=== PATIENT | female | born 1965 | race Caucasian/White ===

== ENCOUNTER 2022-11-26 11:55 | Outpatient (CLI) | payer BC, SELFPAY ==
[2022-11-26 17:54] LABS: C Reactive Protein* 7.1 mg/dL (0.5-1.0)
== END 2022-11-26 11:56 | disposition home or self-care (01) ==
LOC: LKVREF 11:56
PROVIDERS: PCP Emergency Medicine; Visit Provider Emergency Medicine
DX: R07.81 Pleurodynia (principal)
CPT/HCPCS: 86140

== ENCOUNTER 2023-05-24 15:45 | Emergency (ER) | payer BC, SELFPAY ==
[2023-05-24] VITALS (12 sets, daily range): BP systolic 120–133; BP diastolic 84–101; PULSE 80–89; RESP 18; TEMP 36.6; O2SAT 95–100; BMI 24.7
--- NOTE | 2023-05-24 17:42 | CRLHL7_ITS ---
For Patients: As a result of the Cures Act, medical imaging exams and procedure reports are released immediately into your electronic medical record. You may view this report before your referring provider. If you have questions, please contact your health care provider. INDICATION: Fall off horse, left hip pain. TECHNIQUE: Single AP view of the pelvis. Permanently recorded images are archived. COMPARISON: None. FINDINGS: No acute fracture or aggressive osseous lesion. Alignment is normal. The joint spaces are preserved. Degenerative changes of the lower lumbar spine. The soft tissues are unremarkable. IMPRESSION: No evidence of an acute bony abnormality. Dictated by Angelito Clayton MD @ 05/24/2023 6:33:18 PM (Electronically Signed)
--- NOTE | 2023-05-24 17:43 | ED.GENADULT ---
HPI - General Adult General Time Seen by Provider: 17:44 Date Seen: 05/24/23 Chief complaint: Hip Injury/Pain Stated complaint: Fell off horse, hip injured Time Seen by Provider: 05/24/23 17:09 Source: patient, EMS, RN notes reviewed and old records reviewed Mode of arrival: ambulatory Limitations: no limitations History of Present Illness HPI narrative: 57-year-old female who presents today with left buttock and hamstring pain after a horseback riding accident. Patient was running horse and it jerked, she felt pulling and pain in the left buttock radiating down the back of left leg and has had difficulty ambulating and putting weight on the leg since then. She did fall off a horse, no head injury or loss of consciousness. Denies neck pain, back pain, chest pain, or abdominal pain. No numbness or tingling in the leg. Related Data Home Medications Medication Instructions Recorded Confirmed aspirin 81 mg tablet,delayed 81 mg PO QDAY 11/26/22 03/31/23 release cholecalciferol (vitamin D3) 125 125 mcg PO QDAY 11/26/22 03/31/23 mcg (5,000 unit) tablet hydroxychloroquine 200 mg tablet 400 mg PO QDAY 11/26/22 03/31/23 (Plaquenil) loratadine 10 mg tablet 10 mg PO QDAY 11/26/22 03/31/23 Previous Rx's Medication Instructions Recorded citalopram 10 mg tablet 10 mg PO QDAY #90 tabs 03/31/23 clobetasol 0.05 % topical cream 1 applic topical BID #45 grams 03/31/23 lisinopril 10 mg tablet 10 mg PO QDAY #90 tabs 03/31/23 rosuvastatin 10 mg tablet 10 mg PO QDAY #90 tabs 03/31/23 atorvastatin 20 mg tablet 20 mg PO QDAY #90 tabs 04/14/23 Allergies Allergy/AdvReac Type Severity Reaction Status Date / Time morphine Allergy Severe Verified 03/31/23 15:05 Sulfa (Sulfonamide Allergy Intermediate Verified 03/31/23 15:05 Antibiotics) [facility] Medical History (Updated 05/24/23 @ 18:54 by Rudy Martínez MD) Knee pain, left ?M25.562 - Pain in left knee (ICD-10) Tubular adenoma of colon ?D12.6 - Benign neoplasm of colon, unspecified (ICD-10) Eczema ?L30.9 - Dermatitis, unspecified (ICD-10) Actinic keratoses ?L57.0 - Actinic keratosis (ICD-10) Long-term current use of testosterone replacement therapy ?Z79.890 - Hormone replacement therapy (ICD-10) History of malignant neoplasm of cervix ?Z85.41 - Personal history of malignant neoplasm of cervix uteri (ICD-10) Smokes 1 pack of cigarettes per day ?F17.210 - Nicotine dependence, cigarettes, uncomplicated (ICD-10) Cervical cancer ?C53.9 - Malignant neoplasm of cervix uteri, unspecified (ICD-10) 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, unspecified site (ICD-10) Pleuritic chest pain ?R07.81 - Pleurodynia (ICD-10) Surgical History (Updated 02/08/23 @ 17:48 by Valentina Garzon) Status post total abdominal hysterectomy ?Z90.710 - Acquired absence of both cervix and uterus (ICD-10) Status post tonsillectomy ?Z90.89 - Acquired absence of other organs (ICD-10) Status post partial hysterectomy (1992) ?Z90.711 - Acquired absence of uterus with remaining cervical stump (ICD-10) Status post ankle fusion (02/11/16) ?Z98.1 - Arthrodesis status (ICD-10) History of colonoscopy (01/19/09) ?Z98.890 - Other specified postprocedural states (ICD-10) S/P AMINATA-BSO ?Z90.710 - Acquired absence of both cervix and uterus (ICD-10) ?Z90.722 - Acquired absence of ovaries, bilateral (ICD-10) ?Z90.79 - Acquired absence of other genital organ(s) (ICD-10) Family History (Updated 02/12/23 @ 10:31 by Naomi Overton MD) Father Stroke Hyperlipidemia Mother Dementia High blood pressure Sister Hyperlipidemia Social History Smoking Status: Current every day smoker Little interest or pleasure in doing things: several days Feeling down, depressed, or hopeless: not at all Exam Narrative: Exam Narrative: General: Well-developed and well-nourished, no acute distress Head: Atraumatic and normocephalic Eyes: Pupils are equal reactive, extraocular motions intact, conjunctiva clear ENT: External nose and ears are normal, posterior pharynx without erythema or exudate Neck: No midline cervical tenderness, full spontaneous range of motion the neck, trachea midline, no adenopathy Heart: Regular rate and rhythm no murmurs or thrills Lungs: Clear to auscultation bilaterally without wheezes or crackles Abdomen: Soft, nontender, nondistended with active bowel sounds Musculoskeletal: Tenderness of the left buttock. No bruising or abnormal contour, hamstrings intact and mild pain with resisted knee flexion. Neurologic: Awake, alert, and oriented x3, no gross focal neurologic deficits, cranial nerves intact as tested Psych: Mood and affect are appropriate Skin: No rashes Const: Vital Signs, click to edit/add: Vital Signs - 24 hr 05/24/23 16:49 05/24/23 17:27 05/24/23 17:30 Temperature 97.9 F Pulse Rate 83 83 Pulse Rate [Pulse Oximeter] 80 Respiratory Rate 18 Blood Pressure Blood Pressure [Ri ght Upper Arm] 133/84 Pulse Oximetry 99 98 97 Oxygen Delivery Me thod Room Air 05/24/23 17:32 05/24/23 17:45 05/24/23 18:00 Temperature Pulse Rate 82 84 86 Pulse Rate [Pulse Oximeter] Respiratory Rate Blood Pressure 124/88 120/96 H Blood Pressure [Ri ght Upper Arm] Pulse Oximetry 95 100 98 Oxygen Delivery Me thod 05/24/23 18:01 05/24/23 18:02 Temperature Pulse Rate 82 85 Pulse Rate [Pulse Oximeter] Respiratory Rate Blood Pressure 133/101 H Blood Pressure [Ri ght Upper Arm] Pulse Oximetry 99 98 Oxygen Delivery Sd thod Course Course Hospital Course: Patient seen and examined, prior records are reviewed. Patient presents with left buttock and hamstring pain after a accident riding a horse. She did not fall directly on the area but says she felt a pulling. Concern for possible avulsion fracture or strain, x-rays are ordered. Oxycodone ordered for pain. If evaluation is negative today, patient be discharged with weight-bearing as tolerated and follow-up with orthopedics. Reevaluation(s) Time of Reevaluation #1: 18:25 Reevaluation #1: X-ray independently interpreted by me does not demonstrate any acute abnormality Vital Signs Vital signs: Initial Vital Signs Temperature 97.9 F 05/24/23 16:49 Temperature Source Temporal Artery Scan 05/24/23 16:49 Pulse Rate 80 05/24/23 16:49 Pulse Rhythm Regular 05/24/23 16:49 Respiratory Rate 18 05/24/23 16:49 Blood Pressure 133/84 05/24/23 16:49 Blood Pressure Mean 100 05/24/23 16:49 Blood Pressure Position Sitting 05/24/23 16:49 Pulse Oximetry 99 05/24/23 16:49 Oxygen Delivery Method Room Air 05/24/23 16:49 Vital Signs Temperature 97.9 F 05/24/23 16:49 Pulse Rate 80 05/24/23 16:49 Respiratory Rate 18 05/24/23 16:49 Blood Pressure 133/84 05/24/23 16:49 Pulse Oximetry 99 05/24/23 16:49 Oxygen Delivery Method Room Air 05/24/23 16:49 Temperature 97.9 F 05/24/23 16:49 Pulse Rate 85 05/24/23 18:02 Respiratory Rate 18 05/24/23 16:49 Blood Pressure 133/101 H 05/24/23 18:02 Pulse Oximetry 98 05/24/23 18:02 Oxygen Delivery Method Room Air 05/24/23 16:49 Discharge Plan Discharge Clinical Impression: Left hamstring muscle strain Patient Disposition: Home w/ Parent or Adult Condition: Stable Instructions: Hamstring Injury (ED) Additional Instructions: Weight-bearing as tolerated. Tylenol and ibuprofen as needed for pain, oxycodone as needed for severe pain. Follow-up with orthopedic clinic [phone] for further evaluation. Activity Level: Weight Bearing as Tolerated Discharge Diet: Regular Prescriptions: No Action hydroxychloroquine [Plaquenil] 200 mg tablet 400 mg PO QDAY loratadine 10 mg tablet 10 mg PO QDAY aspirin 81 mg tablet,delayed release (DR/EC) 81 mg PO QDAY cholecalciferol (vitamin D3) 125 mcg (5,000 unit) tablet 125 mcg PO QDAY clobetasol 0.05 % cream 1 applic topical BID Qty: 45 0RF Rx Instructions: Apply topically to affected area twice daily, do not use more than 2 weeks at a time. Put away cream when skin has cleared. rosuvastatin 10 mg tablet 10 mg PO QDAY Qty: 90 0RF lisinopril 10 mg tablet 10 mg PO QDAY Qty: 90 3RF citalopram 10 mg tablet 10 mg PO QDAY Qty: 90 3RF atorvastatin 20 mg tablet 20 mg PO QDAY Qty: 90 0RF Follow Up/Referrals: Naomi Overton MD [Primary Care Provider] - Stand Alone Forms: Insurance Business Applicationsth Info Instructions
[2023-05-24] MEDS: OXYCODONE 5 MG TABLET PO (18:00)
--- OUTSIDE RECORDS SUMMARY | 2023-05-24 18:06 | XMS_ITS | Continuity of Care Document ---
Author Name Unknown Organization [facility] Address [address] [place] [address] Phone Care Team Providers Care Technical Communicator Name Role Phone [facility], Miscellaneous Unavailable Unavailable Advance Directives Directive Yes / No Effective Date File Name No Information Encounters Encounter Description Practice Location Reason(s) For Visit Diagnoses Date Provider Providers Copied on Encounter [facility], [address], [place], [address], [place] tel:[phone] [facility] [place] No Information [facility]. [address], [address], [place], [place], [id number] , [place]. tel:[phone] Family History Family Member Type Diagnosis Age At Onset No Information Payers Payer name Insurance type Covered republican ID Authoriza tion(s) No Information Social History Type Description Quantity Date Captured Comments Sex Female Smoking Status No Information Chief Complaint And Reason For Visit No Information Reason For Referral Reason For Referral No Information History Of Present Illness Encounter Date Complaint History Of Prese nt Illness No Information Functional Status Date Functional Assessmen t No Information Instructions Date Instruction Additional Infor mation No Information Assessments Type Assessment Date No Information Patient Care Teams Name Effective Dates (start - stop) Status Members No Information
--- OUTSIDE RECORDS SUMMARY | 2023-05-24 18:07 | XMS_ITS | Patient Health Record ---
Author Name Unknown Organization [facility] Address [address] [place], [place] [id number] Care Team Providers Care Parking Lot Attendant Name Role Phone Wayne Carrillo Primary Care Provider Meño Gentile Unavailable Unavailable ALLERGIES No Known Allergies RESULTS Component Value Reference Range Notes TESTOSTERONE, TOTAL, LC/MS/M S Reviewed date:09/01/2022 11:56:15 AM Interpretation: Performing Lab:[facility], [facility] [address], [address], [place] Angelito Peralta MD Notes/Report: 0 TESTOSTERONE, TOTAL, MS 123 2-45 ng/dL For additional information, please refer to [email or web address] MXR.Fantex/faq/TotalTestostero neLCMSMS (This link is being provided for informational/educational purposes only.) (Note) This test was developed and its analytical performance characteristics have been determined by [employer]. It has not been cleared or approved by the FDA. This assay has been validated pursuant to the CLIA regulations and is used for clinical purposes. [facility] [address] [facility] [address] [facility] [address] Angelito Peralta MD TESTOSTERONE, TOTAL, LC/MS/M S Reviewed date:03/12/2023 01:46:13 PM Interpretation: Performing Lab:[facility], [facility] [facility] [address], [address], [place] Angelito Peralta MD Notes/Report: TESTOSTERONE, TOTAL, MS 139 2-45 ng/dL For additional information, please refer to [email or web address].VC.Digistrive/faq/TotalTestostero neLCMSMS (This link is being provided for informational/educational purposes only.) (Note) This test was developed and its analytical performance characteristics have been determined by [employer]. It has not been cleared or approved by the FDA. This assay has been validated pursuant to the CLIA regulations and is used for clinical purposes. [facility] [address] [address],[address] [facility] [address] Angelito Peralta MD FSH Reviewed date:03/12/2023 01:46:13 PM Interpretation: Performing Lab:JAMES [employer] [address], [place] Jimmy Gonzalez Notes/Report: FSH 16.0 Reference Range Follicular Phase 2.5-10.2 Mid-cycle Peak 3.1-17.7 Luteal Phase 1.5- 9.1 Postmenopausal 23.0-116.3 ESTRADIOL Reviewed date:03/12/2023 01:46:13 PM Interpretation: Performing Lab:JAMES [employer] [facility] [address], [place] Jimmy Gonzalez Notes/Report: ESTRADIOL 104 Reference Range Follicular Phase: 19-144 Mid-Cycle: 64-357 Luteal Phase: 56-214 Postmenopausal: < or = 31 Reference range established on post-pubertal patient population. No pre-pubertal reference range established using this assay. For any patients for whom low Estradiol levels are anticipated (e.g. males, pre-pubertal children and hypogonadal/post-menopausal females), the [employer] [facility] Estradiol, Ultrasensitive, LCMSMS assay is recommended (order code 09101). Please note: patients being treated with the drug fulvestrant (Faslodex(R)) have demonstrated significant interference in immunoassay methods for estradiol measurement. The cross reactivity could lead to falsely elevated estradiol test results leading to an inappropriate clinical assessment of estrogen status. [employer] order code 63476-Tbjgwrwfy, Ultrasensitive LC/MS/MS demonstrates negligible cross reactivity with fulvestrant. Sensitive Estradiol (IH) Reviewed date:08/12/2022 04:25:34 PM Interpretation: Performing Lab: Notes/Report: Access 2 ([id number]), Access 2 [employer] SNSE2 69 20 to 433 pg/mL Testosterone, Total (IH) Reviewed date:08/12/2022 04:25:34 PM Interpretation: Performing Lab: Notes/Report: Access 2 ([id number]), Access 2 [employer] Testo 167 70 to 150 ng/dL H FSH (IH) Reviewed date:08/12/2022 04:25:34 PM Interpretation: Performing Lab: Notes/Report: Access 2 ([id number]), Access 2 [employer] hFSH 25.5 1.8 to 22.5 mIU/mL H Ultrasound : Breast, right Reviewed date:12/04/2022 11:38:03 AM Interpretation: Performing Lab: Notes/Report: Original Report Please see the accompanying mammogram report Read by: GARCIA RIZO M.D. Reviewed and Electronically Signed by: GARCIA RIZO M.D. Mammogram, right breast Reviewed date:12/04/2022 11:38:02 AM Interpretation: Performing Lab: Notes/Report: Original Report EXAM: DIAGNOSTIC RIGHT DIGITAL TOMOSYNTHESIS MAMMOGRAPHY WITH CAD AND FOCUSED RIGHT BREAST ULTRASOUND EXAM. CLINICAL INFORMATION: Follow-up to a mammogram dated 11/28/2022 COMPARISON: 11/28/2022, 11/27/2017 TECHNIQUE: - Diagnostic Mammography: Right MLO spot tomographic images CAD was applied. - Breast Ultrasound was performed using high-resolution ultrasound transducer. Study was focused towards the area of clinical/ mammographic abnormality only. Mammogram: The asymmetry seen on the recent mammogram diminishes with spot imaging, although does not entirely resolved. Further evaluation by ultrasound is recommended and will be performed. Ultrasound: Images of the right subareolar breast were obtained from 1 o'clock to 12 o'clock. There is no sonographic abnormality. CONCLUSION: 1.Negative ACR BI-RADS Category 1-negative RECOMMENDATION: Return to routine annual mammographic screening in one year The above findings and recommendations were discussed in great detail with the patient at the time of imaging including recommendations to return for reassessment if there are clinical changes that are worrisome. A layman's letter will also be sent to the patient communicating results and recommendations. Read by: GARCIA RIZO M.D. Reviewed and Electronically Signed by: GARCIA RIZO M.D. Sensitive Estradiol (IH) Reviewed date:12/04/2022 09:39:18 AM Interpretation: Performing Lab: Notes/Report: Access 2 ([id number]), Access 2 [employer] SNSE2 63 20 to 433 pg/mL Testosterone, Total (IH) Reviewed date:12/04/2022 09:39:18 AM Interpretation: Performing Lab: Notes/Report: Access 2 ([id number]), Access 2 [employer] Testo 95 70 to 150 ng/dL FSH (IH) Reviewed date:12/04/2022 09:39:17 AM Interpretation: Performing Lab: Notes/Report: Access 2 ([id number]), Access 2 [employer] hFSH 11.3 1.8 to 22.5 mIU/mL MAMMOGRAM, SCREENING Reviewed date:12/02/2022 01:00:27 PM Interpretation: Performing Lab: Notes/Report: Original Report EXAM: FULL-FIELD DIGITAL BILATERAL SCREENING 3D TOMOSYNTHESIS MAMMOGRAPHY WITH CAD CLINICAL INFORMATION: Screening. The patient reports no palpable abnormalities or other breast concern. TECHNICAL INFORMATION: Bilateral craniocaudal and mediolateral oblique full-field digital views with breast 3D tomosynthesis images were obtained. CAD was applied. COMPARISON: 11/27/2018 Total Lifetime Breast Cancer Risk assessment (TLR): 6.07%, Low Risk Category (<10%) based on information provided by the patient and mammographic breast density utilizing recognized breast cancer risk assessment model. National average TLR =12.5%. INTERPRETATION: The breast tissue is heterogeneously dense. This decreases the sensitivity of mammography. There is an ovoid asymmetry seen in the subareolar right breast, anterior third, 2 cm from the nipple. This is only demonstrated on the MLO view. Further evaluation by ultrasound is recommended. No mass, suspicious calcification or architectural distortion on the left. BREAST COMPOSITION: Category C. The breasts are heterogeneously dense, which may obscure small masses. CONCLUSION: Right breast asymmetry BI-RADS 0. INCOMPLETE. NEEDS ADDITIONAL IMAGING EVALUATION. [facility] WILL NOTIFY PATIENT OF RESULTS AND SCHEDULE FOLLOW-UP EXAM. Read by: GARCIA RIZO M.D. Reviewed and Electronically Signed by: GARCIA RIZO M.D. REASON FOR REFERRAL No Information MEDICATIONS Medication SIG (Take, Route, Fr equency, Duration) Notes Start Date End Date Status Plaquenil Active Testosterone Pellets Active Vitamin D Active Lisinopril 10 MG 1 tablet Orally Once a day Active Estrogen Pellets Act ruben CeleXA Active SOCIAL HISTORY Tobacco Use: Social History Observation Description Date Details (start date - stop date) Never Smoker NA - NA Sex Assigned At : Social History Observation Description Sex Assigned At Unknown Tobacco Use/Smoking Question Answer Notes Are you a nonsmoker Sexual History Question Answer Notes Had sex in the past 12 months (vaginal, oral, or anal)? Yes Have you ever had a Sexually transmitted disease ? 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 [address] 02/19/2023 Wayne Carrillo [facility] [address] [place] [address] 03/09/2023 Wayne Carrillo Chronic hypertension I10 [facility] [address] [place] [address] 08/08/2022 Wayne Carrillo Menopausal and femal e climacteric states N95.1 [facility] [address] [place] [address] 02/19/2023 Wayne Carrillo [facility] [address] [place] [address] 03/09/2023 Wayne Carrillo Menopausal and femal e climacteric states N95.1 [facility] [address] [place] [address] 11/28/2022 Wayne Carrillo Menopausal and femal e climacteric states N95.1 [facility] [address] [place] [address] 08/22/2022 Wayne Carrillo Menopausal and femal e climacteric states N95.1 [facility] [address] [place] [address] 09/01/2022 Wayne Carrillo Menopausal and femal e climacteric states N95.1 [facility] [address] [place] [address] 12/05/2022 Wayne Carrillo Menopausal and femal e climacteric states N95.1 and Elevated blood pressure reading R03.0 [facility] [address] [place] [address] 02/26/2023 Wayne Carrillo [facility] [address] [place] [address] 03/16/2023 Wayne Carrillo Menopausal and femal e climacteric states N95.1 ASSESSMENTS Encounter Date Diagnosis Assessment Notes Treatment Notes Treatment Clinical Notes 09/01/2022 Menopausal and female climacteric states (ICD-10 - N95.1) 08/08/2022 Menopausal and female climacteric states (ICD-10 - N95.1) 03/09/2023 Chronic hypertension (ICD-10 - I10) Blood pressure in normal range on antihypertensive. Plan to continue HRT as scheduled 03/16/2023 Menopausal and female climacteric states (ICD-10 - N95.1) 12/05/2022 Menopausal and female climacteric states (ICD-10 - N95.1) 12/05/2022 Elevated blood pressure reading (ICD-10 - R03.0) Discussed concerns for continued elevated BP's at her visits since 07/2021 with no diagnosis or follow up with PCP. Has seen PCP recently but relays BP was normal. See's Dr. Huynh at [facility]. We discussed increased risk for CVA/AL if this is not further evaluated or managed and that ongoing HRT is not advised until this gets addressed/managed through her PCP Will have her BP checked at her lab visit before next pellet inseriton. If elevated will postpone future HRT pellet insertions Instructed to go to ER if she develops persistent/severe PÉREZ, vision changes, chest pain, dizziness, or dyspnea which can be attributed to persistent elevated BP's. She verbalizes understanding of this today 11/28/2022 Menopausal and female climacteric states (ICD-10 - N95.1) 11/27/2022 Screening mammogram for breast cancer (ICD-10 - Z12.31) 08/22/2022 Menopausal and female climacteric states (ICD-10 - N95.1) 03/09/2023 Menopausal and female climacteric states (ICD-10 - N95.1) 09/01/2022 Other -HRT pellet inserted as documented above without complication -Post-insertion instructions reviewed. Printed handout with instructions given along with ice pack. Repeat ice to insertion site for 20 min. 3-5 times a day PRN for soreness at insertion site -Report any signs of infection or pellet expulsion -Repeat labs in 3 months (E2, FSH, total testosterone) with next insertion 1 week later -Follow up as needed before next insertion if any concerns 12/05/2022 Other -HRT pellet inserted as documented above without complication -Post-insertion instructions reviewed. Printed handout with instructions given along with ice pack. Repeat ice to insertion site for 20 min. 3-5 times a day PRN for soreness at insertion site -Report any signs of infection or pellet expulsion -Repeat labs in 3 months (E2, FSH, total testosterone) with next insertion 1 week later -Follow up as needed before next insertion if any concerns 03/09/2023 Other 5 min. of total time spent reviewing BP and documenting visit note. I did not exam or talk with pt. 03/16/2023 Other -HRT pellet inserted as documented above without complication -Post-insertion instructions reviewed. Printed handout with instructions given along with ice pack. Repeat ice to insertion site for 20 min. 3-5 times a day PRN for soreness at insertion site -Report any signs of infection or pellet expulsion -Repeat labs in 3 months (E2, FSH, total testosterone) with next insertion 1 week later -Follow up as needed before next insertion if any concerns PLAN OF TREATMENT Next Appt Details Provider Name:Wayne Carrillo, 06/01/2023 04:00:00 PM, [address] [place], [address], Insurance Providers Payer Name Payer Address Payer Phone Subscriber Number Group Number Insured Name Patient Relationship to Insured Coverage Start Date Coverage End Date [employer] [address] [address] [place], [place] [id number] Ngozi Paez Self - patient is the insured MEDICAL (GENERAL) HISTORY Medical History History ICD Code Arthritis Cancer HTN Surgical History Surgery Date(Month/Year) Partial hysterectomy 1993 Ankle fuion 02/2016
== END 2023-05-24 19:21 | disposition home or self-care (01) ==
PROVIDERS: Emergency Provider Family Medicine; PCP Emergency Medicine
DX: S76.312A Strain of muscle, fascia and tendon of the posterior muscle group at thigh level, left thigh, initial encounter (principal); V80.010A Animal-rider injured by fall from or being thrown from horse in noncollision accident, initial encounter
CPT/HCPCS: 72170; 99283; 99284; A9270

== ENCOUNTER 2023-07-23 08:18 | Outpatient (CLI) | payer BC, SELFPAY ==
--- OUTSIDE RECORDS SUMMARY | 2023-07-25 20:14 | XMS_ITS | Continuity of Care Document ---
Author Name Unknown Organization [facility] Address [address] [place] [address] Phone Care Team Providers Care Corporate Lawyer Name Role Phone [employer], Miscellaneous Unavailable Unavailable Advance Directives Directive Yes / No Effective Date File Name No Information Encounters Encounter Description Practice Location Reason(s) For Visit Diagnoses Date Provider Providers Copied on Encounter [facility], [address], [place], [address], [place] tel:[phone] [facility] [place] No Information [facility] Miscellan eous. [address], [address], [place], [place], [id number] , [place]. tel:[phone] Family History Family Member Type Diagnosis Age At Onset No Information Payers Payer name Insurance type Covered libertarian ID Authoriza tion(s) No Information Social History [...]
--- OUTSIDE RECORDS SUMMARY | 2023-07-25 20:14 | XMS_ITS | Patient Health Record ---
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 No pre-pubertal reference range established using this assay. For any patients for whom low Estradiol levels are anticipated (e.g. males, pre-pubertal children and hypogonadal/post-menopausal females), the Pixelated [facility] Estradiol, Ultrasensitive, LCMSMS assay is recommended (order code 09940). Please note: patients being treated with the drug fulvestrant (Faslodex(R)) have demonstrated significant interference in immunoassay methods for estradiol measurement. The cross reactivity could lead to falsely elevated estradiol test results leading to an inappropriate clinical assessment of estrogen status. Pixelated order code 97789-Gfoevcfct, Ultrasensitive LC/MS/MS demonstrates negligible cross reactivity with fulvestrant. FSH Reviewed date:06/12/2023 04:15:14 PM Interpretation: Performing Lab:Lesley RAMIREZ-Julio Asfq[address], TimbreSgdfBV[address] Jimmy Gonzalez Notes/Report: 0; 0; 0 FSH 17.0 Reference Range Follicular Phase 2.5-10.2 Mid-cycle Peak 3.1-17.7 Luteal Phase 1.5- 9.1 Postmenopausal 23.0-116.3 TESTOSTERONE, TOTAL, LC/MS/M S Reviewed date:06/12/2023 04:15:14 PM Interpretation: Performing Lab:Z3E, [facility] [place] [address], [address]nqbhVI[address] Jay Sewell MD Notes/Report: 0; 0; 0 TESTOSTERONE, TOTAL, MS 95 2-45 ng/dL For additional information, please refer to https://education.[employer]/faq/TotalTestostero neLCMSMS (This link is being provided for informational/educational purposes only.) (Note) This test was developed and its analytical performance characteristics have been determined by [employer]. It has not been cleared or approved by the FDA. This assay has been validated pursuant to the CLIA regulations and is used for clinical purposes. [facility] med fusion [address] [address],[address] [facility] [address] Jay Sewell MD MAMMOGRAM, SCREENING Reviewed date:12/02/2022 01:00:27 PM Interpretation: [...] and Electronically Signed by: GARCIA RIZO M.D. Ultrasound : Breast, right Reviewed date:12/04/2022 11:38:03 AM Interpretation: Performing Lab: Notes/Report: Original Report Please see the accompanying mammogram report Read by: GARCIA RIZO M.D. Reviewed and Electronically Signed by: GARCIA RIZO M.D. TESTOSTERONE, TOTAL, LC/MS/M S Reviewed date:03/12/2023 01:46:13 PM Interpretation: Performing Lab:Z3Kenn, [address] [place] [address], [address], ZsbnsjhzbxGB[address] Angelito Peralta MD Notes/Report: TESTOSTERONE, TOTAL, MS 139 2-45 ng/dL For additional information, please refer to https://education.[employer]/faq/TotalTestostero neLCMSMS (This link is being provided for informational/educational purposes only.) (Note) This test was developed and its analytical performance characteristics have been determined by [employer]. It has not been cleared or approved by the FDA. This assay has been validated pursuant to the CLIA regulations and is used for clinical purposes. med fusion [address] [address],[address] [facility] [address] Angelito Peralta MD FSH Reviewed date:03/12/2023 01:46:13 PM Interpretation: Performing Lab:Lesley RAMIREZ-Julio [address] [place] Jimmy Gonzalez Notes/Report: FSH 16.0 Reference Range Follicular Phase 2.5-10.2 Mid-cycle Peak 3.1-17.7 Luteal Phase 1.5- 9.1 Postmenopausal 23.0-116.3 ESTRADIOL Reviewed date:03/12/2023 01:46:13 PM Interpretation: Performing Lab:Lesley RAMIREZ-Julio [address] [place] Jimmy Gonzalez Notes/Report: ESTRADIOL 104 Reference Range Follicular Phase: 19-144 Mid-Cycle: 64-357 Luteal Phase: 56-214 Postmenopausal: < or = 31 Reference range established on post-pubertal patient population. No pre-pubertal reference range established using this assay. For any patients for whom low Estradiol levels are anticipated (e.g. males, pre-pubertal children and hypogonadal/post-menopausal females), the Pixelated [facility] Estradiol, Ultrasensitive, LCMSMS assay is recommended (order code 80987). Please note: patients being treated with the drug fulvestrant (Faslodex(R)) have demonstrated significant interference in immunoassay methods for estradiol measurement. The cross reactivity could lead to falsely elevated estradiol test results leading to an inappropriate clinical assessment of estrogen status. Pixelated order code [id number]-Flswrwlqk, Ultrasensitive LC/MS/MS demonstrates negligible cross reactivity with fulvestrant. Sensitive Estradiol (IH) Reviewed date:12/04/2022 09:39:18 AM Interpretation: Performing Lab: Notes/Report: Access 2 ([id number]), Access 2 Relaylink SNSE2 63 20 to 433 pg/mL Testosterone, Total (IH) Reviewed date:12/04/2022 09:39:18 AM Interpretation: Performing Lab: Notes/Report: Access 2 ([id number]), Access 2 Relay[employer] Testo 95 70 to 150 ng/dL FSH (IH) Reviewed date:12/04/2022 09:39:17 AM Interpretation: Performing Lab: Notes/Report: Access 2 ([id number]), Access 2 Rel[employer] hFSH 11.3 1.8 to 22.5 mIU/mL TESTOSTERONE, TOTAL, LC/MS/M S Reviewed date:09/01/2022 11:56:15 AM Interpretation: Performing Lab:Z3Kenn, [address]F[facility] [place] [address], [address]MobbshphavHK[address] Angelito Peralta MD Notes/Report: 0 TESTOSTERONE, TOTAL, MS 123 2-45 ng/dL For additional information, please refer to https://education.[employer].com/faq/TotalTestostero neLCMSMS (This link is being provided for informational/educational purposes only.) (Note) This test was developed and its analytical performance characteristics have been determined by [employer]. It has not been cleared or approved by the FDA. This assay has been validated pursuant to the CLIA regulations and is used for clinical purposes. [facility] med fusion [address] [facility] [address] [address],[address] [facility] [address] Angelito Peralta MD Sensitive Estradiol (IH) Reviewed date:08/12/2022 04:25:34 PM Interpretation: Performing Lab: Notes/Report: Access 2 ([id number]), Access 2 Relaylink SNSE2 69 20 to 433 pg/mL Testosterone, Total (IH) Reviewed date:08/12/2022 04:25:34 PM Interpretation: Performing Lab: Notes/Report: Access 2 ([id number]), Access 2 Rel[employer] Testo 167 70 to 150 ng/dL H FSH (IH) Reviewed date:08/12/2022 04:25:34 PM Interpretation: Performing Lab: Notes/Report: Access 2 ([id number]), Access 2 [employer] hFSH 25.5 1.8 to 22.5 mIU/mL H REASON FOR REFERRAL No Information MEDICATIONS Medication SIG (Take, Route, Fr equency, Duration) Notes Start Date End Date Status CeleXA Active Plaquenil Active Vitamin D Active Testosterone Pellets Active Estrogen Pellets Act ruben Lisinopril 10 MG 1 tablet Orally Once a day Active SOCIAL HISTORY Tobacco Use: Social History [...] and female climacteric states (N95.1) Active confirmed 813291114 Problem Chronic hypertension (I10) Active confirmed 78351065 Problem Female climacteric state (N95.1) Active confirmed Female climacteric state (089361167) Problem Climacteric (N95.1) Active confirmed 034727824 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 Menopause (841587338) VITAL SIGNS Blood pressure diastolic 72 mm Hg 06/15/2023 Height 70 in 06/15/2023 Blood pressure systolic 110 mm Hg 06/15/2023 Weight 167.4 lbs 06/15/2023 BMI 24.02 kg/m2 06/15/2023 Encounters Encounter Location Date Provider Diagnosis [facility] [id number] [place] [address] 02/26/2023 Wayne Carrillo [facility] [place] [address] [place] [address] 06/09/2023 Wayne Carrillo [facility] [place] [address] [place] [address] 09/01/2022 Wayne Carrillo Menopausal and femal e climacteric states N95.[address] [facility] [place] [address] [place] [address] 12/05/2022 Wayne Carrillo Menopausal and femal e climacteric states N95.1 and Elevated blood pressure reading R03.0 [facility] [place] [address] [place] [address] 03/16/2023 Wayne Carrillo Menopausal and femal e climacteric states N95.[address] [facility] [place] [address] [place] [address] 06/15/2023 Wayne Carrillo Menopausal and femal e climacteric states N95.[address] [facility] [place] [address] [place] [address] 02/19/2023 Wayne Carrillo [facility] [place] [address] [place] [address] 06/01/2023 Wayne Carrillo [facility] [place] [address] [place] [address] 08/08/2022 Wayne Carrillo Menopausal and femal e climacteric states N95.[address] [facility] [place] [address] [place] [address] 08/22/2022 Wayne Carrillo Menopausal and femal e climacteric states N95.1 [facility] [place] [address] [place] [address] 11/28/2022 Wayne Carrillo Menopausal and femal e climacteric states N95.[address] [facility] [place] [address] [place] [address] 03/09/2023 Wayne Carrillo Menopausal and femal e climacteric states N95.[address] [facility] [place] [address] [place] [address] 06/09/2023 Wayne Carrillo Menopausal and femal e climacteric states N95.1 [facility] [address] [place] [address] 02/19/2023 Wayne Carrillo [facility] [address] [place] [address] 03/09/2023 Wayne Carrillo Chronic hypertension I10 [facility] [address] [place] [address] 08/12/2022 Meño Gentile [facility] [address] [place], [place] [id number] 11/27/2022 Wayne Carrillo Screening mammogram for breast cancer Z12.31 [facility] [address] [place], [place] [id number] 06/05/2023 Wayne Carrillo ASSESSMENTS Encounter Date Diagnosis Assessment Notes Treatment Notes Treatment Clinical Notes 08/08/2022 Menopausal and female climacteric states (ICD-10 - N95.1) 08/22/2022 Menopausal and female climacteric states (ICD-10 - N95.1) 09/01/2022 Menopausal and female climacteric states (ICD-10 - N95.1) 11/27/2022 Screening mammogram for breast cancer (ICD-10 - Z12.31) 11/28/2022 Menopausal and female climacteric states (ICD-10 - N95.1) 12/05/2022 Menopausal and female climacteric states (ICD-10 - N95.1) 12/05/2022 Elevated blood pressure reading (ICD-10 - R03.0) Discussed concerns for continued elevated BP's at her visits since 07/2021 with no diagnosis or follow up with PCP. Has seen PCP recently but relays BP was normal. See's Dr. Huynh at [facility]. We discussed increased risk for CVA/KY if this is not further evaluated or [...] BP's. She verbalizes understanding of this today 03/09/2023 Chronic hypertension (ICD-10 - I10) Blood pressure in normal range on antihypertensive. Plan to continue HRT as scheduled 03/16/2023 Menopausal and female climacteric states (ICD-10 - N95.1) 06/09/2023 Menopausal and female climacteric states (ICD-10 - N95.1) 06/15/2023 Menopausal and female climacteric states (ICD-10 - [...] needed before next insertion if any concerns 06/15/2023 Other -HRT pellet inserted as documented above [...] TREATMENT Next Appt Details Provider Name:Wayne Carrillo, 09/14/2023 03:30:00 PM, [address] [place], [address], Provider Name:Wayne Carrillo, 09/21/2023 03:30:00 PM, [address] [place], [address], Insurance Providers Payer Name Payer Address Payer Phone Subscriber Number Group Number Insured Name Patient Relationship to Insured Coverage Start Date Coverage End Date BC [address] [address] [place], [place] [id number] Ngozi Paez Self - patient is the insured MEDICAL (GENERAL) HISTORY Medical History History ICD Code Arthritis Cancer HTN Surgical History Surgery Date(Month/Year) Partial hysterectomy 1993 Ankle fuion 02/2016
== END 2023-07-23 08:19 | disposition home or self-care (01) ==
LOC: NFLDREF 07-25 20:12
PROVIDERS: PCP Emergency Medicine; Referring Provider Emergency Medicine; Visit Provider Emergency Medicine
DX: E78.2 Mixed hyperlipidemia (principal)
CPT/HCPCS: 80061

== ENCOUNTER 2023-09-15 15:30 | Outpatient (RCR) | payer BC, SELFPAY | END 2023-12-29 14:28 | disposition home or self-care (01) | PROVIDERS: PCP Emergency Medicine; Visit Provider Orthopaedic Surgery | DX: S76.312A Strain of muscle, fascia and tendon of the posterior muscle group at thigh level, left thigh, initial encounter (principal); M79.605 Pain in left leg; R26.2 Difficulty in walking, not elsewhere classified; M62.81 Muscle weakness (generalized); Z51.89 Encounter for other specified aftercare | CPT/HCPCS: 97110; 97140; 97161 ==

== ENCOUNTER 2023-12-11 15:06 | Outpatient (CLI) | payer BC, SELFPAY ==
--- NOTE | 2023-12-11 15:20 | MM_ITS ---
Patient: LESLYE DUFFY Facility:?[facility] Patient ID:?[id number] Site Patient ID:?[id number]. Site :?[id number] Study:?XRay-Breast Bilateral 3D screening mammogram w/cad-12/11/2023 3:58:21 PM Ordering Physician:NKECHI Final Report: BILATERAL SCREENING MAMMOGRAM WITH COMPUTER-AIDED DETECTION AND TOMOSYNTHESIS TECHNIQUE: CC and MLO views were obtained. These mammographic images have been obtained using full-field digital technique. These mammographic images were interpreted with the benefit of computer-aided detection. Breast Tomosynthesis was used in this interpretation. COMPARISON FILM: 09/24/21, 06/04/20, 11/27/17. FINDINGS: The breasts are heterogeneously dense, which may obscure small masses IMPRESSION: There is no radiographic evidence for malignancy. ASSESSMENT: BI-RADS Category 1: Negative RECOMMENDATION: Routine screening mammogram in 1 year. A lay language report of this examination will be provided to the patient. Faisal Lundy M.D. Diagnostic Radiologist [email or web address] ELISHA/shandra R& Transcribed: 4:25 p.m. TAQUERIA/Dictated by: Faisal Lundy MD @ 12/14/2023 9:10:00 AM Signed by:?Faisal Lundy MD @12/14/2023 4:36:09 PM (Electronic Signature)
== END 2023-12-11 15:07 | disposition home or self-care (01) ==
LOC: MAMMO 15:07
PROVIDERS: PCP Emergency Medicine; Visit Provider Emergency Medicine
DX: Z12.31 Encounter for screening mammogram for malignant neoplasm of breast (principal); R92.2 Inconclusive mammogram
CPT/HCPCS: 77063; 77067

== ENCOUNTER 2024-05-16 17:07 | Outpatient (CLI) | payer BC, SELFPAY ==
--- OUTSIDE RECORDS SUMMARY | 2024-05-16 17:10 | XMS_ITS | Clinical Summary ---
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 0 01/16/2017 Active lisinopril-hydroch lorothiazide, 20-25 mg, (PRINZIDE, ZESTORETIC) 20-25 mg per tabletIndications: HTN (hypertension) Take 1 tablet by mouth once daily. 90 tablet 4 01/19/2017 Active naproxen (NAPROSYN) 500 mg tabletIndications: Neck pain Take 1 tablet by mouth 2 times daily with meals. 14 tablet 06/03/2018 Active HYDROcodone-acetam inophen, 5-325 mg, (NORCO) per tabletIndications: Neck pain Take 1 tablet by mouth every 4 hours if needed for Pain Max acetaminophen dose: 4000mg in 24 hrs. 15 tablet 06/03/2018 Active Active Problems Problem Noted Date Diagnosed Date HTN (hypertension) 12/08/2014 Menopause 01/20/2014 Tobacco use disorder 09/02/2011 Dysthymic disorder 08/13/2007 Routine general medical exam ination at a health care facility Overview: Pap: 03/2004 Mammo: never Colonoscopy:2008. Recheck 10 years Bone density:unknown Personal history of malignant neoplasm of cervix uteri Overview: Hx of cervical cancer Immunizations Name Administration Dates Next Due AMB Influenza, IIV3 (Age >=3 years)(Flu Clinic Only) 08/25/2008 Influenza, IIV3 (Age >=3 years) 07/31/2015,10/17,08/13/2007 Influenza, IIV4 09/24/2016,07/31/2015 Td (Age >=7 Years) 06/10/1999 Tdap 11/22/2010 Family History Medical History Relation Name Comments Psychiatric illness Father h/o alzh eimer's Blood Disease Maternal Grandmother anemia Blood Disease Mother anemia Anesthesia Problem No Family History Cancer-breast No Family History Cancer-colon No Family History Relation Name Status Comments Father Maternal Grandmother Mother Social History Tobacco Use Types Packs/Day Years Used Date Smoking Tobacco: Every Day Cigarettes 0.5 20 Smokeless Tobacco: Never Tobacco Cessation:Ready to Q uit: No; Counseling Given: Yes Alcohol Use Standard Drinks/Week Comments Yes 0 (1 standard drink = 0.6 oz pur e alcohol) social on the weekend Sex and Gender Information Value Date Recorded Sex Assigned at Not on file Gender Identity Not on file Sexual Orientation Not on file Obstetrics History Para Term AB IAB SAB Ectopic Multiple Livin g Live Births 0 0 0 0 0 0 0 0 0 0 Last Filed Vital Signs Vital Sign Reading Time Taken Comments Blood Pressure 120/87 06/03/2018 6:56 PM CDT Pulse 83 06/03/2018 6:56 PM CDT Temperature 36.8 ??C (98.2 ??F) 06/03/2018 3:35 PM CD T Respiratory Rate 16 06/03/2018 6:56 PM CDT Oxygen Saturation 96% 06/03/2018 6:56 PM CDT Inhaled Oxygen Concentration - - Weight 78.5 kg (173 lb) 06/03/2018 3:35 PM CDT Height 177.8 cm (5' 10) 06/03/2018 3:35 PM CDT Body Mass Index 24.82 06/03/2018 3:35 PM CDT Plan of Treatment Health Maintenance Due Date Last Done Comments HIV for age 15-65 1981 Hepatitis C screening for age 18-79 1984 Mammogram for age 45-75 12/30/2014 12/31/19 14, 09/02/2011, 08/25/2008, Additional history exists Zoster (shingles) series for age 50+ (1 of 2) 2016 BMI (ht and wt on same day) for age 18+ 03/16/2018 03/16/2017, 01/16/2017, 02/04/2016, Additional history exists Depression screening for age 12+ 03/16/2018 03/16/2017, 01/16/2017, 01/02/2016 Colonoscopy through age 75 01/19/2019 01/19/2009 Lipids for age 45-75 12/16/2019 12/15/2014, 12/30/2013, 09/08/2011, Additional history exists Tetanus booster 11/22/2020 11/22/2010, 06/10/1999 COVID-19 vaccine series (2022- season) 2023 Influenza for age 50-64 06/05/2024 09/24/20 16, 07/31/2015, 07/31/2015, Additional history exists Tdap Completed 11/22/2010 Pneumococcal series for age 6-64 Aged Out No longer eligible based on patient's age to complete this topic Procedures Procedure Name Priority Date/Time Associated Diagnosis Comments LIPID PANEL W REFLEX MEASURED LDL Routine 12/15/2014 2:56 PM CDT Hyperlipidemia XR MAMMO BILAT SCREEN FFDM (IA) Routine 12/30/2013 8:58 AM CDT Other screening mammogram from Last 3 Months or Most Recently Relevant to Health Maintenance Results * (ABNORMAL) LIPID PANEL W REFLEX MEASURED LDL (12/15/2014 2:56 PM CDT) CHOLESTEROL,TOTAL 261(H) 100 - 199 mg/dL 12/15/2014 3:30 PM CDT [facility] TRIGLYCERIDES 152(H) <150 mg/dL 12/15/2014 3:30 PM CDT [facility] HDL CHOLESTEROL 80 >40 mg/dL 5 3:30 PM CDT [facility] NON-HDL CHOLESTEROL 181(H) <145 mg/dl 12/15/2014 3:30 PM CDT [facility] CHOL/HDL RATIO 3.26 <4.50 12/15/2014 3:30 PM CDT [facility] LDL CHOLESTEROL 151(H) <=130 mg/dL 12/15/2014 3:30 PM CDT [facility] PATIENT STATUS FASTING 12/15/2014 3:30 PM CDT [facility] Blood specimen (specimen) BLOOD SPECIMEN / Unknown Venipuncture / Unknown 12/15/2014 2:56 PM CDT 12/15/2014 2:56 PM CDT Lissa Mccollum CHEMISTRY [facility] [address] [place] [address], * XR MAMMO BILAT SCREEN FFDM (12/30/2013 8:58 AM CDT) Anatomical Region Laterality Modality BREASTS, Breast Left, Breast Right Bilateral Mammography Impressions 12/30/2013 1:37 PM CDT ??There is no radiographic evidence for malignancy. ??Recommend annual mammograms. A lay language report of this examination will be provided to the patient. MAMMOGRAM ASSESSMENT: ??ACR 2 Benign Narrative 12/30/2013 1:37 PM CDT XR MAMMO BILAT SCREEN FFDM [G0202.0] CLINICAL HISTORY: ??This is an asymptomatic 48 y.o. patient. INDICATION FOR EXAM: Mammogram Screening. TECHNIQUE: CC & MLO views were obtained. ??This digital study was evaluated with the assistance of Computer-Aided Detection. ?? COMPARISON FILMS: Yes 09/02/11 [facility] 08/25/08 [facility] FINDINGS: ??Mammographically, the breast tissue is extremely dense. ??This may lower the sensitivity of mammography (>75% glandular). ??No suspicious masses or microcalcifications. ??Benign appearing calcifications within left breast. Procedure Note Aracely Martino MD - 12/30/2013 XR MAMMO BILAT SCREEN FFDM [G0202.0] CLINICAL HISTORY: This is an asymptomatic 48 y.o. patient. INDICATION FOR EXAM: Mammogram Screening. TECHNIQUE: CC & MLO views were obtained. This digital study was evaluatedwith the assistance of Computer-Aided Detection. COMPARISON FILMS: Yes 09/02/11 [facility] 08/25/08 [facility] FINDINGS: Mammographically, the breast tissue is extremely dense. Thismay lower the sensitivity of mammography (>75% glandular). No suspiciousmasses or microcalcifications. Benign appearing calcifications withinleft breast. IMPRESSION: There is no radiographic evidence for malignancy. Recommendannual mammograms. A lay language report of this examination will be provided to the patient. MAMMOGRAM ASSESSMENT: ACR 2 Benign Lissa Mccollum MAMMO from Last 3 Months or Most Recently Relevant to Health Maintenance Care Teams [employer] Teacher Relationship Specialty Start Date End Date Clinic, [facility] [address] [place], [place] [phone] PCP - General 05/16/24
--- OUTSIDE RECORDS SUMMARY | 2024-05-16 17:10 | XMS_ITS | Patient Health Record ---
Author Organization [facility] Address [address] [place] [address] Care Team Providers Care Burner Operator Name Role Phone Wayne Carrillo Primary Care Provider Allergies Allergen (clinical drug ingredient) Drug/Non Drug Allergy documented on EMR Reaction Allergy Type Onset Date Status lisinopril Lisinopril Swelling Drug Allergy Activ e Substance with 7-gtobobn-1-methylgluta ryl-coenzyme A reductase inhibitor mechanism of action (substance) Statins Swelling Drug Allergy Active Results Component Value Reference Range Notes FSH (IH) Reviewed date:03/15/2024 01:07:12 PM Interpretation: Performing Lab: Notes/Report: Access 2 ([id number]), [place] - Lab Testosterone, Total (IH) Reviewed date:03/15/2024 01:07:12 PM Interpretation: Performing Lab: Notes/Report: Access 2 ([id number]), [place] - [facility] Sensitive Estradiol (IH) Reviewed date:03/15/2024 01:07:12 PM Interpretation: Performing Lab: Notes/Report: Access 2 ([id number]), [place] [facility] Sensitive Estradiol (IH) Reviewed date:12/15/2023 04:25:42 PM Interpretation: Performing Lab: Notes/Report: Access 2 ([id number]), Access 2 [facility] Testosterone, Total (IH) Reviewed date:12/15/2023 04:25:42 PM Interpretation: Performing Lab: Notes/Report: Access 2 ([id number]), Access 2 [facility] FSH (IH) Reviewed date:12/15/2023 04:25:42 PM Interpretation: Performing Lab: Notes/Report: Access 2 ([id number]), Access 2 [facility] Sensitive Estradiol (IH) Reviewed date:09/21/2023 04:28:21 PM Interpretation: Performing Lab: Notes/Report: Access 2 ([id number]), Access 2 [facility] Testosterone, Total (IH) Reviewed date:09/21/2023 04:28:21 PM Interpretation: Performing Lab: Notes/Report: Access 2 ([id number]), Access 2 [facility] FSH (IH) Reviewed date:09/21/2023 04:28:21 PM Interpretation: Performing Lab: Notes/Report: Access 2 ([id number]), Access 2 [facility] TESTOSTERONE, TOTAL, LC/MS/M S Reviewed date:06/12/2023 04:15:14 PM Interpretation: Performing Lab:[facility] [address], [address] [place] Jay Sewell MD Notes/Report: 0; 0; 0 TESTOSTERONE, TOTAL, MS 95 2-45 ng/dL For additional information, please refer to https://education.OOHLALA Mobile/faq/TotalTestosteroneLCMS MS (This link is being provided for informational/educational purposes only.) (Note) This test was developed and its analytical performance characteristics have been determined by [employer]. It has not been cleared or approved by the FDA. This assay has been validated pursuant to the CLIA regulations and is used for clinical purposes. [facility] [address] [address],[address] [facility] [address] Jay Sewell MD FSH Reviewed date:06/12/2023 04:15:14 PM Interpretation: Performing Lab:[facility] [address], [place] Jimmy Gonzalez Notes/Report: 0; 0; 0 FSH 17.0 Reference Range Follicular Phase 2.5-10.2 Mid-cycle Peak 3.1-17.7 Luteal Phase 1.5- 9.1 Postmenopausal 23.0-116.3 ESTRADIOL Reviewed date:06/12/2023 04:15:14 PM Interpretation: Performing Lab:[facility] [address], [place]ace[place]qoc[place]U[address] Jimmy Gonzalez Notes/Report: 0; 0; 0 ESTRADIOL 63 Reference Range Follicular Phase: 19-144 Mid-Cycle: 64-357 Luteal Phase: 56-214 Postmenopausal: < or = 31 Reference range established on post-pubertal patient population. No pre-pubertal reference range established using this assay. For any patients for whom low Estradiol levels are anticipated (e.g. males, pre-pubertal children and hypogonadal/post-menopausal females), the [employer] [facility] Estradiol, Ultrasensitive, LCMSMS assay is recommended (order code [id number]). Please note: patients being treated with the drug fulvestrant (Faslodex(R)) have demonstrated significant interference in immunoassay methods for estradiol measurement. The cross reactivity could lead to falsely elevated estradiol test results leading to an inappropriate clinical assessment of estrogen status. [employer]erta[employer] order code [id number], Ultrasensitive LC/MS/MS demonstrates negligible cross reactivity with fulvestrant. Reason For Referral No Information Medications Medication SIG (Take, Route, Fr equency, Duration) Notes Start Date End Date Status Testosterone Pellets Active Vitamin D Active Estrogen Pellets Act ruben CeleXA Active Plaquenil Active Social History Tobacco Use: Social History Observation Description Date Details (start date - stop date) Current Smoker NA - NA Tobacco Use/Smoking Question Answer Notes Are you a current smoker How often do you smoke cigarettes? every day Alcohol Screen (Audit-C) Question Answer Notes Did you have a drink contain ing alcohol in the past year? Yes How often did you have a dri nk containing alcohol in the past year? Monthly or less (1 point) Points 1 Interpretation Negative Sexual History Question Answer Notes Had sex in the past 12 months (vaginal, oral, or anal)? Yes Have you ever had a Sexually transmitted disease ? 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 Vital Signs Blood pressure diastolic 80 mm Hg 03/18/2024 Height 70 in 03/18/2024 Blood pressure systolic 126 mm Hg 03/18/2024 Weight 169.8 lbs 03/18/2024 BMI 24.36 kg/m2 03/18/2024 Encounters Encounter Location Date Provider Diagnosis [facility] [address] [place] [address] 12/21/2023 Wayne Carrillo Menopausal and femal e climacteric states N95.1 [facility] [address] [place] [address] 03/18/2024 Wayne Carrillo Menopausal and femal e climacteric states N95.1 [facility] [address] [place] [address] 06/15/2023 Wayne Carrillo Menopausal and femal e climacteric states N95.1 [facility] [address] [place] [address] 09/21/2023 Wayne Carrillo Menopausal and femal e climacteric states N95.1 [facility] [address] [place] [address] 06/09/2023 Wayne Carrillo Menopausal and femal e climacteric states N95.1 [facility] [address] [place] [address] 09/14/2023 Wayne Carrillo Menopausal and femal e climacteric states N95.1 [facility] [address] [place] [address] 12/14/2023 Wayne Carrillo Menopausal and femal e climacteric states N95.1 [facility] [address] [place] [address] 03/11/2024 Wayne Carrillo Menopausal and femal e climacteric states N95.1 [facility] [address] [place] [address] 06/05/2023 Wayne Carrillo [address] [place], [place] [id number] 11/21/2023 Wayne Carrillo Assessments Encounter Date Diagnosis (ICD Code) Assessment Notes Treatment Notes Treatment Clinical Notes 06/09/2023 Menopausal and female climacteric states (ICD-10 - N95.1) 06/15/2023 Menopausal and female climacteric states (ICD-10 - N95.1) 09/14/2023 Menopausal and female climacteric states (ICD-10 - N95.1) 09/21/2023 Menopausal and female climacteric states (ICD-10 - N95.1) 12/14/2023 Menopausal and female climacteric states (ICD-10 - N95.1) 12/21/2023 Menopausal and female climacteric states (ICD-10 - N95.1) 03/11/2024 Menopausal and female climacteric states (ICD-10 - N95.1) 03/18/2024 Menopausal and female climacteric states (ICD-10 - N95.1) 06/15/2023 Other -HRT pellet inserted as documented [...] needed before next insertion if any concerns 09/21/2023 Other -HRT pellet inserted as documented above without complication -Post-insertion instructions reviewed. Printed handout with instructions given along with ice pack. Repeat ice to insertion site for 20 min. 3-5 times a day PRN for soreness at insertion site -Mammogram due before her next insertion, pt. typically completes at [facility] -Report any signs of infection or pellet expulsion -Repeat labs in 3 months (E2, FSH, total testosterone) with next insertion 1 week later -Follow up as needed before next insertion if any concerns 12/21/2023 Other -HRT pellet inserted as documented above [...] needed before next insertion if any concerns 03/18/2024 Other -HRT pellet inserted as documented above [...] needed before next insertion if any concerns Plan Of Treatment Next Appt Details Provider Name:Wayne Carrillo, 05/27/2024 01:15:00 PM, [address], [address], Provider Name:Wayne Carrillo, 06/03/2024 01:00:00 PM, [address] [place], [address], Insurance Providers Payer Name Payer Address Payer Phone Subscriber Number Group Number Insured Name Patient Relationship to Insured Coverage Start Date Coverage End Date BCBS - (Client Bill) [address] [place] [address] [id number] Ngozi Paez Self - patient is the insured Medical (General) History Medical History History ICD Code Arthritis Cancer HTN Surgical History Surgery Date(Month/Year) Partial hysterectomy 1993 Ankle fusion 02/2016
--- OUTSIDE RECORDS SUMMARY | 2024-05-16 17:10 | XMS_ITS | Clinical Summary ---
Author Organization [facility] Address [facility] [place] [address] Care Team Providers Care Cigarette Making Machine Catcher Name Role Phone Matthias Nunes MD Unavailable [phone] Edwardo Roland Unavailable [phone] [facility]- Primary Care Provider Allergies Active Allergy Reactions Criticality Noted Date Comments Seasonal Allergies 12/11/2015 Sulfa Antibiotics 11/25/2022 Medications Medication Sig Dispensed Refills Start Date End Date Status venlafaxine (EFFEXOR-XR) 150 MG 24 hr capsule Active hydrochlorothiazide (HYDRODIURIL) 25 MG tablet 05/05/2014 Active estradiol (ESTRACE) 2 MG tablet 11/05/2014 Active Social History Tobacco Use Types Packs/Day Years Used Date Smoking Tobacco: Never Assessed Adolescent Education Answer Date Record ed Getting School Help Needed Not on file 07/19 Sex and Gender Information Value Date Recorded Sex Assigned at Not on file Gender Identity Not on file Sexual Orientation Not on file Last Filed Vital Signs Vital Sign Reading Time Taken Comments Blood Pressure 131/101 11/25/2022 3:41 PM QUALITY IMPROVEMENT ENGINEER Pulse 84 11/25/2022 3:41 PM QUALITY IMPROVEMENT ENGINEER Temperature 36.6 ??C (97.9 ??F) 11/25/2022 10:[address] Respiratory Rate 16 11/25/2022 3:41 PM QUALITY IMPROVEMENT ENGINEER Oxygen Saturation 98% 11/25/2022 3:41 PM QUALITY IMPROVEMENT ENGINEER Inhaled Oxygen Concentration - - Weight - - Height - - Body Mass Index - - Plan of Treatment Health Maintenance Due Date Last Done Comments ADVANCE CARE PLANNING 1966 ANNUAL REVIEW OF HM ORDERS 1966 CT COLONOGRAPHY 1966 FIT 1966 FLEX SIG 1966 sDNA (Cologuard) 1966 COLONOSCOPY 1976 COLORECTAL CANCER SCREENING 1976 HIV SCREENING 1981 HEPATITIS C SCREENING 1984 HEPATITIS B IMMUNIZATION (1 of 3 - 19+ 3-dose series) 1985 PAP 1987 LIPID 2006 YEARLY PREVENTIVE VISIT 04/18/2021 04/18/2020 MAMMO SCREENING 06/04/2022 06/04/2020 COVID-19 Vaccine ( season) 2023 10/17/2021, 01/12/2021, 12/22/2020 PHQ-2 (once per calendar year) 2023 INFLUENZA VACCINE (#1) 2024 9, 11/24/2017, 09/24/2016, Additional history exists GLUCOSE 11/25/2025 11/25/2022 DTAP/TDAP/TD IMMUNIZATION (3 - Td or Tdap) 10/28/2030 10/28/2020, 11/22/2010, 06/10/1999 ZOSTER IMMUNIZATION Completed 11/04/2019, 9 HPV IMMUNIZATION Aged Out No longer e ligible based on patient's age to complete this topic IPV IMMUNIZATION Aged Out No longer e ligible based on patient's age to complete this topic MENINGITIS IMMUNIZATION Aged Out No l onger eligible based on patient's age to complete this topic Pneumococcal Vaccine: Pediatrics (0 to 5 Years) and At-Risk Patients (6 to 64 Years) Aged Out No longer eligible based on patient's age to complete this topic RSV MONOCLONAL ANTIBODY Aged Out No l onger eligible based on patient's age to complete this topic Procedures Procedure Name Priority Date/Time Associated Diagnosis Comments BASIC METABOLIC PANEL STAT 11/25/2022 11:05 AM QUALITY IMPROVEMENT ENGINEER from Last 3 Months or Most Recently Relevant to Health Maintenance Results * (ABNORMAL) Basic metabolic panel (BMP) (11/25/2022 11:05 AM QUALITY IMPROVEMENT ENGINEER) Sodium 140 136 - 145 mmol/L 11/25/2022 11:50 AM QUALITY IMPROVEMENT ENGINEER [facility] Potassium 5.1 3.4 - 5.3 mmol/L 11/25/2022 11:50 AM [facility] Comment:Specimen slightly he molyzed, potassium may be falsely elevated. Chloride 100 98 - 107 mmol/L 11/25/2022 11:50 AM [facility] Carbon Dioxide (CO2) 26 22 - 29 mmol/L 11/25/2022 11:50 AM [facility] Anion Gap 14 7 - 15 mmol/L 11/25/2022 11:50 AM [facility] Urea Nitrogen 11.3 6.0 - 20.0 mg/dL 11/25/2022 11:50 AM [facility] Creatinine 0.49(L) 0.51 - 0.95 mg/dL 11/25/2022 11:50 AM [facility] Calcium 9.9 8.6 - 10.0 mg/dL 11/25/2022 11:50 AM [facility] Glucose 94 70 - 99 mg/dL 11/25/2022 11:50 AM [facility] GFR Estimate >90 >60 mL/min/1.7 3m2 11/25/2022 11:50 AM [facility] Comment:eGFR calculated [facility] 2020 CKD-EPI equation. Blood BLOOD SPECIMEN / Unknown Venipuncture / Unknown 11/25/2022 11:05 AM QUALITY IMPROVEMENT ENGINEER 11/25/2022 11:11 AM QUALITY IMPROVEMENT ENGINEER Nisha Caputo MD LAB [facility] Organization Address City/State/ZIP Co de Phone Number LABORATORY [facility] [address] Lab (1st floor, no room number) [place] [address], [facility] [phone] from Last 3 Months or Most Recently Relevant to Health Maintenance Care Teams Cigarette Making Machine Catcher Relationship Specialty Start Date End Date [facility]- [address] [place] [address] PCP - General 11/25/22 Matthias Nunes MD [address] [place] [address] Orthopedics 11/07/15 Edwardo Roland [address] [place] [address] Podiatry 11/07/15
--- OUTSIDE RECORDS SUMMARY | 2024-05-16 17:10 | XMS_ITS ---
Author Organization [facility] Address [address] [place] [address] Care Team Providers Care Blocker Polishing Name Role Phone Wayne Carrillo Primary Care Provider Allergies Allergen (clinical drug ingredient) Drug/Non Drug Allergy documented on EMR Reaction Allergy Type Onset Date Status lisinopril Lisinopril Swelling Drug Allergy Activ e Substance with 4-rushryu-5-methylgluta ryl-coenzyme A reductase inhibitor mechanism of action (substance) Statins Swelling Drug Allergy Active REASON FOR VISIT HRT Insert- right side, Mammo: 12/11/23, BC: Hysterectomy, LABS: estradiol 67, fsh 10.8, testosterone 81, 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,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 Medications Medication SIG (Take, Route, Fr equency, [...] less (1 point) Points 1 Interpretation Negative Vital Signs Height 70 in 03/18/2024 Weight 169.8 lbs 03/18/2024 Blood pressure systolic 126 mm Hg 03/18/20 24 Blood pressure diastolic 80 mm Hg 024 BMI 24.36 kg/m2 03/18/2024 Encounters Encounter Location Date Provider Diagnosis [facility] [address] [place] [address] 03/18/2024 Wayne Gerardo Menopausal and femal e climacteric states N95.1 Assessments Encounter Date Diagnosis (ICD Code) Assessment Notes Treatment Notes Treatment Clinical Notes 03/18/2024 Menopausal and female climacteric states (ICD-10 - N95.1) 03/18/2024 Other -HRT pellet inserted as documented [...] insertion if any concerns Plan Of Treatment Treatment Notes Assessment Notes Other -HRT pellet inserted as documented above [...] needed before next insertion if any concerns Next Appt Details Follow Up: 3 Months, Reason: Provider Name:Wayne Carrillo, 05/27/2024 01:15:00 PM, [address] [place], [address], Provider Name:Wayne Simónanna, 06/03/2024 01:00:00 PM, [address] [place], [address], Progress Notes * Ngozi DUFFYDOB: [birth year] (58 yo F)Acc No.[id number]:03/18/2024 Patient:?Ngozi DUFFY Provider:?ABIGAIL Pulido :1965???Age:58 Y???Sex:Female D ate:03/18/2024 Address:[facility] [id number] Structured Data:Country [place] : [place] Subjective: * Chief Complaints: * ???1. HRT Insert- right side . 2. Mammo: 12/11/23. 3. BC: Hysterectomy. 4. LABS: estradiol 67, fsh 10.8, testosterone 81. 5. 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 * HPI: ???*General:? Ngozi is a 58 year old postmenopausal female here today for repeat hormone pellet insertion. Her previous insert was on 09/11/23. She received Estradiol 18 mg and Testosterone 100 mg in the left hip. She feeling tired at this time. Had to stop?lisionopril for HTN due to having allergic response. Also stopped statin after having a hamstring tear and muscle weakness on therapy. Lab Results: 03/11/24 E2 :67 (50) FSH : 10.8 (12.7) Total testosterone:81 (91) LMP:s/p hysterectomy Last Mammogram: 12/11/23, negative. * Medical History:?Arthritis, Cancer, HTN. * Sustainable Design Coordinator History:?Date of Last Period:?Hysterectomy.? Control: ?Hysterectomy.?Sexual Activity?Currently sexually active.?Sexually Tranmitted Disease (STD)?None.? * OB History:?GPAL:?G0.? * Surgical History:?Partial hy sterectomy 1993, Ankle fusion 02/2016. * Hospitalization/Major Diagno stic Procedure:?Denies Past Hospitalization. * Family History:?Mother: diag nosed with Hypertension.? * Social History:?Tobacco Use:?Tobacco Use/Smoking?Are you a?current smoker ?How often do you smoke cigarettes??every day ???Drugs/Alcohol:?Drugs?Have you used drugs other than those for medical reasons in the past 12 months??No ?Alcohol Screen (Audit-C)?Did you have a drink containing alcohol in the past year??Yes ?How often did you have a drink containing alcohol in the past year??Monthly or less (1 point) ?Points?1 ?Interpretation?Negative ?Caffeine?Intake:?1-2 cups per day ???Miscellaneous:?Exercise: no. * Medications:?Taking Estrogen Pellets , Taking Testosterone Pellets , Taking Vitamin D , Taking Plaquenil , Taking CeleXA , Discontinued Lisinopril 10 MG Tablet 1 tablet Orally Once a day , Medication List reviewed and reconciled with the patient * Allergies:?Lisinopril: Swell ing, Statins: Swelling. Objective: * Vitals:?Ht: 70 in, Wt:169.8l bs, BP:126/80mm Hg, BMI:24.36Index. * ???Past Orders: ???Lab:Sensitive Estradiol ( IH) (Order Date - 03/11/2024) (Collection Date & Time - 03/14/2024 11:39 AM) ? Value Reference Range ?SNSE2 67 20 to 433 - pg /mL ???Lab:FSH (IH) (Order Date - 03/11/2024) (Collection Date & Time - 03/14/2024 11:44 AM) ? Value Reference Range ?hFSH 10.8 1.8 to 22.5 - m IU/mL ???Lab:Testosterone, Total ( IH) (Order Date - 03/11/2024) (Collection Date & Time - 03/14/2024 11:50 AM) ? Value Reference Range ?Testo 81 70 to 150 - ng /dL * Examination: ???*General Examination: ?GENERAL APPEARANCE:?in no acute distress, well developed, well nourished.?The patient was positioned left lateral and the right gluteal area was cleansed. Following Betadine cleansing and sterile drape, anesthesia was administered; 1% buffered Lidocaine. A 3mm incision was made and the hormone pellets were introduced via trocar in the usual fashion. The incision was reapproximated with a bandage and pressure gauze was applied. The patient tolerated the procedure well. Today's dose Estradiol: 18 mg Testosterone: 100 mg Insertion site prepped per protocol. 3mm incision made in ____ L _x___ R Hip __x___Superficial Deep ___0_ degrees SOTTOPELLE LOT# E: See [facility] EMR for lot # T: See [facility] EMR for lot #. Assessment: * Assessment: 1.?Menopausal and female cli macteric states - N95.1 (Primary)? Plan: * Treatment: * Procedure Codes:?1012 [facility] Membership No Charge Fee * Preventive Medicine:? ??YOUR PREVENTIVE WELLNESS PLAN:?Breast Cancer Screening (Mammogram):?My last mammogram was done on:?12/11/2023 Negative ?Cervical Cancer Screening (Pap Smear):?My last Pap smear was done on:?10/05/2014 ?Osteoporosis Screening (Bone Density Measurement):?My last bone density was done on:?Never ?Colorectal Cancer Screening:?Last Done Colonoscopy?10/05/2018 * Follow Up:?3 Months * Images: Billing Information: * Visit Code:? * Procedure Codes:? 1012 [facility] Membership No Charge Fee. * Sign off status: Completed true * Provider:?ABIGAIL Pulido Date:?03/05 Generated for Jeffry leon/Sabrina/Diony on:?05/16/2024 05:09 PM CDT History and Physical Notes * Examination Category Sub-Category Detail Notes *General Examination GENERAL APPEARANCE: in no a cute distress, well developed, well nourished
--- OUTSIDE RECORDS SUMMARY | 2024-05-16 17:10 | XMS_ITS | Referral Summary ---
Author Organization [place] Address [facility] [place] [address] Care Team Providers Care Financial Advocate Name Role Phone Matthias Nunes MD Unavailable [phone] Edwardo Roland Unavailable [phone] [facility]- Primary Care Provider Allergies Active Allergy Reactions [...] Comments Blood Pressure 131/101 11/25/2022 3:41 PM [employer] Pulse 84 11/25/2022 3:41 PM [employer] Temperature 36.6 ??C (97.9 ??F) 11/25/2022 10:[address] Respiratory Rate 16 11/25/2022 3:41 PM [employer] Oxygen Saturation 98% 11/25/2022 3:41 PM [employer] Inhaled Oxygen Concentration - - Weight - - Height - - Body Mass Index - - Plan of Treatment Not on file Procedures Procedure Name Priority Date/Time Associated Diagnosis Comments BASIC METABOLIC PANEL STAT 11/25/2022 11:05 AM [employer] from Last 3 Months or Most Recently Relevant to Health Maintenance Results * (ABNORMAL) Basic metabolic panel (BMP) (11/25/2022 11:05 AM [employer]) Sodium 140 136 - 145 mmol/L 11/25/2022 11:50 AM [facility] Potassium 5.1 3.4 - 5.3 mmol/L 11/25/2022 11:50 AM [facility] Comment:Specimen slightly he molyzed, potassium may be falsely elevated. Chloride 100 98 - 107 mmol/L 11/25/2022 11:50 AM [facility] Carbon Dioxide (CO2) 26 22 - 29 mmol/L 11/25/2022 11:50 AM [facility] Anion Gap 14 7 - 15 mmol/L 11/25/2022 11:50 AM [facility] Urea Nitrogen 11.3 6.0 - 20.0 mg/dL 11/25/2022 11:50 AM [facility] Creatinine 0.49(L) 0.51 - 0.95 mg/dL 11/25/2022 11:50 AM [facility] Calcium 9.9 8.6 - 10.0 mg/dL 11/25/2022 11:50 AM [facility] Glucose 94 70 - 99 mg/dL 11/25/2022 11:50 AM [facility] GFR Estimate >90 >60 mL/min/1.7 3m2 11/25/2022 11:50 AM [facility] Comment:eGFR calculated usin g 2020 CKD-EPI equation. Blood BLOOD SPECIMEN / Unknown Venipuncture / Unknown 11/25/2022 11:05 AM [employer] 11/25/2022 11:11 AM [employer] Nisha Caputo MD LAB - BLOOD ORDNey BOYKIN [facility] Acute Care Lab [address] Lab (1st floor, no room number) [place] [address], [facility] [phone] from Last 3 Months or Most Recently Relevant to Health Maintenance Care Teams Financial Advocate Relationship Specialty Start Date End Date [facility]- [address] [place], [place] [phone] PCP - General 11/25/22 Matthias Nunes MD [address] [place] [place], [place] [phone] Orthopedics 11/07/15 Edwardo Roland [address] [place], [place] [phone] Podiatry 11/07/15
--- OUTSIDE RECORDS SUMMARY | 2024-05-16 17:10 | XMS_ITS ---
Author Organization [facility] Address [address] [address] Care Team Providers Care Industrial Chemistry Teacher Name Role Phone Wayne Carrillo Primary Care Provider Results Component Value Reference Range Notes FSH (IH) Reviewed date:03/15/2024 01:07:12 PM Interpretation: Performing Lab: Notes/Report: Access 2 ([id number]) [place] - Lab hFSH 10.8 1.8 to 22.5 mIU/mL Testosterone, Total (IH) Reviewed date:03/15/2024 01:07:12 PM Interpretation: Performing Lab: Notes/Report: Femasys 2 ([id number]) [facility] - Lab Testo 81 70 to 150 ng/dL Sensitive Estradiol (IH) Reviewed date:03/15/2024 01:07:12 PM Interpretation: Performing Lab: Notes/Report: Access 2 ([id number]) [place] - [facility] SNSE2 67 20 to 433 pg/mL REASON FOR VISIT IH PRIME HRT Labs Medications Medication SIG (Take, Route, Fr equency, Duration) Notes Start Date End Date Status Lisinopril 10 MG 1 tablet Orally Once a day Active Testosterone Pellets Active Estrogen Pellets Act ruben Plaquenil Active CeleXA Active Vitamin D Active Encounters Encounter Location Date Provider Diagnosis [facility] [address] [place] [address] 03/11/2024 Wayne Carrillo Menopausal and femal e climacteric states N95.1 Assessments Encounter Date Diagnosis (ICD Code) Assessment Notes Treat ment Notes Treatment Clinical Notes 03/11/2024 Menopausal and female climacteric states (ICD-10 - N95.1) Plan Of Treatment Next Appt Details Provider Name:Wayne Carrillo, 05/27/2024 01:15:00 PM, [address] [place], [address], Provider Name:Wayne Carrillo, 06/03/2024 01:00:00 PM, [address] [place], [address], Progress Notes * Ngozi DUFFYDOB: [birth year] (58 yo F)Acc No.[id number]:03/11/2024 Patient:?Ngozi DUFFY Provider:?ABIGAIL Pulido :1965???Age:58 Y???Sex:Female D ate:03/11/2024 Address:[address] [place], [place] [id number] Structured Data:[place] : [facility] Subjective: * Chief Complaints: * ???1. IH PRIME HRT Labs. * Medical History:? * Medications:?Taking Lisinopr il 10 MG Tablet 1 tablet Orally Once a day , Taking Estrogen Pellets , Taking Testosterone Pellets , Taking Vitamin D , Taking Plaquenil , Taking CeleXA Objective: * Vitals:? Assessment: * Assessment: 1.?Menopausal and female cli macteric states - N95.1 (Primary)? Plan: * Treatment: ? Value Reference Range ?SNSE2 67 20 to 433 - pg/ mL * Here are your labs for your visit this week. See you then. Wayne Carrillo 03/15/2024 01:07:09 PM CDT > ?LAB: FSH () (Collection Date & Time - 03/14/2024 11:44 AM)* ? Value Reference Range ?hFSH 10.8 1.8 to 22.5 - m IU/mL * Here are your labs for your visit this week. See you then. Wayne Carrillo 03/15/2024 01:07:09 PM CDT > ?LAB: Testosterone, Total (IH) (Collection Date & Time - 03/14/2024 11:50 AM)* ? Value Reference Range ?Testo 81 70 to 150 - ng/ dL * Here are your labs for your visit this week. See you then. Wayne Carrillo 03/15/2024 01:07:09 PM CDT > * Procedure Codes:?30517 VENIP UNCT, ROUTINE* * Images: Billing Information: * Visit Code:? * Procedure Codes:? 05777 VENIPUNCT, ROUTINE*. * Sign off status: Completed true * Provider:?ABIGAIL Pulido Date:?04/2024 Generated for Jeffry leon/Sabrina/eTmartha on:?05/16/2024 05:09 PM CDT
--- OUTSIDE RECORDS SUMMARY | 2024-05-16 17:10 | XMS_ITS | Continuity of Care Document ---
Author Organization [facility] Address [address] [place] [address] Phone Care Team Providers Care District Court Reporter Name Role Phone [facility], Miscellaneous Unavailable Unavailable Advance Directives Directive Yes / No Effective Date File Name No Information Encounters Encounter Description Practice Location Reason(s) For Visit Diagnoses Date Provider Providers Copied on Encounter [facility], [address], [place], [address], [place] tel:[phone] [facility] [place] No Information [facility] Miscellan eous. [address], [address], [place], [place], [id number] , [place]. tel:[phone] Family History Family Member Type Diagnosis Age At Onset No Information Payers Payer name Insurance type Covered alliance party ID Authoriza tion(s) No Information Social History [...]
--- NOTE | 2024-05-16 17:30 | CRLHL7_ITS ---
For Patients: As a result of the 21st Century Cures Act, medical imaging exams and procedure reports are released immediately into your electronic medical record. You may view this report before your referring provider. If you have questions, please contact your health care provider. CLINICAL INDICATION: Strain of muscle, fascia and tendon of long head. COMPARISON IMAGING STUDIES: Radiographs from 05/03/2024. TECHNICAL: Non-contrast MRI of the right shoulder. Axial, sagittal oblique and coronal oblique T1, PD, PD FS and T2-weighted images. 1.5 Cee MR scanner. FINDINGS: GLENOHUMERAL JOINT: Effusion: Small glenohumeral joint effusion with synovitis. Humeral Head Articular Cartilage: Maintained. Glenoid Articular Cartilage: Maintained. Alignment: Maintained. Capsule: No capsular edema or abnormal capsular thickening. OSSEOUS STRUCTURES: Cystic-like change involving the posterior greater tuberosity-humeral head junction is likely reactive. There is no acute fracture or avascular necrosis. CORACOACROMIAL ARCH: Acromial Morphology: Type 2 acromial morphology. Mild lateral downward sloping of the acromion. No os acromiale. No significant subacromial spur. Lateral acromial thickness is 7 mm. Acromiohumeral Interval: At its narrowest, the interval measures 4 mm. Chronic thickening of the coracoacromial ligament. Coracohumeral Interval: At its narrowest, the coracohumeral interval measures 14 mm. Coracoid index is 4 mm. ACROMIOCLAVICULAR JOINT REGION: AC joint degenerative arthrosis with small effusion. The joint space appears widened. Coracoclavicular ligament intact. BURSAE: Small amount of subacromial-subdeltoid bursal fluid. ROTATOR CUFF TENDONS AND MUSCLES AND DELTOID: Supraspinatus and Infraspinatus: The distal supraspinatus and infraspinatus tendons are abnormal over an approximately 3.7 centimeter anterior/posterior by 3.5 centimeter medial/lateral extent. This includes an area of full-thickness supraspinatus tendon tearing proximal to the footplate involving the mid to posterior tendon that measures approximately 0.8 centimeters anterior/posterior by 1.8 centimeters medial/lateral extent. There is additional partial-thickness tearing of the more anterior supraspinatus tendon and distal infraspinatus tendon adjacent to the area of full-thickness tearing. Mild supraspinatus muscle atrophy. Infraspinatus muscle mass is maintained. Teres Minor: No tendinosis, tendon tearing, muscle atrophy or muscle edema. Subscapularis: No significant distal subscapularis tendon tear or muscle atrophy. Deltoid: No muscle atrophy. BICEPS TENDON, LONG HEAD: Long head of the biceps tendon is severely abnormal with near-complete to complete tearing. GLENOID LABRUM: Intact. OTHER FINDINGS: There is no abnormality within the suprascapular or spinoglenoid notches nor within the quadrilateral space. No axillary adenopathy or mass. IMPRESSION: 1. Severely abnormal distal supraspinatus and infraspinatus tendons. There is an area of full-thickness supraspinatus tendon tearing present proximal to the footplate involving the mid to posterior tendon. Additional partial-thickness tendon tearing of the anterior supraspinatus tendon and also involving the infraspinatus tendon. Mild supraspinatus muscle atrophy. 2. Near-complete to complete tearing the long head of the biceps tendon. 3. AC joint degenerative arthrosis. 4. Small glenohumeral joint effusion with mild synovitis. Dictated by Abdirashid Kelly MD @ 05/17/2024 9:59:36 AM (Electronically Signed)
== END 2024-05-16 17:08 | disposition home or self-care (01) ==
LOC: MRI 17:08
PROVIDERS: PCP Emergency Medicine; Visit Provider Emergency Medicine
DX: S46.111A Strain of muscle, fascia and tendon of long head of biceps, right arm, initial encounter (principal); M75.101 Unspecified rotator cuff tear or rupture of right shoulder, not specified as traumatic; M19.011 Primary osteoarthritis, right shoulder; M25.411 Effusion, right shoulder
CPT/HCPCS: 73221

== ENCOUNTER 2024-05-31 08:35 | Outpatient (CLI) | payer BC, SELFPAY | END 2024-05-31 08:36 | disposition home or self-care (01) | LOC: NFLDREF 06-03 06:20 | PROVIDERS: PCP Emergency Medicine; Referring Provider Emergency Medicine; Visit Provider Emergency Medicine | DX: I10 Essential (primary) hypertension (principal); E78.2 Mixed hyperlipidemia | CPT/HCPCS: 80048; 80061 ==

== ENCOUNTER 2024-06-20 15:34 | Outpatient (CLI) | payer BC, SELFPAY ==
--- OUTSIDE RECORDS SUMMARY | 2024-06-20 15:36 | XMS_ITS ---
Author Organization [facility] Address [address] [place] [address] Care Team Providers Care Trust Accounts Supervisor Name Role Phone Wayne Carrillo Primary Care Provider Encounters Encounter Location Date Provider Diagnosis [facility] [address] [place] [address] 06/10/2024 Wayne Carrillo Plan Of Treatment Next Appt Details Provider Name:Wayne Carrillo, 08/19/2024 01:00:00 PM, [address] [place], [address], Provider Name:Wayne Carrillo, 08/26/2024 01:00:00 PM, [address] [place], [address], Progress Notes * Ngozi DUFFYDOB: [birth year] (58 yo F)Acc No.[id number]:06/10/2024 Patient:?DUFFYNgozi SALINAS Provider:?ABIGAIL Pulido :1965???Age:58 Y???Sex:Female D ate:06/10/2024 Address:[address] [id number] Subjective: * Chief Complaints: * ??? * Medical History:? Objective: * Vitals:? Assessment: Plan: * Treatment: * Images: Billing Information: * Visit Code:? * Procedure Codes:? * Electronic signature of Jerry Carrillo on 06/20/2024 at 03:36 PM CDT Sign off status: Pending * Provider:?ABIGAIL Pulido Date:?03/2024 Generated for Jeffry leon/Sabrina/Diony on:?06/20/2024 03:36 PM CDT
--- OUTSIDE RECORDS SUMMARY | 2024-06-20 15:36 | XMS_ITS ---
Author Organization [facility] Address [address] [place] [address] Care Team Providers Care Medical Technician Name Role Phone Wayne Carrillo Primary Care Provider [phone] Allergies Allergen (clinical drug ingredient) Drug/Non Drug Allergy documented on EMR Reaction Allergy Type Onset Date Status lisinopril Lisinopril Swelling Drug Allergy Activ e Substance with 6-rylnrxe-1-methylgluta ryl-coenzyme A reductase inhibitor mechanism of action (substance) Statins Swelling Drug Allergy Active REASON FOR VISIT HRT Insert- left side, Mammo: 12/11/23, BC: Hysterectomy, LABS: estradiol 73, fsh 15.6, testosterone 118, 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,[employer]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 Medications Medication SIG (Take, Route, Fr equency, Duration) Notes Start Date End Date Status Testosterone Pellets Active Vitamin D Active Estrogen Pellets Act ruben Plaquenil Active CeleXA Active Social History Tobacco Use: Social History [...] Interpretation Negative Vital Signs Height 70 in 06/03/2024 Weight 168.9 lbs 06/03/2024 Blood pressure systolic 130 mm Hg 06/03/20 24 Blood pressure diastolic 74 mm Hg 024 BMI 24.23 kg/m2 06/03/2024 Encounters Encounter Location Date Provider Diagnosis [facility] [address] [place] [address] 06/03/2024 Wayne Gerardo Menopausal and femal e climacteric states N95.1 Assessments Encounter Date Diagnosis (ICD Code) Assessment Notes Treatment Notes Treatment Clinical Notes 06/03/2024 Menopausal and female climacteric states (ICD-10 - N95.1) 06/03/2024 Other -HRT pellet inserted as documented above [...] Up: 3 Months, Reason: Provider Name:Wayne Carrillo, 08/19/2024 01:00:00 PM, [address] [place], [address], Provider Name:Wayne Simónanna, 08/26/2024 01:00:00 PM, [address] [place], [address], Progress Notes * Ngozi DUFFYDOB: [birth year] (58 yo F)Acc No.[id number]:06/03/2024 Patient:?Ngozi DUFFY Provider:?ABIGAIL Pulido :1965???Age:58 Y???Sex:Female D ate:06/03/2024 Address:[facility] [place] [id number] Subjective: * Chief Complaints: * ???1. HRT Insert- left side. 2. Mammo: 12/11/23. 3. BC: Hysterectomy. 4. LABS: estradiol 73, fsh 15.6, testosterone 118. 5. 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 * HPI: ???*General:? Ngozi is a 58 year old postmenopausal female here today for repeat hormone pellet insertion. Her previous insert was on 03/18/24. She received Estradiol 18 mg and Testosterone 100 mg in the right hip. She reports it took 3 days to get hot flashes resolved after last round of therapy otherwise feeling well at this time without concerns ro bothersome symptoms. HRT labs from 05/27/24 reviewed as documented below LMP:s/p hysterectomy Last Mammogram: 12/11/23, negative. * Medical History:?Arthritis, Cancer, HTN. * [place] History:?Date of Last Period:?Hysterectomy.? Control: ?Hysterectomy.?Sexual Activity?Currently sexually active.?Sexually Tranmitted Disease (STD)?None.? * OB History:?GPAL:?G0.? * Surgical History:?Partial hy sterectomy 1993, Ankle fusion 02/2016. * Hospitalization/Major Diagno stic Procedure:?Denies Past Hospitalization. * Family History:?Mother: aiden manriqued with Hypertension.? * Social History:?Tobacco Use:?Tobacco Use/Smoking?Are [...] year??Monthly or less (1 point) ?Points?1 ?Interpretation?Negative ???Miscellaneous:?Exercise: no. * Medications:?Taking Estrogen Pellets , Taking Testosterone Pellets , Taking Vitamin D , Taking Plaquenil , Taking CeleXA , Medication List reviewed and reconciled with the patient * Allergies:?Lisinopril: Swell ing, Statins: Swelling. Objective: * Vitals:?Ht: 70 in, Wt:168.9l bs, BP:130/74mm Hg, BMI:24.23Index. * ???Past Orders: Lab:Sensitive Estradiol (IH) * Collection Date 05/30/2024 03/14/2024 Collection Time 11:15 AM 11:39 AM Order Date 05/27/2024 03/11/2024 SNSE2 73 (Ref Range: 20 to 433 pg/mL) 67 (Ref Range: 20 to 433 pg/mL) * Lab:FSH (IH) * Collection Date 05/30/2024 03/14/2024 Collection Time 11:18 AM 11:44 AM Order Date 05/27/2024 03/11/2024 hFSH 15.6 (Ref Range: 1.8 to 22.5 mIU/mL) 10.8 (Ref Range: 1.8 to 22.5 mIU/mL) * Lab:Testosterone, Total (IH) * Collection Date 05/30/2024 03/14/2024 Collection Time 11:21 AM 11:50 AM Order Date 05/27/2024 03/11/2024 Testosterone, Total (IH) 118?H (Ref Range: 0-75 ng/dL) 81 (Ref Range: 70 to 150 ng/dL) * Examination: ???*General Examination: ?GENERAL APPEARANCE:?in no acute distress, well developed, well nourished.?The patient was positioned right lateral and the left gluteal area was cleansed. Following Betadine cleansing and sterile drape, anesthesia was administered; 1% buffered Lidocaine. A 3mm incision was made and the hormone pellets were introduced via trocar in the usual fashion. The incision was reapproximated with a bandage and pressure gauze was applied. The patient tolerated the procedure well. Today's dose Estradiol: 18 mg Testosterone: 87.5 mg Insertion site prepped per protocol. 3mm incision made in __x__ L ____ R Hip __x___Superficial Deep ___0_ degrees SOTTOPELLE LOT# documented below due to [facility] [employer] website being down E: 18mg lot #[id number] T: 87.5mg lot #[id number]. Assessment: * Assessment: 1.?Menopausal and female cli macteric states - N95.1 (Primary)??? Plan: * Treatment: * Procedure Codes:?1012 Adrianezuñiga Membership No Charge Fee * Follow Up:?3 Months * Images: Billing Information: * Visit Code:? * Procedure Codes:? 1012 mikey Membership No Charge Fee. * Sign off status: Completed true * Provider:?ABIGAIL Pulido Date:?05/07 Generated for Jeffry leon/Sabrina/Diony on:?06/20/2024 03:36 PM CDT History and Physical Notes * Examination Category Sub-Category Detail Notes *General Examination GENERAL APPEARANCE: in no a cute distress, well developed, well nourished
--- OUTSIDE RECORDS SUMMARY | 2024-06-20 15:36 | XMS_ITS ---
Author Organization [facility] Address [address] [place] [address] Care Team Providers Care Medical Anthropologist Name Role Phone Wayne Carrillo Primary Care Provider Results Component Value Reference Range Notes FSH (IH) Reviewed date:05/31/2024 09:19:38 AM Interpretation: Performing Lab: Notes/Report: Access 2 ([id number]) [place] - Lab hFSH 15.6 1.8 to 22.5 mIU/mL Testosterone, Total (IH) Reviewed date:05/31/2024 09:19:38 AM Interpretation: Performing Lab: Notes/Report: Access 2 ([id number]) [place] - Lab Testo 118 0-75 ng/dL Sensitive Estradiol (IH) Reviewed date:05/31/2024 09:19:38 AM Interpretation: Performing Lab: Notes/Report: Access 2 ([id number]) [place] - Lab SNSE2 73 20 to 433 pg/mL REASON FOR VISIT IH PRIME HRT Labs Medications Medication SIG (Take, Route, Fr equency, Duration) Notes Start Date End Date Status CeleXA Active Estrogen Pellets Act ruben Testosterone Pellets Active Vitamin D Active Plaquenil Active Encounters Encounter Location Date Provider Diagnosis [facility] [address] [place] [address] 05/27/2024 Wayne Carrillo Menopausal and femal e climacteric states N95.1 Assessments Encounter Date Diagnosis (ICD Code) Assessment Notes Treat ment Notes Treatment Clinical Notes 05/27/2024 Menopausal and female climacteric states (ICD-10 - N95.1) Plan Of Treatment Next Appt Details Provider Name:Wayne Carrillo, 08/19/2024 01:00:00 PM, [address] [place], [address], Provider Name:Wayne Carrillo, 08/26/2024 01:00:00 PM, [address] [place], [address], Progress Notes * Ngozi DUFFYDOB: [birth year] (58 yo F)Acc No.[id number]:05/27/2024 Patient:?Ngozi DUFFY Provider:?ABIGAIL Pulido :1965???Age:58 Y???Sex:Female D ate:05/27/2024 Address:[address] [id number] Subjective: * Chief Complaints: * ???1. IH PRIME HRT Labs. * Medical History:? * Medications:?Taking Estrogen Pellets , Taking Testosterone Pellets , Taking Vitamin D , Taking Plaquenil , Taking CeleXA Objective: * Vitals:? Assessment: * Assessment: 1.?Menopausal and female cli macteric states - N95.1 (Primary)??? Plan: * Treatment: ? Value Reference Range ?SNSE2 73 20 to 433 - pg/ mL * Here are your lab results fo r your upcoming visit. See you then. Wyane Carrillo 05/31/2024 09:19:34 AM CDT > ?LAB: FSH (IH) (Collection Date & Time - 05/30/2024 11:18 AM)* ? Value Reference Range ?hFSH 15.6 1.8 to 22.5 - m IU/mL * Here are your lab results fo r your upcoming visit. See you then. Wayne Carrillo 05/31/2024 09:19:34 AM CDT > ?LAB: Testosterone, Total (IH) (Collection Date & Time - 05/30/2024 11:21 AM)* ? Value Reference Range ?Testosterone, Total (IH) 118 H 0-75 - ng/dL * Here are your lab results fo r your upcoming visit. See you then. Wayne Carrillo 05/31/2024 09:19:34 AM CDT > * Procedure Codes:?81794 VENIP UNCT, ROUTINE* * Images: Billing Information: * Visit Code:? * Procedure Codes:? 30389 VENIPUNCT, ROUTINE*. * Sign off status: Completed true * Provider:?ABIGAIL Pulido Date:?05/06 Generated for Jeffry leon/Sabrina/Diony on:?06/20/2024 03:36 PM CDT
--- OUTSIDE RECORDS SUMMARY | 2024-06-20 15:37 | XMS_ITS | Clinical Summary ---
Author Organization [place] Address [facility] [place] [address] Care Team Providers Care Strategic Solutions Consultant Name Role Phone Matthias Nunes MD Unavailable [phone] Edwardo Roland Unavailable [facility]- Primary Care Provider Allergies Active Allergy Reactions [...] Comments Blood Pressure 131/101 11/25/2022 3:41 PM MOTORS AND CONTROLS TESTER Pulse 84 11/25/2022 3:41 PM MOTORS AND CONTROLS TESTER Temperature 36.6 ??C (97.9 ??F) 11/25/2022 10:[address] Respiratory Rate 16 11/25/2022 3:41 PM MOTORS AND CONTROLS TESTER Oxygen Saturation 98% 11/25/2022 3:41 PM MOTORS AND CONTROLS TESTER Inhaled Oxygen Concentration - - Weight - [...] VISIT 04/18/2021 04/18/2020 MAMMO SCREENING 06/04/2022 06/04/2020 PHQ-2 (once per calendar year) 2023 COVID-19 Vaccine ( season) 2024 10/17/2021, 01/12/2021, 12/22/2020 INFLUENZA VACCINE (#1) 2024 9, 11/24/2017, 09/24/2016, [...] BASIC METABOLIC PANEL STAT 11/25/2022 11:05 AM MOTORS AND CONTROLS TESTER from Last 3 Months or Most Recently Relevant to Health Maintenance Results * (ABNORMAL) Basic metabolic panel (BMP) (11/25/2022 11:05 AM MOTORS AND CONTROLS TESTER) Sodium 140 136 - 145 mmol/L 11/25/2022 11:50 AM MOTORS AND CONTROLS TESTER [facility] Potassium 5.1 3.4 - 5.3 mmol/L 11/25/2022 11:50 AM MOTORS AND CONTROLS TESTER [facility] Comment:Specimen slightly he molyzed, potassium may be falsely elevated. Chloride 100 98 - 107 mmol/L 11/25/2022 11:50 AM [facility] Carbon Dioxide (CO2) 26 22 - 29 mmol/L 11/25/2022 11:50 AM [facility] Anion Gap 14 7 - 15 mmol/L 11/25/2022 11:50 AM [facility] Urea Nitrogen 11.3 6.0 - 20.0 mg/dL 11/25/2022 11:50 AM [facility] Creatinine 0.49(L) 0.51 - 0.95 mg/dL 11/25/2022 11:50 AM [facility] Calcium 9.9 8.6 - 10.0 mg/dL 11/25/2022 11:50 AM [facility] Glucose 94 70 - 99 mg/dL 11/25/2022 11:50 AM [facility] GFR Estimate >90 >60 mL/min/1.7 3m2 11/25/2022 11:50 AM [facility] Comment:eGFR calculated usin g 2020 CKD-EPI equation. Blood BLOOD SPECIMEN / Unknown Venipuncture / Unknown 11/25/2022 11:05 AM MOTORS AND CONTROLS TESTER 11/25/2022 11:11 AM MOTORS AND CONTROLS TESTER Nisha Caputo MD LAB - [facility] Organization Address City/State/ZIP Co de Phone Number [facility] [address] Lab (1st floor, no room number) [place] [address], [facility] [phone] from Last 3 Months or Most Recently Relevant to Health Maintenance Care Teams Strategic Solutions Consultant Relationship Specialty Start Date End Date [facility]- [address] [place] [address] PCP - General 11/25/22 Matthias Nunes MD [address] [place] [address] [id number] Orthopedics 11/07/15 Edwardo Roland [address] [place] [address] [id number] Podiatry 11/07/15
--- OUTSIDE RECORDS SUMMARY | 2024-06-20 15:37 | XMS_ITS | Patient Health Record ---
Author Organization [facility] Address [address] [place] [address] Care Team Providers Care Student Recruiter Name Role Phone Wayne Carrillo Primary Care Provider [phone] Allergies Allergen (clinical drug ingredient) Drug/Non Drug Allergy documented on EMR Reaction Allergy Type Onset Date Status lisinopril Lisinopril Swelling Drug Allergy Activ e Substance with 8-gtydqpg-8-methylgluta ryl-coenzyme A reductase inhibitor mechanism of action (substance) Statins Swelling Drug Allergy Active Results Component Value Reference Range Notes FSH (IH) Reviewed date:05/31/2024 09:19:38 AM Interpretation: Performing Lab: Notes/Report: Access 2 ([id number]), Clare - Lab Testosterone, Total (IH) Reviewed date:05/31/2024 09:19:38 AM Interpretation: Performing Lab: Notes/Report: Access 2 ([id number]), Jasmina - Lab Sensitive Estradiol (IH) Reviewed date:05/31/2024 09:19:38 AM Interpretation: Performing Lab: Notes/Report: Access 2 ([id number]), [facility]as[facility] - Lab Sensitive Estradiol (IH) Reviewed date:03/15/2024 01:07:12 PM Interpretation: Performing Lab: Notes/Report: Access 2 ([id number]), [facility] - Lab Testosterone, Total (IH) Reviewed date:03/15/2024 01:07:12 PM Interpretation: Performing Lab: Notes/Report: Access 2 ([id number]), [facility] - Lab FSH (IH) Reviewed date:03/15/2024 01:07:12 PM Interpretation: Performing Lab: Notes/Report: Access 2 ([id number]), [facility] - Lab Sensitive Estradiol (IH) Reviewed date:12/15/2023 04:25:42 PM Interpretation: Performing Lab: Notes/Report: Access 2 ([id number]), Access 2 [facility] Testosterone, Total (IH) Reviewed date:12/15/2023 04:25:42 PM Interpretation: Performing Lab: Notes/Report: Access 2 ([id number]), Access 2 [facility] FSH (IH) Reviewed date:12/15/2023 04:25:42 PM Interpretation: Performing Lab: Notes/Report: Access 2 ([id number]), Access 2 [facility] Sensitive Estradiol (IH) Reviewed date:09/21/2023 04:28:21 PM Interpretation: Performing Lab: Notes/Report: Access 2 ([id number]), Access 2 [facility] Testosterone, Total (IH) Reviewed date:09/21/2023 04:28:21 PM Interpretation: Performing Lab: Notes/Report: Access 2 ([id number]), Access 2 [facility] FSH (IH) Reviewed date:09/21/2023 04:28:21 PM Interpretation: Performing Lab: Notes/Report: Access 2 ([id number]), Access 2 [facility] Reason For Referral No Information Medications Medication [...] Problem Status W/U Status Risk Notes Problem [id number] Menopausal and female climacteric states (N95.1) Active confirmed Problem 17915808 Chronic hypertension (I10) Active confirmed Problem Female climacteric state (072055373) Female climacteric state (N95.1) Active confirmed Problem [id number] Climacteric (N95.1) Active confirmed Problem Menopause (343779086) 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 Vital Signs Blood pressure diastolic 74 mm Hg 06/03/2024 Height 70 in 06/03/2024 Blood pressure systolic 130 mm Hg 06/03/2024 Weight 168.9 lbs 06/03/2024 BMI 24.23 kg/m2 06/03/2024 Encounters Encounter Location Date Provider Diagnosis [facility] [address] [place] [address] 12/21/2023 Wayne Carrillo Menopausal and femal e climacteric states N95.1 [facility] [address] [place] [address] 03/18/2024 Wayne Carrillo Menopausal and femal e climacteric states N95.1 [facility] [address] [place] [address] 06/03/2024 Wayne Carrillo Menopausal and femal e climacteric states N95.1 [facility] [address] [place] [address] 09/21/2023 Wayne Carrillo Menopausal and femal e climacteric states N95.1 [facility] [address] [place] [address] 09/14/2023 Wayne Carrillo Menopausal and femal e climacteric states N95.1 [facility] [address] [place] [address] 12/14/2023 Wayne Carrillo Menopausal and femal e climacteric states N95.1 [facility] [address] [place] [address] 03/11/2024 Wayne Carrillo Menopausal and femal e climacteric states N95.1 [facility] [address] [place] [address] 05/27/2024 Wayne Carrillo Menopausal and femal e climacteric states N95.[address] [place], [place] [address] 11/21/2023 Wayne Carrillo Assessments Encounter Date Diagnosis (ICD Code) Assessment Notes Treatment Notes Treatment Clinical Notes 09/14/2023 Menopausal and female climacteric states (ICD-10 - N95.1) 09/21/2023 Menopausal and female climacteric states (ICD-10 - N95.1) 12/14/2023 Menopausal and female climacteric states (ICD-10 - N95.1) 12/21/2023 Menopausal and female climacteric states (ICD-10 - N95.1) 03/11/2024 Menopausal and female climacteric states (ICD-10 - N95.1) 03/18/2024 Menopausal and female climacteric states (ICD-10 - N95.1) 05/27/2024 Menopausal and female climacteric states (ICD-10 - N95.1) 06/03/2024 Menopausal and female climacteric states (ICD-10 - N95.1) 09/21/2023 Other -HRT pellet inserted as documented above without complication -Post-insertion instructions reviewed. Printed handout with instructions given along with ice pack. Repeat ice to insertion site for 20 min. 3-5 times a day PRN for soreness at insertion site -Mammogram due before her next insertion, pt. typically completes at [facility] -Report any signs of infection or pellet [...] needed before next insertion if any concerns 06/03/2024 Other -HRT pellet inserted as documented [...] Details Provider Name:Wayne Carrillo, 08/19/2024 01:00:00 PM, [address] [place], [address], Provider Name:Wayne Carrillo, 08/26/2024 01:00:00 PM, [address], [place], [address], Insurance Providers Payer Name Payer Address Payer Phone Subscriber Number Group Number Insured Name Patient Relationship to Insured Coverage Start Date Coverage End Date BCBS - (Client Bill) [address] [place] [address] [id number] Ngozi Paez Self - patient is the insured Medical (General) History Medical History History ICD Code Arthritis Cancer HTN Surgical History Surgery Date(Month/Year) Partial hysterectomy 1993 Ankle fusion 02/2016
--- OUTSIDE RECORDS SUMMARY | 2024-06-20 15:37 | XMS_ITS | Continuity of Care Document ---
Author Organization [facility] Address [address] [place] [address] Phone Care Team Providers Care Rectifier Operator Name Role Phone [facility], Miscellaneous Unavailable Unavailable Advance Directives Directive Yes / No Effective Date File Name No Information Encounters Encounter Description Practice Location Reason(s) For Visit Diagnoses Date Provider Providers Copied on Encounter [facility], [address], [place], [address], [place] tel:[phone] [facility] [place] No Information [facility] Miscellan eous. [address], [address], [place], [place], [id number] , [place]. tel:[phone] Family History Family Member Type Diagnosis Age [...]
--- OUTSIDE RECORDS SUMMARY | 2024-06-20 15:37 | XMS_ITS | Referral Summary ---
Author Organization [place] Address [facility]0 [facility] [place] [address] Care Team Providers Care Agile Qa Tester Name Role Phone Matthias Nunes MD Unavailable [phone] Edwardo Roland Unavailable [phone] [facility]- Primary Care Provider Allergies Active Allergy Reactions [...] Comments Blood Pressure 131/101 11/25/2022 3:41 PM PHYSICS INSTRUCTOR Pulse 84 11/25/2022 3:41 PM PHYSICS INSTRUCTOR Temperature 36.6 ??C (97.9 ??F) 11/25/2022 10:[address] Respiratory Rate 16 11/25/2022 3:41 PM PHYSICS INSTRUCTOR Oxygen Saturation 98% 11/25/2022 3:41 PM PHYSICS INSTRUCTOR Inhaled Oxygen Concentration - - Weight - - Height - - Body Mass Index - - Plan of Treatment Not on file Procedures Procedure Name Priority Date/Time Associated Diagnosis Comments BASIC METABOLIC PANEL STAT 11/25/2022 11:05 AM PHYSICS INSTRUCTOR from Last 3 Months or Most Recently Relevant to Health Maintenance Results * (ABNORMAL) Basic metabolic panel (BMP) (11/25/2022 11:05 AM PHYSICS INSTRUCTOR) Sodium 140 136 - 145 mmol/L 11/25/2022 11:50 AM [facility] Potassium 5.1 3.4 - 5.3 mmol/L 11/25/2022 11:50 AM [facility] Comment:Specimen slightly he molyzed, potassium may be falsely elevated. Chloride 100 98 - 107 mmol/L 11/25/2022 11:50 AM [facility] Carbon Dioxide (CO2) 26 22 - 29 mmol/L 11/25/2022 11:50 AM [facility] Anion Gap 14 7 - 15 mmol/L 11/25/2022 11:50 AM [facility] Urea Nitrogen 11.3 6.0 - 20.0 mg/dL 11/25/2022 11:50 AM [facility] Creatinine 0.49(L) 0.51 - 0.95 mg/dL 11/25/2022 11:50 AM [facility] Calcium 9.9 8.6 - 10.0 mg/dL 11/25/2022 11:50 AM [facility] Glucose 94 70 - 99 mg/dL 11/25/2022 11:50 AM [facility] GFR Estimate >90 >60 mL/min/1.7 3m2 11/25/2022 11:50 AM [facility] Comment:eGFR calculated usin g 2020 CKD-EPI equation. Blood BLOOD SPECIMEN / Unknown Venipuncture / Unknown 11/25/2022 11:05 AM PHYSICS INSTRUCTOR 11/25/2022 11:11 AM PHYSICS INSTRUCTOR Nisha Caputo MD LAB - BLOOD ORDNey BOYKIN [facility] Acute [facility] Lab [address] Lab (1st floor, no room number) [place] [address], [facility] [phone] from Last 3 Months or Most Recently Relevant to Health Maintenance Care Teams Agile Qa Tester Relationship Specialty Start Date End Date [facility]- [address] [place], [place] [id number] PCP - General 11/25/22 Matthias Nunes MD [address] [place], [place] [phone] Orthopedics 11/07/15 Edwardo Roland [address] [place], [place] [phone] Podiatry 11/07/15
--- OUTSIDE RECORDS SUMMARY | 2024-06-20 15:37 | XMS_ITS | Clinical Summary ---
Author Organization [facility] Address [place], [place] [address] Care Team Providers Care Assembler Insulator Name Role Phone Clinic, [facility] Primary Care Pr ovider Allergies No known [...] exam ination at a health care facility Overview (01/20/2014): Pap: 03/2004 Mammo: never Colonoscopy:2008. Recheck 10 years Bone density:unknown Personal history of malignant neoplasm of cervix uteri Overview (12/30/2013): Hx of cervical cancer Immunizations Name Administration [...] 11/22/2010, 06/10/1999 COVID-19 vaccine series (2022- season) 2024 Influenza for age 50-64 06/05/2024 09/24/20 16, [...] - 199 mg/dL 12/15/2014 3:30 PM CDT [facility] TRIGLYCERIDES 152(H) <150 mg/dL 12/15/2014 3:30 PM CDT [facility] HDL CHOLESTEROL 80 >40 mg/dL 5 3:30 PM CDT [facility] NON-HDL CHOLESTEROL 181(H) <145 mg/dl 12/15/2014 3:30 PM CDT [facility] CHOL/HDL RATIO 3.26 <4.50 12/15/2014 3:30 PM CDT [facility] LDL CHOLESTEROL 151(H) <=130 mg/dL 12/15/2014 3:30 PM CDT [facility] PATIENT STATUS FASTING 12/15/2014 3:30 PM CDT [facility] Blood specimen (specimen) BLOOD SPECIMEN / Unknown Venipuncture / Unknown 12/15/2014 2:56 PM CDT 12/15/2014 2:56 PM CDT Lissa Mccollum CHEMISTRY [facility] [address] [place] [address], * XR MAMMO BILAT SCREEN FFDM (12/30/2013 [...] Computer-Aided Detection. ?? COMPARISON FILMS: Yes 09/02/11 [facility] 08/25/08 [facility] FINDINGS: ??Mammographically, the breast tissue is extremely [...] of Computer-Aided Detection. COMPARISON FILMS: Yes 09/02/11 [facility] 08/25/08 [facility] FINDINGS: Mammographically, the breast tissue is extremely [...] Recently Relevant to Health Maintenance Care Teams Assembler Insulator Relationship Specialty Start Date End Date Clinic, [facility] [address] [place] [address] PCP - General 05/16/24
--- NOTE | 2024-06-20 16:00 | CRLHL7_ITS ---
For Patients: As a result of the Century Cures Act, medical imaging exams and procedure reports are released immediately into your electronic medical record. You may view this report before your referring provider. If you have questions, please contact your health care provider. INDICATION: Lung cancer screening. Smoking history. TECHNIQUE: CT chest low dose without contrast. COMPARISON: None. FINDINGS: Pulmonary nodules: None. Lungs and pleural spaces: Unremarkable. Heart and vasculature: Heart size is normal. Thoracic aorta and pulmonary artery are normal in caliber. Lymph nodes and mediastinum: No mediastinal, hilar, or axillary adenopathy. Chest wall: Unremarkable. Upper abdomen: Left adrenal gland nodule measuring 1.1 cm with signal characteristics compatible with adenoma. Bones: Unremarkable for age. IMPRESSION: 1. No suspicious lung lesions. Lung-RADS Category 1: NEGATIVE. Continue annual screening with LDCT in 12 months. 2. Left adrenal gland nodule measuring 1.1 cm with signal characteristics compatible with adenoma. Attention on follow-up. Please note that all CT scans at this facility use dose modulation, iterative reconstruction, and/or weight-based dosing when appropriate to reduce radiation dose to as low as reasonably achievable. Dictated by Nannette Walton MD @ 06/21/2024 11:02:35 AM (Electronically Signed)
== END 2024-06-20 15:35 | disposition home or self-care (01) ==
LOC: CT 15:35
PROVIDERS: PCP Emergency Medicine; Visit Provider Emergency Medicine
DX: Z12.2 Encounter for screening for malignant neoplasm of respiratory organs (principal); F17.210 Nicotine dependence, cigarettes, uncomplicated; E27.9 Disorder of adrenal gland, unspecified
CPT/HCPCS: 71271

== ENCOUNTER 2024-06-27 07:09 | Outpatient (CLI) | payer BC, SELFPAY ==
--- OUTSIDE RECORDS SUMMARY | 2024-06-27 07:12 | XMS_ITS ---
Author Organization [facility] Address [address] [place] [address] Care Team Providers Care Founder & Ceo Name Role Phone Wayne Carrillo Primary Care Provider Encounters Encounter Location Date Provider Diagnosis [facility] [address] [place] [address] 06/10/2024 Wayne Carrillo Plan Of Treatment Next Appt Details Provider Name:Wayne Carrillo, 08/19/2024 01:00:00 PM, [address] [place], [address], Provider Name:Wayne Carrillo, 08/26/2024 01:00:00 PM, [address] [place], [address], Progress Notes * Ngozi DUFFYDOB: [birth year] (59 yo F)Acc No.[id number]:06/10/2024 Patient:?DUFFYNgozi SALINAS Provider:?ABIGAIL Pulido :1965???Age:58 Y???Sex:Female D ate:06/10/2024 Address:[address] [phone] Subjective: * Chief Complaints: * ??? * Medical History:? Objective: * Vitals:? Assessment: Plan: * Treatment: * Billing Information: * Visit Code:? * Procedure Codes:? * Electronic signature of Jerry Carrillo on 06/27/2024 at 07:11 AM CDT Sign off status: Pending * Provider:?ABIGAIL Pulido Date:?03/2024 Generated for Jeffry leon/Sabrina/Diony on:?06/27/2024 07:11 AM CDT
--- OUTSIDE RECORDS SUMMARY | 2024-06-27 07:12 | XMS_ITS ---
Author Organization [facility] Address [address] [place] [address] Care Team Providers Care Piano Case And Bench Assembler Name Role Phone Wayne Carrillo Primary Care Provider [phone] Results Component Value Reference Range Notes Sensitive Estradiol (IH) Reviewed date:05/31/2024 09:19:38 AM Interpretation: Performing Lab: Notes/Report: Access 2 ([id number]), [facility] - Lab SNSE2 73 20 to 433 pg/mL Testosterone, Total (IH) Reviewed date:05/31/2024 09:19:38 AM Interpretation: Performing Lab: Notes/Report: [email or web address] 2 ([id number]) [facility] - Lab Testo 118 0-75 ng/dL FSH (IH) Reviewed date:05/31/2024 09:19:38 AM Interpretation: Performing Lab: Notes/Report: Access 2 ([id number]) [facility] - Lab hFSH 15.6 1.8 to 22.5 mIU/mL REASON FOR VISIT IH PRIME HRT Labs Medications Medication SIG (Take, Route, Fr equency, Duration) Notes Start Date End Date Status CeleXA Active Estrogen Pellets Act ruben Testosterone Pellets Active Vitamin D Active Plaquenil Active Encounters Encounter Location Date Provider Diagnosis [facility] [address] [place] [address] 05/27/2024 Wayne Carrillo Menopausal and femal e climacteric states N95.1 Assessments Encounter Date Diagnosis (ICD Code) Assessment Notes Treat ment Notes Treatment Clinical Notes 05/27/2024 Menopausal and female climacteric states (ICD-10 - N95.1) Plan Of Treatment Next Appt Details Provider Name:Wayne Carrillo, 08/19/2024 01:00:00 PM, [address] [place], [address], Provider Name:Wayne Carrillo, 08/26/2024 01:00:00 PM, [address] [place], [address], Progress Notes * Ngozi DUFFYDOB: [birth year] (58 yo F)Acc No.[id number]:05/27/2024 Patient:?Ngozi DUFFY Provider:?ABIGAIL Pulido :1965???Age:58 Y???Sex:Female D ate:05/27/2024 Address:[address] [phone] Subjective: * Chief Complaints: * ???1. IH [...] 05/31/2024 09:19:34 AM CDT > * Procedure Codes:?81774 VENIP UNCT, ROUTINE* * Images: Billing Information: * Visit Code:? * Procedure Codes:? 01731 VENIPUNCT, ROUTINE*. * Sign off status: Completed true * Provider:?ABIGAIL Pulido Date:?05/06 Generated for Jeffry leon/Sabrina/Diony on:?06/27/2024 07:12 AM CDT
--- OUTSIDE RECORDS SUMMARY | 2024-06-27 07:12 | XMS_ITS | Clinical Summary ---
Author Organization [facility] Address [place], [place] [address] Care Team Providers Care Assistant Accounting Manager Name Role Phone Clinic, [facility] Primary Care Pr ovider Allergies No [...] - 199 mg/dL 12/15/2014 3:30 PM CDT [facility] TRIGLYCERIDES 152(H) <150 mg/dL 12/15/2014 3:30 PM CDT [facility] HDL CHOLESTEROL 80 >40 mg/dL 5 3:30 PM CDT [facility] NON-HDL CHOLESTEROL 181(H) <145 mg/dl 12/15/2014 3:30 PM CDT [facility] CHOL/HDL RATIO 3.26 <4.50 12/15/2014 3:30 PM CDT [facility] LDL CHOLESTEROL 151(H) <=130 mg/dL 12/15/2014 3:30 PM CDT [facility] PATIENT STATUS FASTING 12/15/2014 3:30 PM CDT [facility] Blood specimen (specimen) BLOOD SPECIMEN / Unknown Venipuncture / Unknown 12/15/2014 2:56 PM CDT 12/15/2014 2:56 PM CDT Lissa Mccollum CHEMISTRY [facility] [address] [place] [address], * XR MAMMO BILAT SCREEN FFDM (12/30/2013 [...] Computer-Aided Detection. ?? COMPARISON FILMS: Yes 09/02/11 [facility] 08/25/08 [facility] FINDINGS: ??Mammographically, the breast tissue is extremely [...] of Computer-Aided Detection. COMPARISON FILMS: Yes 09/02/11 [facility] 08/25/08 [facility] FINDINGS: Mammographically, the breast tissue is extremely [...] Recently Relevant to Health Maintenance Care Teams Assistant Accounting Manager Relationship Specialty Start Date End Date Clinic, [facility] [address] [place] [address] PCP - General 05/16/24
--- OUTSIDE RECORDS SUMMARY | 2024-06-27 07:12 | XMS_ITS ---
Author Organization [facility] Address [address] [place] [address] Care Team Providers Care Paper Baler Name Role Phone Wayne Carrillo Primary Care Provider [phone] Allergies Allergen (clinical drug ingredient) Drug/Non Drug Allergy documented on EMR Reaction Allergy Type Onset Date Status lisinopril Lisinopril Swelling Drug Allergy Activ e Substance with 4-leuieao-2-methylgluta ryl-coenzyme A reductase inhibitor mechanism of action (substance) Statins Swelling Drug Allergy Active REASON FOR VISIT HRT Insert- left side, Mammo: 12/11/23, BC: Hysterectomy, LABS: estradiol 73, fsh 15.6, testosterone 118, KDS,SKI TOP TRIMMER Medications Medication SIG (Take, Route, Fr equency, [...] point) Points 1 Interpretation Negative Vital Signs Blood pressure systolic 130 mm Hg 06/03/20 24 Blood pressure diastolic 74 mm Hg 024 Height 70 in 06/03/2024 Weight 168.9 lbs 06/03/2024 BMI 24.23 kg/m2 06/03/2024 Encounters Encounter Location Date Provider Diagnosis [facility] [address] [place] [address] 06/03/2024 Wayne Gerardo Menopausal and femal e [...] Reason: Provider Name:Wayne Carrillo, 08/19/2024 01:00:00 PM, [address] [place], [address], Provider Name:Wayne Simónanna, 08/26/2024 01:00:00 PM, [address] [place], [address], Progress Notes * Ngozi DUFFYDOB: [birth year] (58 yo F)Acc No.[id number]:06/03/2024 Patient:?Ngozi DUFFY Provider:?ABIGAIL Pulido :1965???Age:58 Y???Sex:Female D ate:06/03/2024 Address:[facility] [id number] Subjective: * Chief Complaints: * ???1. HRT Insert- left side. 2. Mammo: 12/11/23. 3. BC: Hysterectomy. 4. LABS: estradiol 73, fsh 15.6, testosterone 118. 5. KDS,SKI TOP TRIMMER. * HPI: ???*General:? Ngozi is a 58 [...] negative. * Medical History:?Arthritis, Cancer, HTN. * Cast Shell Grinder History:?Date of Last Period:?Hysterectomy.? Control: ?Hysterectomy.?Sexual Activity?Currently [...] degrees SOTTOPELLE LOT# documented below due to [employer] website being down E: 18mg lot #[id number] T: 87.5mg lot #[id number]. Assessment: * Assessment: 1.?Menopausal and female cli macteric states - N95.1 (Primary)??? Plan: * Treatment: * Procedure Codes:?1012 Adrianezuñiga Membership No Charge Fee * Follow Up:?3 Months * Images: Billing Information: * Visit Code:? * Procedure Codes:? 1012 mikey Membership No Charge Fee. * Sign off status: Completed true * Provider:?ABIGAIL Pulido Date:?05/07 Generated for Jeffry leon/Sabrina/Diony on:?06/27/2024 07:11 AM CDT History and Physical Notes * Examination Category Sub-Category Detail Notes *General Examination GENERAL APPEARANCE: in no a cute distress, well developed, well nourished
--- OUTSIDE RECORDS SUMMARY | 2024-06-27 07:12 | XMS_ITS | Continuity of Care Document ---
Author Organization [facility] Address [address] [place] [address] Phone Care Team Providers Care Associate Professor Of Education Name Role Phone TCSC, Miscellaneous Unavailable Unavailable Advance Directives Directive Yes / No Effective Date File Name No Information Encounters Encounter Description Practice Location Reason(s) For Visit Diagnoses Date Provider Providers Copied on Encounter [facility], [address], [place], [address], [place] tel:[phone] [facility] [place] No Information [facility] Miscellan eous. [address], [address], [place], [place], [id number] , [place]. tel:[phone] Family History Family Member Type Diagnosis Age At Onset No Information Payers Payer name Insurance type Covered constitution party ID Authoriza tion(s) No Information Social [...]
--- OUTSIDE RECORDS SUMMARY | 2024-06-27 07:12 | XMS_ITS | Patient Health Record ---
Author Organization [facility] Address [address] [place] [address] Care Team Providers Care C Java Developer Name Role Phone Wayne Carrillo Primary Care Provider Allergies Allergen (clinical drug ingredient) Drug/Non Drug Allergy documented on EMR Reaction Allergy Type Onset Date Status lisinopril Lisinopril Swelling Drug Allergy Activ e Substance with 8-eymknwv-1-methylgluta ryl-coenzyme A reductase inhibitor mechanism of action (substance) Statins Swelling Drug Allergy Active Results Component Value Reference Range Notes FSH (IH) Reviewed date:05/31/2024 09:19:38 AM Interpretation: Performing Lab: Notes/Report: Access 2 ([id number]), [facility] - Lab Testosterone, Total (IH) Reviewed date:05/31/2024 09:19:38 AM Interpretation: Performing Lab: Notes/Report: Access 2 ([id number]), [facility] - Lab Sensitive Estradiol (IH) Reviewed date:05/31/2024 09:19:38 AM Interpretation: Performing Lab: Notes/Report: Access 2 ([id number]), [facility] - Lab Sensitive Estradiol (IH) Reviewed date:03/15/2024 01:07:12 PM Interpretation: Performing Lab: Notes/Report: Access 2 ([id number]), [facility] - [facility] Testosterone, Total (IH) Reviewed date:03/15/2024 01:07:12 PM Interpretation: Performing Lab: Notes/Report: Access 2 ([id number]), [facility] FSH (IH) Reviewed date:03/15/2024 01:07:12 PM Interpretation: Performing Lab: Notes/Report: Access 2 ([id number]), [facility] Sensitive Estradiol (IH) Reviewed date:09/21/2023 04:28:21 PM Interpretation: Performing Lab: Notes/Report: Access 2 ([id number]), Access 2 [facility] Testosterone, Total (IH) Reviewed date:09/21/2023 04:28:21 PM Interpretation: Performing Lab: Notes/Report: Access 2 ([id number]), Access 2 [facility] FSH (IH) Reviewed date:09/21/2023 04:28:21 PM Interpretation: Performing Lab: Notes/Report: Access 2 ([id number]), Access 2 [facility] Sensitive Estradiol (IH) Reviewed date:12/15/2023 04:25:42 PM Interpretation: Performing Lab: Notes/Report: Access 2 ([id number]), Access 2 [facility] Testosterone, Total (IH) Reviewed date:12/15/2023 04:25:42 PM Interpretation: Performing Lab: Notes/Report: Access 2 ([id number]), Access 2 [facility] FSH (IH) Reviewed date:12/15/2023 04:25:42 PM Interpretation: Performing Lab: Notes/Report: Access 2 ([id number]), Access 2 [facility] Reason For Referral No [...] Problem Status W/U Status Risk Notes Problem 436176277 Menopausal and female climacteric states (N95.1) Active confirmed Problem 71162485 Chronic hypertension (I10) Active confirmed Problem Female climacteric state (467637234) Female climacteric state (N95.1) Active confirmed Problem [id number] Climacteric (N95.1) Active confirmed Problem Menopause (186468136) 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 Vital Signs Blood pressure diastolic 74 mm Hg 06/03/2024 Height 70 in 06/03/2024 Blood pressure systolic 130 mm Hg 06/03/2024 Weight 168.9 lbs 06/03/2024 BMI 24.23 kg/m2 06/03/2024 Encounters Encounter Location Date Provider Diagnosis [facility] [address] [place] [address] 12/21/2023 Wayne Carrillo Menopausal and femal e climacteric states N95.1 [facility] [address] [place] [address] 03/18/2024 Wayne Carrillo Menopausal and femal e climacteric states N95.1 [facility] [address] [place] [address] 06/03/2024 Wayne Carrillo Menopausal and femal e climacteric states N95.1 [facility] [address] [place] [address] 09/21/2023 Wayne Carrillo Menopausal and femal e climacteric states N95.1 [facility] [address] [place] [address] 09/14/2023 Wayne Carrillo Menopausal and femal e climacteric states N95.1 [facility] [address] [place] [address] 12/14/2023 Wayne Carrillo Menopausal and femal e climacteric states N95.1 [facility] [address] [place] [address] 03/11/2024 Wayne Carrillo Menopausal and femal e climacteric states N95.1 [facility] [address] [place] [address] 05/27/2024 Wayne Carrillo Menopausal and femal e climacteric states N95.[address] [place], [place] [id number] 11/21/2023 Wayne Carrillo Assessments Encounter Date Diagnosis [...] her next insertion, pt. typically completes at [facility] -Report any signs of infection or pellet [...] Details Provider Name:Wayne Carrillo, 08/19/2024 01:00:00 PM, [address] [place], [address], Provider Name:Wayne Carrillo, 08/26/2024 01:00:00 PM, [address], [place], [address], Insurance Providers Payer Name Payer Address Payer Phone Subscriber Number Group Number Insured Name Patient Relationship to Insured Coverage Start Date Coverage End Date BCBS - (Client Bill) [address] [place] [address] [id number] Ngozi Paez Self - patient is the insured Medical (General) History Medical History History ICD Code Arthritis Cancer HTN Surgical History Surgery Date(Month/Year) Partial hysterectomy 1993 Ankle fusion 02/2016
--- OUTSIDE RECORDS SUMMARY | 2024-06-27 07:13 | XMS_ITS | Clinical Summary ---
Author Organization [place] Address [facility] [place] [address] Care Team Providers Care Vault Installer Name Role Phone Matthias Nunes MD Unavailable [phone] Edwardo Roland Unavailable [phone] [facility]- Primary Care Provider Allergies Active Allergy [...] Comments Blood Pressure 131/101 11/25/2022 3:41 PM TITLE MANAGER Pulse 84 11/25/2022 3:41 PM TITLE MANAGER Temperature 36.6 ??C (97.9 ??F) 11/25/2022 10:[address] Respiratory Rate 16 11/25/2022 3:41 PM TITLE MANAGER Oxygen Saturation 98% 11/25/2022 3:41 PM TITLE MANAGER Inhaled Oxygen Concentration - - Weight - [...] 06/04/2020 PHQ-2 (once per calendar year) 2023 BMP 11/25/2023 11/25/2022 COVID-19 Vaccine ( season) 2024 10/17/2021, 01/12/2021, [...] BASIC METABOLIC PANEL STAT 11/25/2022 11:05 AM TITLE MANAGER from Last 3 Months or Most Recently Relevant to Health Maintenance Results * (ABNORMAL) Basic metabolic panel (BMP) (11/25/2022 11:05 AM TITLE MANAGER) Sodium 140 136 - 145 mmol/L 11/25/2022 11:50 AM TITLE MANAGER [facility] Potassium 5.1 3.4 - 5.3 mmol/L 11/25/2022 11:[address] [facility] Comment:Specimen slightly he molyzed, potassium may be falsely elevated. Chloride 100 98 - 107 mmol/L 11/25/2022 11:[address] [facility] Carbon Dioxide (CO2) 26 22 - 29 mmol/L 11/25/2022 11:[address] [facility] Anion Gap 14 7 - 15 mmol/L 11/25/2022 11:[address] [facility] Urea Nitrogen 11.3 6.0 - 20.0 mg/dL 11/25/2022 11:[address] [facility] Creatinine 0.49(L) 0.51 - 0.95 mg/dL 11/25/2022 11:[address] [facility] Calcium 9.9 8.6 - 10.0 mg/dL 11/25/2022 11:[address] [facility] Glucose 94 70 - 99 mg/dL 11/25/2022 11:[address] [facility] GFR Estimate >90 >60 mL/min/1.7 3m2 11/25/2022 11:[address] [facility] Comment:eGFR calculated usin g 2020 CKD-EPI equation. Blood BLOOD SPECIMEN / Unknown Venipuncture / Unknown 11/25/2022 11:05 AM TITLE MANAGER 11/25/2022 11:11 AM [facility] Nisha Caputo MD LAB - BLOOD [facility] Organization Address City/State/ZIP Co de Phone Number LABORATORY [facility] Acute Care Lab [address] Lab (1st floor, no room number) [place] [address], [facility] [phone] from Last 3 Months or Most Recently Relevant to Health Maintenance Care Teams Vault Installer Relationship Specialty Start Date End Date [facility]- [address] [place] [address] PCP - General 11/25/22 Matthias Nunes MD [address] [place] [address] Orthopedics 11/07/15 Edwardo Roland [address] [place] [address] Podiatry 11/07/15
--- OUTSIDE RECORDS SUMMARY | 2024-06-27 07:13 | XMS_ITS | Referral Summary ---
Author Organization [place] Address [facility] [place] [address] Care Team Providers Care Kayaking Instructor Name Role Phone Matthias Nunes MD Unavailable [phone] Edwardo Roland Unavailable [phone] [facility]- Primary Care Provider Allergies Active [...] Comments Blood Pressure 131/101 11/25/2022 3:41 PM HAND PACKAGER Pulse 84 11/25/2022 3:41 PM HAND PACKAGER Temperature 36.6 ??C (97.9 ??F) 11/25/2022 10:[address] Respiratory Rate 16 11/25/2022 3:41 PM HAND PACKAGER Oxygen Saturation 98% 11/25/2022 3:41 PM HAND PACKAGER Inhaled Oxygen Concentration - - Weight - - Height - - Body Mass Index - - Plan of Treatment Not on file Procedures Procedure Name Priority Date/Time Associated Diagnosis Comments BASIC METABOLIC PANEL STAT 11/25/2022 11:05 AM HAND PACKAGER from Last 3 Months or Most Recently Relevant to Health Maintenance Results * (ABNORMAL) Basic metabolic panel (BMP) (11/25/2022 11:05 AM HAND PACKAGER) Sodium 140 136 - 145 mmol/L 11/25/2022 11:50 AM [facility] Potassium 5.1 3.4 - 5.3 mmol/L 11/25/2022 11:50 AM [facility] Comment:Specimen slightly he molyzed, potassium may be falsely elevated. Chloride 100 98 - 107 mmol/L 11/25/2022 11:50 AM [facility] Carbon Dioxide (CO2) 26 22 - 29 mmol/L 11/25/2022 11:50 AM [facility] Anion Gap 14 7 - 15 mmol/L 11/25/2022 11:50 AM [facility] Urea Nitrogen 11.3 6.0 - 20.0 mg/dL 11/25/2022 11:50 AM [facility] Creatinine 0.49(L) 0.51 - 0.95 mg/dL 11/25/2022 11:50 AM [facility] Calcium 9.9 8.6 - 10.0 mg/dL 11/25/2022 11:50 AM [facility] Glucose 94 70 - 99 mg/dL 11/25/2022 11:50 AM [facility] GFR Estimate >90 >60 mL/min/1.7 3m2 11/25/2022 11:50 AM [facility] Comment:eGFR calculated usin g 2020 CKD-EPI equation. Blood BLOOD SPECIMEN / Unknown Venipuncture / Unknown 11/25/2022 11:05 AM HAND PACKAGER 11/25/2022 11:11 AM HAND PACKAGER Nisha Caputo MD LAB - BLOOD ORDNey BOYKIN [facility] Acute Care Lab [address] Lab (1st floor, no room number) [place] [address], [facility] [phone] from Last 3 Months or Most Recently Relevant to Health Maintenance Care Teams Kayaking Instructor Relationship Specialty Start Date End Date [facility]- [address] [place], [place] [phone] PCP - General 11/25/22 Matthias Nunes MD [address] [place], [place] [address] Orthopedics 11/07/15 Edwardo Roland [address] [place], [place] [phone] Podiatry 11/07/15
--- NOTE | 2024-06-27 09:09 | W.ANESCHARGE ---
Anesthesia Charges Start Date/Time Anesthesia Start Date: 06/27/24 Anesthesia Start Time: 08:13 Stop Date/Time Anesthesia Stop Date: 06/27/24 Anesthesia Stop Time: 09:05
--- NOTE | 2024-06-27 12:05 | W.ANESCHARGE ---
Anesthesia Charges Start Date/Time Anesthesia Start Date: 06/27/24 Anesthesia Start Time: 08:13 Stop Date/Time Anesthesia Stop Date: 06/27/24 Anesthesia Stop Time: 09:05
== END 2024-06-27 07:10 | disposition home or self-care (01) ==
LOC: OP CLINIC 07:10
PROVIDERS: PCP Emergency Medicine; Visit Provider Surgery
DX: Z12.11 Encounter for screening for malignant neoplasm of colon (principal); D12.2 Benign neoplasm of ascending colon; D12.3 Benign neoplasm of transverse colon; D12.5 Benign neoplasm of sigmoid colon; K57.30 Diverticulosis of large intestine without perforation or abscess without bleeding; Z86.010 Personal history of colon polyps
CPT/HCPCS: 00811; 45385; 88305; J2704

== ENCOUNTER 2024-08-18 15:24 | Outpatient (CLI) | payer BC, SELFPAY ==
--- OUTSIDE RECORDS SUMMARY | 2024-08-18 15:27 | XMS_ITS | Clinical Summary ---
Author Organization [place] Address [address] [place] [address]. [place] [address] Care Team Providers Care Track Vehicle Repairer Name Role Phone Matthias Nunes MD Unavailable [phone] Edwardo Roland Unavailable [phone] [facility]- Primary Care Provider Allergies Active Allergy Reactions Criticality Noted Date Comments Seasonal Allergies 12/11/2015 Sulfa Antibiotics 11/25/2022 Medications venlafaxine (EFFEXOR-XR) 150 MG 24 hr capsule Act ruben hydrochlorothiazid e (HYDRODIURIL) 25 MG tablet 05/05/2014 Active estradiol (ESTRACE) 2 MG tablet 11/05/2014 Active Social History Tobacco Use Types Packs/Day Years Used Date Smoking Tobacco: Never Assessed Adolescent Education Answer Date Record ed Getting School Help Needed Not on file 07/19 Comments Unknown Sex and Gender Information Value Date Recorded Sex Assigned at Not on file Legal Sex Female 3:27 AM TRAINING TECHNICIAN Gender Identity Not on file Sexual Orientation Not on file Last Filed Vital Signs Vital Sign Reading Time Taken Comments Blood Pressure 131/101 11/25/2022 3:41 PM TRAINING TECHNICIAN Pulse 84 11/25/2022 3:41 PM TRAINING TECHNICIAN Temperature 36.6 ??C (97.9 ??F) 11/25/2022 10:[address] Respiratory Rate 16 11/25/2022 3:41 PM TRAINING TECHNICIAN Oxygen Saturation 98% 11/25/2022 3:41 PM TRAINING TECHNICIAN Inhaled Oxygen Concentration - - Weight - [...] 2023 BMP 11/25/2023 11/25/2022 COVID-19 Vaccine ( - season) 2024 10/17/2021, 01/12/2021, 12/22/2020 INFLUENZA VACCINE (#1) 2024 9, 11/24/2017, 09/24/2016, Additional history exists GLUCOSE 11/25/2025 11/25/2022 DTAP/TDAP/TD IMMUNIZATION (3 - Td or Tdap) 10/28/2030 10/28/2020, 11/22/2010, 06/10/1999 RSV VACCINE (1 - 1-dose 75+ series) 2041 ZOSTER IMMUNIZATION Completed 11/04/2019, 9 HPV IMMUNIZATION [...] BASIC METABOLIC PANEL STAT 11/25/2022 11:05 AM TRAINING TECHNICIAN from Last 3 Months or Most Recently Relevant to Health Maintenance Results * (ABNORMAL) Basic metabolic panel (BMP) (11/25/2022 11:05 AM TRAINING TECHNICIAN) Sodium 140 136 - 145 mmol/L 11/25/2022 11:50 AM [facility] Potassium 5.1 3.4 - 5.3 mmol/L 11/25/2022 11:50 AM [facility] Comment:Specimen slightly he molyzed, potassium may be falsely elevated. Chloride 100 98 - 107 mmol/L 11/25/2022 11:50 AM [facility] Carbon Dioxide (CO2) 26 22 - 29 mmol/L 11/25/2022 11:50 AM [facility] Anion Gap 14 7 - 15 mmol/L 11/25/2022 11:50 AM [facility] Urea Nitrogen 11.3 6.0 - 20.0 mg/dL 11/25/2022 11:50 AM [facility] Creatinine 0.49(L) 0.51 - 0.95 mg/dL 11/25/2022 11:50 AM [facility] Calcium 9.9 8.6 - 10.0 mg/dL 11/25/2022 11:50 AM [facility] Glucose 94 70 - 99 mg/dL 11/25/2022 11:50 AM [facility] GFR Estimate >90 >60 mL/min/1.7 3m2 11/25/2022 11:50 AM [facility] Comment:eGFR calculated usin g 2020 CKD-EPI equation. Blood BLOOD SPECIMEN / Unknown Venipuncture / Unknown 11/25/2022 11:05 AM TRAINING TECHNICIAN 11/25/2022 11:11 AM TRAINING TECHNICIAN Nisha Caputo MD LAB - BLOOD ORDERABLES F inal Result [facility] Acute Care Lab [address] Lab (1st floor, no room number) [place] [address], [facility] [phone] from Last 3 Months or Most Recently Relevant to Health Maintenance Insurance [place] [facility] Care Teams Track Vehicle Repairer Relationship Specialty Start Date End Date [facility]- [address] [place] [address] PCP - General 11/25/22 Matthias Nunes MD [address] [place] [phone] Orthopedics 11/07/15 Edwardo Roland [address] [place], [place] [phone] Podiatry 11/07/15
--- OUTSIDE RECORDS SUMMARY | 2024-08-18 15:27 | XMS_ITS | Continuity of Care Document ---
Author Organization [facility] Address [address] [place] [address] Phone Care Team Providers Care Tmd Teacher Name Role Phone TCSC, Miscellaneous Unavailable Unavailable Advance Directives Directive Yes / No Effective Date File Name No Information Encounters Encounter Description Practice Location Reason(s) For Visit Diagnoses Date Provider Providers Copied on Encounter [facility], [address], [place], [address], [place] tel:[phone] [facility] [place] No Information [facility] Miscellan eous. [address], [address], [place], [place], [address] , [place]. tel:[phone] Family History Family Member Type Diagnosis Age At Onset No Information Payers Payer name Insurance type Covered green party ID Authoriza tion(s) No Information Social [...]
--- OUTSIDE RECORDS SUMMARY | 2024-08-18 15:27 | XMS_ITS | Clinical Summary ---
Author Organization [facility] Address [place], [place] [address] Care Team Providers Care Inspector Floor Name Role Phone Clinic, [facility] Primary Care Pr ovider Allergies No known [...] uteri Overview (12/30/2013): Hx of cervical cancer Encounters Date Type Department Care Team Description 07/01/2024 Transcribe Orders [facility] [address] [place] [address] Suzan Forte MD 06/27/2024 Lab Requisition [facility] [phone] Suzan Forte MD from Last 3 Months Immunizations Name Administration Dates Next Due AMB [...] 06/03/2018 3:35 PM CDT Plan of Treatment Upcoming Encounters Date Type Department Care Team (Late st Contact Info) Description 09/13/2024 1:30 PM TILE MECHANIC HELPER Telemedicine [facility] [address] [place] [address] Mag Mckeon, [place], [facility] [address] [place] [address] Health Maintenance Due Date Last Done Comments [...] booster 11/22/2020 11/22/2010, 06/10/1999 COVID-19 vaccine series ( season) 2024 Influenza for age 50-64 06/05/2024 09/24/20 16, 07/31/2015, 07/31/2015, Additional history exists Tdap Completed 11/22/2010 Pneumococcal series for age 6-64 Aged Out No longer eligible based on patient's age to complete this topic Procedures Procedure Name Priority Date/Time Associated Diagnosis Comments LAB TRACKING EVENT Routine 06/27/2024 8: 30 AM CDT PATH TISSUE EXAM Routine 06/27/2024 8:30 AM CDT LIPID PANEL W REFLEX MEASURED LDL Routine 12/15/2014 2:56 PM CDT Hyperlipidemia XR MAMMO BILAT SCREEN FFDM (IA) Routine 12/30/2013 8:58 AM CDT Other screening mammogram from Last 3 Months or Most Recently Relevant to Health Maintenance Results * LAB TRACKING EVENT (06/27/2024 8:30 AM CDT) Other (Other) Client Collect / Unknown 06/27/2024 8:30 AM CDT 06/27/2024 10:26 PM CDT Suzan Forte MD LAB BILL ONLY [facility] [address] [place] [address], * PATH TISSUE EXAM (06/27/2024 8:30 AM CDT) Case Report Pathology Report ?Case: [id number] ? Authorizing Provider: ??Suzan Forte MD ??Collected: ? 06/27/2024 0830 ? Ordering Location: ? [facility] ?Received: ?06/28/2024 0808 ? Pathologist: ? Yoni Mccrary, ? MD ? Specimens: ?? A) - Ascending Colon Biopsy ? B) - Hepatic Flexure Biopsy ? C) - Transverse Colon Biopsy ? D) - Splenic Flexure Polyp ? E) - Sigmoid Biopsy ? 06/29/2024 3:20 PM CDT [facility] Final Diagnosis A) COLON, ASCENDING, POLYPECTOMY: 1. Sessile serrated adenoma 2. Negative for overt dysplasia 3. Per the colonoscopy report: ?? a. Polyp size: 6 mm ?? b. Resection: Complete ?? c. Retrieval: Complete B) COLON, HEPATIC FLEXURE, POLYPECTOMY: 1. Sessile serrated adenoma 2. Negative for overt dysplasia 3. Per the colonoscopy report: ?? a. Polyp size: 6 mm ?? b. Resection: Complete ?? c. Retrieval: Complete C) COLON, TRANSVERSE, BIOPSY: 1. Normal colonic mucosa; a lymphoid aggregate is present (clinically,1 polyp) 2. Negative for serrated change, dysplasia, and malignancy D) COLON, SPLENIC FLEXURE, POLYPECTOMIES: 1. Tubular adenoma (1) and sessile serrated adenomas (2) 2. Negative for high grade dysplasia 3. Per the colonoscopy report: ?? a. Polyp sizes: 5 mm - 8 mm ?? b. Resection: Complete ?? c. Retrieval: Complete E) COLON, SIGMOID, POLYPECTOMIES: 1. Tubular adenoma (1) and sessile serrated adenomas (2) 2. Negative for high grade dysplasia 3. Per the colonoscopy report: ?? a. Polyp sizes: 6 mm - 8 mm ?? b. Resection: Complete ?? c. Retrieval: Complete 06/29/2024 3:20 PM CDT [facility] Clinical Information History of colon polyps 06/29/2024 3:20 PM CDT [facility] Gross Description A) Received in formalin are 7 haddad mucosal fragments ranging from 1 mm to 8 mm in greatest dimension, which are entirely submitted in one cassette. It is labeled with the patient's name and designated ascending colon polyp. B) Received in formalin are 9 haddad mucosal fragments ranging from 1 mm to 12 mm in greatest dimension, which are entirely submitted in one cassette. It is labeled with the patient's name and designated hepatic flexure polyp. C) Received in formalin is a haddad mucosal fragment measuring 11 mm in greatest dimension, which is entirely submitted in one cassette. It is labeled with the patient's name and designated transverse colon polyp. D) Received in formalin are 6 haddad mucosal fragments ranging from 1 mm to 10 mm in greatest dimension, which are entirely submitted in one cassette. It is labeled with the patient's name and designated splenic flexure multiple polyps. E) Received in formalin are select 3 haddad mucosal fragments ranging from 4 mm to 6 mm in greatest dimension, which are entirely submitted in one cassette. It is labeled with the patient's name and designated sigmoid colon multiple polyps. Flavia Ricketts 06/28/2024 9:08 AM 06/29/2024 3:20 PM CDT [facility] Microscopic Description The final diagnosis is based on microscopic examination of appropriate sections of all specimens. 06/29/2024 3:20 PM CDT [facility] Additional Information Interpreted at [facility], Central Laboratory - [address] [facility] [address], [place] [address] 06/29/2024 3:20 PM CDT [facility] Other (Ascending Colon Biopsy) 06/27/2024 8:30 AM CDT 06/28/2024 8:08 AM CDT Specimen (specimen) (Hepatic Flexure Biopsy) 06/27/2024 8:30 AM CDT 06/28/2024 8:08 AM CDT Specimen (specimen) (Transverse Colon Biopsy) 06/27/2024 8:30 AM CDT 06/28/2024 8:08 AM CDT Specimen (specimen) (Splenic Flexure Polyp) 06/27/2024 8:30 AM CDT 06/28/2024 8:08 AM CDT Specimen (specimen) (Sigmoid Biopsy) 06/27/2024 8:30 AM CDT 06/28/2024 8:08 AM CDT Suzan Forte MD PATHOLOGY/[facility] [address] [place] [address], * (ABNORMAL) LIPID PANEL W REFLEX MEASURED LDL (12/15/2014 2:56 PM CDT) CHOLESTEROL,TOTAL 261(H) 100 - 199 mg/dL 12/15/2014 3:[address] [facility] TRIGLYCERIDES 152(H) <150 mg/dL 12/15/2014 3:[address] [facility] HDL CHOLESTEROL 80 >40 mg/dL 5 3:[address] [facility] NON-HDL CHOLESTEROL 181(H) <145 mg/dl 12/15/2014 3:[address] [facility] CHOL/HDL RATIO 3.26 <4.50 12/15/2014 3:[address] [facility] LDL CHOLESTEROL 151(H) <=130 mg/dL 12/15/2014 3:[address] [facility] PATIENT STATUS FASTING 12/15/2014 3:[address] [facility] Blood specimen (specimen) BLOOD SPECIMEN / Unknown Venipuncture / Unknown 12/15/2014 2:56 PM CDT 12/15/2014 2:56 PM CDT Lissa Mccollum CHEMISTRY Performing Organization Address City/State/[facility] Co de Phone Number [facility] [address] [place] [address], * XR MAMMO BILAT SCREEN FFDM (12/30/2013 [...] Computer-Aided Detection. ?? COMPARISON FILMS: Yes 09/02/11 [facility] 08/25/08 [facility] FINDINGS: ??Mammographically, the breast tissue is extremely [...] of Computer-Aided Detection. COMPARISON FILMS: Yes 09/02/11 [facility] 08/25/08 [facility] FINDINGS: Mammographically, the breast tissue is extremely [...] Recently Relevant to Health Maintenance Care Teams Inspector Floor Relationship Specialty Start Date End Date Clinic, [facility] [address] [place] [address] PCP - General 05/16/24
--- OUTSIDE RECORDS SUMMARY | 2024-08-18 15:27 | XMS_ITS | Referral Summary ---
Author Organization [facility] Address [address] [place] [address]. [place] [address] Care Team Providers Care Lamp Tester And Inspector Name Role Phone Matthias Nunes MD Unavailable [phone] Edwardo Roland Unavailable [phone] [facility]- Primary Care Provider Allergies [...] on file Legal Sex Female 3:27 AM REMOTE MORTGAGE UNDERWRITER Gender Identity Not on file Sexual Orientation Not on file Last Filed Vital Signs Vital Sign Reading Time Taken Comments Blood Pressure 131/101 11/25/2022 3:41 PM REMOTE MORTGAGE UNDERWRITER Pulse 84 11/25/2022 3:41 PM REMOTE MORTGAGE UNDERWRITER Temperature 36.6 ??C (97.9 ??F) 11/25/2022 10:[address] Respiratory Rate 16 11/25/2022 3:41 PM REMOTE MORTGAGE UNDERWRITER Oxygen Saturation 98% 11/25/2022 3:41 PM REMOTE MORTGAGE UNDERWRITER Inhaled Oxygen Concentration - - Weight - - Height - - Body Mass Index - - Plan of Treatment Not on file Procedures Procedure Name Priority Date/Time Associated Diagnosis Comments BASIC METABOLIC PANEL STAT 11/25/2022 11:05 AM REMOTE MORTGAGE UNDERWRITER from Last 3 Months or Most Recently Relevant to Health Maintenance Results * (ABNORMAL) Basic metabolic panel (BMP) (11/25/2022 11:05 AM REMOTE MORTGAGE UNDERWRITER) Sodium 140 136 - 145 mmol/L 11/25/2022 [...] [facility] Comment:eGFR calculated usin 2020 CKD-EPI equation. Blood BLOOD SPECIMEN / Unknown Venipuncture / Unknown 11/25/2022 11:05 AM REMOTE MORTGAGE UNDERWRITER 11/25/2022 11:11 AM REMOTE MORTGAGE UNDERWRITER Nisha Caputo MD LAB - BLOOD ORDERABLES F inal Result LABORATORY [facility] [address] Lab (1st floor, no room number) [place] [address], [facility] [phone] from Last 3 Months or Most Recently Relevant to Health Maintenance [place] Care Teams Lamp Tester And Inspector Relationship Specialty Start Date End Date [facility]- [address] [place] [address] PCP - General 11/25/22 Matthias Nunes MD [address] [place] [address] [phone] Orthopedics 11/07/15 Edwardo Roland [address] [place] [address] [phone] Podiatry 11/07/15
== END 2024-08-18 15:25 | disposition home or self-care (01) ==
LOC: LKVREF 15:24
PROVIDERS: PCP Emergency Medicine; Visit Provider Emergency Medicine
DX: Z01.818 Encounter for other preprocedural examination (principal); I10 Essential (primary) hypertension
CPT/HCPCS: 80048

== ENCOUNTER 2024-08-22 07:21 | Day surgery (SDC) | payer BC, SELFPAY ==
[2024-08-22] VITALS (17 sets, daily range): BP systolic 100–118; BP diastolic 62–86; PULSE 64–84; RESP 12–16; TEMP 36.4–37.1; O2SAT 91–96; BMI 24.7
[2024-08-22] MEDS: EPINEPHrine 1 MG in SODIUM CHLORIDE IRRIG SOLUTION 3,000 ML 9003 MG IRRIGATION ×9 (07:00→12:02)
--- OUTSIDE RECORDS SUMMARY | 2024-08-22 07:44 | XMS_ITS | Referral Summary ---
Author Organization [facility] Address [address] [place] [address]. [place] [address] Care Team Providers Care Emergency Dispatch Operator Name Role Phone Matthias Nunes MD Unavailable [phone] Edwardo Roland Unavailable [phone] [facility]- Primary Care Provider Allergies Active [...] on file Legal Sex Female 3:27 AM SUPERINTENDENT COMPRESSOR STATIONS Gender Identity Not on file Sexual Orientation Not on file Last Filed Vital Signs Vital Sign Reading Time Taken Comments Blood Pressure 131/101 11/25/2022 3:41 PM SUPERINTENDENT COMPRESSOR STATIONS Pulse 84 11/25/2022 3:41 PM SUPERINTENDENT COMPRESSOR STATIONS Temperature 36.6 ??C (97.9 ??F) 11/25/2022 10:[address] Respiratory Rate 16 11/25/2022 3:41 PM SUPERINTENDENT COMPRESSOR STATIONS Oxygen Saturation 98% 11/25/2022 3:41 PM SUPERINTENDENT COMPRESSOR STATIONS Inhaled Oxygen Concentration - - Weight - - Height - - Body Mass Index - - Plan of Treatment Not on file Procedures Procedure Name Priority Date/Time Associated Diagnosis Comments BASIC METABOLIC PANEL STAT 11/25/2022 11:05 AM SUPERINTENDENT COMPRESSOR STATIONS from Last 3 Months or Most Recently Relevant to Health Maintenance Results * (ABNORMAL) Basic metabolic panel (BMP) (11/25/2022 11:05 AM SUPERINTENDENT COMPRESSOR STATIONS) Sodium 140 136 - 145 mmol/L 11/25/2022 11:50 AM [facility] Potassium 5.1 3.4 - 5.3 mmol/L 11/25/2022 11:50 AM [facility] Comment:Specimen slightly he molyzed, potassium may be falsely elevated. Chloride 100 98 - 107 mmol/L 11/25/2022 11:50 AM [facility] Carbon Dioxide (CO2) 26 22 - 29 mmol/L 11/25/2022 11:50 AM [facility] Anion Gap 14 7 - 15 mmol/L 11/25/2022 11:50 AM [facility] Urea Nitrogen 11.3 6.0 - 20.0 mg/dL 11/25/2022 11:50 AM [facility] Creatinine 0.49(L) 0.51 - 0.95 mg/dL 11/25/2022 11:50 AM [facility] Calcium 9.9 8.6 - 10.0 mg/dL 11/25/2022 11:50 AM [facility] Glucose 94 70 - 99 mg/dL 11/25/2022 11:50 AM [facility] GFR Estimate >90 >60 mL/min/1.7 3m2 11/25/2022 11:50 AM [facility] Comment:eGFR calculated usin 2020 CKD-EPI equation. Blood BLOOD SPECIMEN / Unknown Venipuncture / Unknown 11/25/2022 11:05 AM SUPERINTENDENT COMPRESSOR STATIONS 11/25/2022 11:11 AM SUPERINTENDENT COMPRESSOR STATIONS Nisha Caputo MD LAB - BLOOD ORDERABLES F inal Result LABORATORY [facility] [address] Lab (1st floor, no room number) [place] [address], [facility] [phone] from Last 3 Months or Most Recently Relevant to Health Maintenance [place] Care Teams Emergency Dispatch Operator Relationship Specialty Start Date End Date [facility]- [address] [place] [address] PCP - General 11/25/22 Matthias Nunes MD [address] [place] [id number] Orthopedics 11/07/15 Edwardo Roland [address] [place] [address] [phone] Podiatry 11/07/15
--- OUTSIDE RECORDS SUMMARY | 2024-08-22 07:44 | XMS_ITS ---
Author Organization [facility] Address [address] [place] [address] Care Team Providers Care Wind Field Service Manager Name Role Phone Wayne Carrillo Primary Care Provider [phone] Stephanie Ledbetter Unavailable [phone] Allergies Allergen (clinical drug ingredient) Drug/Non Drug Allergy documented on EMR Reaction Allergy Type Onset Date Status lisinopril Lisinopril Swelling Drug Allergy Activ e Substance with 6-mwiadel-9-methylgluta ryl-coenzyme A reductase inhibitor mechanism of action (substance) Statins Swelling Drug Allergy Active REASON FOR VISIT HRT Insert- right side, Mammo: 12/11/23, BC: Hysterectomy, LABS: estradiol 98, fsh 8.3, testosterone 154, NG, MA Medications Medication SIG (Take, Route, Fr equency, Duration) Notes Start Date End Date Status CeleXA Active Plaquenil Active Vitamin D Active Testosterone Pellets Active Estrogen Pellets Act ruben Social History Tobacco Use: Social History Observation [...] Interpretation Negative Vital Signs Blood pressure systolic 124 mm Hg 08/17/20 24 Blood pressure diastolic 68 mm Hg 024 Height 70 in 08/17/2024 Weight 173.2 lbs 08/17/2024 BMI 24.85 kg/m2 08/17/2024 Encounters Encounter Location Date Provider Diagnosis [facility] [place] [address] [place] [address] 08/17/2024 Stephanie Ledbetter Menopausal and femal e climacteric states N95.1 Assessments Encounter Date Diagnosis (ICD Code) Assessment Notes Treatment Notes Treatment Clinical Notes 08/17/2024 Menopausal and female climacteric states (ICD-10 - N95.1) -HRT pellet inserted as documented above without [...] needed before next insertion if any concerns 08/17/2024 Other Plan Of Treatment Treatment Notes Assessment Notes Menopausal and female climacteric states -HRT pellet inserted as documented above without [...] Details Follow Up: 3 Months, Reason: Provider Name:Stephanie Ledbetter, 0 11/04/2024 01:30:00 PM, [address] [place], [address], Provider Name:Wayne Carrillo, 11/11/2024 01:00:00 PM, [address] [place], [address], Progress Notes * Ngozi DUFFYDOB: [birth year] (59 yo F)Acc No.[id number]:08/17/2024 Patient:?Ngozi DUFFY Provider:?Stephanie Ledbetter DNP :1965???Age:59 Y???Sex:Female D ate:08/17/2024 Address:[facility] [place] Pcp:Wayne Carrillo Subjective: * Chief Complaints: * ???1. HRT Insert- right side . 2. Mammo: 12/11/23. 3. BC: Hysterectomy. 4. LABS: estradiol 98, fsh 8.3, testosterone 154. 5. SARAN DUKES. * HPI: ???Hormone Replacement Therapy:?Hormone Replacement Therapy?Patient presents today for?repeat pellet insertion. ?Date of last pellet insert?06/03/2024 ?Estradiol (mg) dose received at last pellet insertion:?18 ?Testosterone (mg) dose received at last pellet insertion:?87.5 ?Site of last insertion was?left hip. ?Primary indications for HRT:?moderate to severe hot flashes,prevention of bone loss or fracture,low libido ?Today patient reports:?her main concern has improved. ?She is?menopausal. ?Her menstrual cycles are?Absent, patient does not have a uterus. ?UPT today was?N/A, status post hysterectomy. ?Mammogram date:?12/11/2023 ?Mammogram result:?ACR BI-RADs Category 1: Negative. ?Her uterus is?surgically absent, patient has history of hysterectomy. ?Her current form of endometrial protection is?N/A, status post hysterectomy ?Her current form of contraception includes:?N/A, status post hysterectomy * Medical History:?Arthritis, Cancer, HTN. * Product Development Engineer History:?Date of Last Period:?Hysterectomy.? Control: ?Hysterectomy.?Sexual Activity?Currently sexually active.?Sexually Tranmitted Disease (STD)?None.? * OB History:?GPAL:?G0.? * Surgical History:?Partial hy sterectomy 1993, Ankle fusion 02/2016. * Family History:?Mother: aiden jason with Hypertension.? * Social History:?Tobacco Use:?Tobacco Use/Smoking?Are [...] year??Monthly or less (1 point) ?Points?1 ?Interpretation?Negative * Medications:?Taking Estrogen Pellets , Taking Testosterone Pellets , Taking Vitamin D , Taking Plaquenil , Taking CeleXA , Medication List reviewed and reconciled with the patient * Allergies:?Lisinopril: Swell ing, Statins: Swelling. Objective: * Vitals:?Ht: 70 in, Wt:173.2l bs, BP:124/68mm Hg, BMI:24.85Index. * ???Past Orders: ???Lab:ESTRADIOL (Order Date - 08/10/2024) (Collection Date & Time - 08/10/2024 04:05 PM) ? Value Reference Range ?ESTRADIOL 98 - pg/mL ???Lab:TESTOSTERONE, TOTAL, LC/MS/MS (Order Date - 08/10/2024) (Collection Date & Time - 08/10/2024 04:05 PM) ? Value Reference Range ?TESTOSTERONE, TOTAL, 154 H 2-45 - ng/dL ???Lab:FSH (Order Date - 03/2024) (Collection Date & Time - 08/10/2024 04:05 PM) ? Value Reference Range ?FSH 8.3 - mIU/mL * Examination: ???*General Examination: ?GENERAL APPEARANCE:?in no [...] tolerated the procedure well. Today's dose Estradiol: 18.5 mg Testosterone: 75 mg Insertion site prepped per protocol. 3mm incision made in ____ L _x___ R Hip __x___Superficial Deep ___0_ degrees SOTTOPELLE LOT# E: See [facility] EMR for lot # T: See [facility] EMR for lot #. Assessment: * Assessment: 1.?Menopausal and female cli macteric states - N95.1 (Primary)??? Plan: * Treatment: * Procedure Codes:?1012 [employer] Membership No Charge Fee * Preventive Medicine:? ??YOUR PREVENTIVE WELLNESS PLAN:?Breast Cancer Screening (Mammogram):?My last mammogram was done on:?12/11/2023 Negative ?Cervical Cancer Screening (Pap Smear):?My last Pap smear was done on:?10/05/2014 ?Osteoporosis Screening (Bone Density Measurement):?My last bone density was done on:?Never ?Colorectal Cancer Screening:?Last Done Colonoscopy?10/05/2018 * Follow Up:?3 Months * Images: Billing Information: * Visit Code:? * Procedure Codes:? 1012 [place] Membership No Charge Fee. * YTICS CONSULTANT Sign off status: Completed true * Provider:?Stephanie Ledbetter DNP Date:? 024 Generated for Jeffry dukes/Sabrina/Margeitting on:?08/22/2024 07:42 AM ANALYTICS CONSULTANT History and Physical Notes * HPI (History of Present Illness) Category Sub-Category Detail Notes Hormone Replacement Therapy Hormone Replacement Therapy Patient presents today for: repeat pellet insertion. ?Date of last pellet insert: 06/03/2024 Estradiol (mg) dose received at last pel let insertion:: 18 Testosterone (mg) dose received at last pellet insertion:: 87.5 Site of last insertion was: left hip. Primary indications for HRT: : moderate to severe hot flashes,prevention of bone loss or fracture,low libido Today patient reports:: her main concern has improved. She is: menopausal. Her menstrual cycles are: Absent, merary pederson does not have a uterus. UPT today was: N/A, status post hysterec leland. Mammogram date:: 12/11/2023 Mammogram result:: ACR BI-RADs Category 1: Negative. Her uterus is: surgically absent, merary pederson has history of hysterectomy. Her current form of endometrial protecti on is: N/A, status post hysterectomy Her current form of contraception includ es:: N/A, status post hysterectomy Examination Category Sub-Category Detail Notes *General Examination GENERAL APPEARANCE: in no a cute distress, well developed, well nourished
--- OUTSIDE RECORDS SUMMARY | 2024-08-22 07:44 | XMS_ITS | Continuity of Care Document ---
Author Organization [facility] Address [address] [place] [address] Phone Care Team Providers Care Web Systems Developer Name Role Phone [facility], Miscellaneous Unavailable Unavailable Advance Directives Directive Yes / No Effective Date File Name No Information Encounters Encounter Description Practice Location Reason(s) For Visit Diagnoses Date Provider Providers Copied on Encounter [facility], [address], [place], [address], [place] tel:[phone] [facility] [place] No Information [facility] M[facility] e[facility]. [address], [address], [place], [place], [id number] , [place]. tel:[phone] Family History Family Member Type Diagnosis Age [...]
--- OUTSIDE RECORDS SUMMARY | 2024-08-22 07:44 | XMS_ITS | Patient Health Record ---
Author Organization [facility]'s [facility] Address [address] [place] [address] Care Team Providers Care Edge Beader Name Role Phone Wayne Carrillo Primary Care Provider [phone] Stephanie Ledbetter Unavailable [phone] Allergies Allergen (clinical drug ingredient) Drug/Non Drug Allergy documented on EMR Reaction Allergy Type Onset Date Status lisinopril Lisinopril Swelling Drug Allergy Activ e Substance with 7-pggzkxc-0-methylgluta ryl-coenzyme A reductase inhibitor mechanism of action (substance) Statins Swelling Drug Allergy Active Results Component Value Reference Range Notes ESTRADIOL Reviewed date:08/12/2024 08:57:17 AM Interpretation: Performing Lab:Lesley RAMIREZ-Julio [address] [facility] CenterJulioCvvcVH[address] Jimmy Gonzalez Notes/Report: 0; 0; 0 ESTRADIOL 98 Reference Range Follicular Phase: 19-144 Mid-Cycle: 64-357 Luteal Phase: 56-214 Postmenopausal: < or = 31 Reference range established on post-pubertal patient population. No pre-pubertal reference range established using this assay. For any patients for whom low Estradiol levels are anticipated (e.g. males, pre-pubertal children and hypogonadal/post-menopausal females), the [employer] [facility] Estradiol, Ultrasensitive, LCMSMS assay is recommended (order code 03317). Please note: patients being treated with the drug fulvestrant (Faslodex(R)) have demonstrated significant interference in immunoassay methods for estradiol measurement. The cross reactivity could lead to falsely elevated estradiol test results leading to an inappropriate clinical assessment of estrogen status. [employer] order code 74296-Cnarhbubs, Ultrasensitive LC/MS/MS demonstrates negligible cross reactivity with fulvestrant. FSH Reviewed date:08/12/2024 08:57:17 AM Interpretation: Performing Lab:JAMES, [employer]-Julio [address], Julio CarterZcogIA[address] Jimmy Gonzalez Notes/Report: 0; 0; 0 FSH 8.3 Reference Range Follicular Phase 2.5-10.2 Mid-cycle Peak 3.1-17.7 Luteal Phase 1.5- 9.1 Postmenopausal 23.0-116.3 TESTOSTERONE, TOTAL, LC/MS/M S Reviewed date:08/16/2024 09:31:59 AM Interpretation: Performing Lab:[place], [facility]-[address] [address], [address], DspvsnucnxQL[address] Keri Hartley MD,PhD Notes/Report: 0; 0; 0 TESTOSTERONE, TOTAL, MS 154 2-45 ng/dL For additional information, please refer to https://[facility].HackPad/faq/TotalTestosteroneLCMSMS (This link is being provided for informational/educational purposes only.) (Note) This test was developed and its analytical performance characteristics have been determined by [employer]. It has not been cleared or approved by the FDA. This assay has been validated pursuant to the CLIA regulations and is used for clinical purposes. med fusion [address] [address],[address] [facility] [address] Keri Hartley MD, PhD Sensitive Estradiol (IH) Reviewed date:05/31/2024 09:19:38 AM Interpretation: Performing Lab: Notes/Report: Access 2 ([id number])JulioJasmina - Lab Testosterone, Total (IH) Reviewed date:05/31/2024 09:19:38 AM Interpretation: Performing Lab: Notes/Report: Access 2 ([id number])JulioJasmina - Lab FSH (IH) Reviewed date:05/31/2024 09:19:38 AM Interpretation: Performing Lab: Notes/Report: Peter 2 ([id number])Jasmina Lab Sensitive Estradiol (IH) Reviewed date:03/15/2024 01:07:12 PM Interpretation: Performing Lab: Notes/Report: Peter 2 ([id number])JulioStratford - Lab Testosterone, Total (IH) Reviewed date:03/15/2024 01:07:12 PM Interpretation: Performing Lab: Notes/Report: Access 2 ([id number]), [place] - Lab FSH (IH) Reviewed date:03/15/2024 01:07:12 PM Interpretation: Performing Lab: Notes/Report: Access 2 ([id number]), [place] - Lab Sensitive Estradiol (IH) Reviewed date:12/15/2023 04:25:42 PM Interpretation: Performing Lab: Notes/Report: Access 2 ([id number]), Access 2 [facility] Testosterone, Total (IH) Reviewed date:12/15/2023 04:25:42 PM Interpretation: Performing Lab: Notes/Report: Access 2 ([id number]), Access 2 [facility] FSH (IH) Reviewed date:12/15/2023 04:25:42 PM Interpretation: Performing Lab: Notes/Report: Access 2 ([id number]), Access 2 [facility] Sensitive Estradiol (IH) Reviewed date:09/21/2023 04:28:21 PM Interpretation: Performing Lab: Notes/Report: Access 2 ([id number]), Access 2 [facility] Testosterone, Total (IH) Reviewed date:09/21/2023 04:28:21 PM Interpretation: Performing Lab: Notes/Report: Access 2 ([id number]), Access 2 [facility] FSH (IH) Reviewed date:09/21/2023 04:28:21 PM Interpretation: Performing Lab: Notes/Report: Access 2 ([id number]), Access 2 Rel[facility] Reason For Referral No [...] Problem Status W/U Status Risk Notes Problem 676202219 Menopausal and female climacteric states (N95.1) Active confirmed Problem 57451975 Chronic hypertension (I10) Active confirmed Problem Female climacteric state (978937553) Female climacteric state (N95.1) Active confirmed Problem [id number] Climacteric (N95.1) Active confirmed Problem Menopause (622204610) 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 Vital Signs Blood pressure diastolic 68 mm Hg 08/17/2024 Height 70 in 08/17/2024 Blood pressure systolic 124 mm Hg 08/17/2024 Weight 173.2 lbs 08/17/2024 BMI 24.85 kg/m2 08/17/2024 Encounters Encounter Location Date Provider Diagnosis [facility] [address] [place] [address] 09/21/2023 Wayne Carrillo Menopausal and femal e climacteric states N95.1 [facility] [address] [place] [address] 12/21/2023 Wayne Carrillo Menopausal and femal e climacteric states N95.1 [facility] [address] [place] [address] 03/18/2024 Wayne Carrillo Menopausal and femal e climacteric states N95.1 [facility] [address] [place] [address] 06/03/2024 Wayne Carrillo Menopausal and femal e climacteric states N95.1 [facility] [address] [place] [address] 08/17/2024 Stephanie Ledbetter Menopausal and femal e climacteric states N95.1 [facility] [address] [place] [address] 09/14/2023 Wayne Carrillo Menopausal and femal e climacteric states N95.1 [facility] [address] [place] [address] 12/14/2023 Wayne Carrillo Menopausal and femal e climacteric states N95.1 [facility] [address] [place] [address] 03/11/2024 Wayne Carrillo Menopausal and femal e climacteric states N95.1 [facility] [address] [place] [address] 05/27/2024 Wayne Carrillo Menopausal and femal e climacteric states N95.1 [facility] [address] [place] [address] 08/10/2024 Stephanie Anatoly Menopausal and femal e climacteric states N95.1 [facility] [address] [place] [address] [address] [place], [place] [address] 11/21/2023 Wayne Carrillo Assessments Encounter Date Diagnosis [...] and female climacteric states (ICD-10 - N95.1) 08/10/2024 Menopausal and female climacteric states (ICD-10 - N95.1) 08/17/2024 Menopausal and female climacteric states (ICD-10 [...] her next insertion, pt. typically completes at [facility] -Report any signs of infection [...] any concerns 08/17/2024 Other Plan Of Treatment Next Appt Details Provider Name:Stephanie Ledbetter, 0 11/04/2024 01:30:00 PM, [address] [place], [address], Provider Name:Wayne Carrillo, 11/11/2024 01:00:00 PM, [address] [place], [address], Insurance Providers Payer Name Payer Address Payer Phone Subscriber Number Group Number Insured Name Patient Relationship to Insured Coverage Start Date Coverage End Date BCBS - (Client Bill) [address] [place] [id number] Ngozi Paez Self - patient is the insured Medical (General) History Medical History History ICD Code Arthritis Cancer HTN Surgical History Surgery Date(Month/Year) Partial hysterectomy 1993 Ankle fusion 02/2016
--- OUTSIDE RECORDS SUMMARY | 2024-08-22 07:44 | XMS_ITS ---
Author Organization [facility] Address [address] [place] [address] Care Team Providers Care Cork Insulation Setter Name Role Phone Wayne Carrillo Primary Care Provider [phone] Stephanie Ledbetter [phone] Results Component Value Reference Range Notes ESTRADIOL Reviewed date:08/12/2024 08:57:17 AM Interpretation: Performing Lab:JAMES Sand 9-[address] [facility] DomositeCnnpFF[address] Jimmy Gonzalez Notes/Report: 0; 0; 0 ESTRADIOL 98 Reference Range Follicular Phase: 19-144 Mid-Cycle: 64-357 Luteal Phase: 56-214 Postmenopausal: < or = 31 Reference range established on post-pubertal patient population. No pre-pubertal reference range established using this assay. For any patients for whom low Estradiol levels are anticipated (e.g. males, pre-pubertal children and hypogonadal/post-menopausal females), the Sand 9 [facility] Estradiol, Ultrasensitive, LCMSMS assay is recommended (order code 56453). Please note: patients being treated with the drug fulvestrant (Faslodex(R)) have demonstrated significant interference in immunoassay methods for estradiol measurement. The cross reactivity could lead to falsely elevated estradiol test results leading to an inappropriate clinical assessment of estrogen status. Sand 9 order code 86550-Pymrxjhdm, Ultrasensitive LC/MS/MS demonstrates negligible cross reactivity with fulvestrant. FSH Reviewed date:08/12/2024 08:57:17 AM Interpretation: Performing Lab:Lesley RAMIREZ [facility]-Julio Z[address]gp[address] [employer] MYFX DomositeRyvlTF[address] Jimmy Gonzalez Notes/Report: 0; 0; 0 FSH 8.3 Reference Range Follicular Phase 2.5-10.2 Mid-cycle Peak 3.1-17.7 Luteal Phase 1.5- 9.1 Postmenopausal 23.0-116.3 TESTOSTERONE, TOTAL, LC/MS/M S Reviewed date:08/16/2024 09:31:59 AM Interpretation: Performing Lab:[place], [facility]-[address] [address], [address], EwzpkchurkVJ[address] Keri Hartley MD,PhD Notes/Report: 0; 0; 0 TESTOSTERONE, TOTAL, MS 154 2-45 ng/dL For additional information, please refer to https://education.[employer]/faq/TotalTestosteroneLCMSMS (This link is being provided for informational/educational purposes only.) (Note) This test was developed and its analytical performance characteristics have been determined by [employer]. It has not been cleared or approved by the FDA. This assay has been validated pursuant to the CLIA regulations and is used for clinical purposes. MD med fusion [address] [address],[address] [facility] [address] Keri Hartley MD, PhD REASON FOR VISIT HRT Labs Medications Medication SIG (Take, Route, Fr equency, Duration) Notes Start Date End Date Status Estrogen Pellets Act ruben Vitamin D Active Testosterone Pellets Active CeleXA Active Plaquenil Active Encounters Encounter Location Date Provider Diagnosis [facility] [address] [place] [address] 08/10/2024 Stephanie Ledbetter Menopausal and femal e climacteric states N95.1 Assessments Encounter Date Diagnosis (ICD Code) Assessment Notes Treat ment Notes Treatment Clinical Notes 08/10/2024 Menopausal and female climacteric states (ICD-10 - N95.1) Plan Of Treatment Next Appt Details Provider Name:Stephanie Ledbetter, 0 11/04/2024 01:30:00 PM, [address] [place], [address], Provider Name:Wayne Carrillo, 11/11/2024 01:00:00 PM, [address] [place], [address], Progress Notes * PAEZ, VictoriaDOB: [birth year] (59 yo F)Acc No.[id number]:08/10/2024 Patient:?Ngozi PAEZ Provider:?Stephanie Ledbetter DNP :1965???Age:59 Y???Sex:Female D ate:08/10/2024 Address:[address] [place] [address] [place] Pcp:Wayne Carrillo Subjective: * Chief Complaints: * ???1. HRT Labs. * Medical History:? * Medications:?Taking Estrogen Pellets , Taking Testosterone Pellets , Taking Vitamin D , Taking Plaquenil , Taking CeleXA Objective: * Vitals:? Assessment: * Assessment: 1.?Menopausal and female cli macteric states - N95.1 (Primary)??? Plan: * Treatment: ? Value Reference Range ?ESTRADIOL 98 - pg/mL * Stephanie Ledbetter 08/12/2024 08:5 7:13 AM COMMERCIAL GREEN BUILDING ARCHITECT > ?LAB: FSH (Collection Date & Time - 08/10/2024 04:05 PM)* ? Value Reference Range ?FSH 8.3 - mIU/mL * Stephanie Ledbetter 08/12/2024 08:5 7:13 AM COMMERCIAL GREEN BUILDING ARCHITECT > ?LAB: TESTOSTERONE, TOTAL, LC/MS/MS (Collection Date & Time - 08/10/2024 04:05 PM)* ? Value Reference Range ?TESTOSTERONE, TOTAL, 154 H 2- 45 - ng/dL * Stephanie Ledbetter 08/12/2024 08:5 7:13 AM COMMERCIAL GREEN BUILDING ARCHITECT > * Procedure Codes:?91424 ASSAY OF ESTRADIOL, Modifiers: 90 , 66742 GONADOTROPIN (FSH), Modifiers: 90 , 75489 ASSAY OF TOTAL TESTOSTERONE, Modifiers: 90 , 48432 VENIPUNCT, ROUTINE* * Images: Billing Information: * Visit Code:? * Procedure Codes:? 38406 ASSAY OF ESTRADIOL. Modifiers: 90 19578 GONADOTROPIN (FSH). Modifiers: 90 95521 ASSAY OF TOTAL TESTOSTERONE. Modifiers: 90 97462 VENIPUNCT, ROUTINE*. * ERCIAL GREEN BUILDING ARCHITECT Sign off status: Completed true * Provider:Keith Ledbetter DNP Date:? 024 Generated for Jeffry leon/Sabrina/Diony on:?08/22/2024 07:42 AM COMMERCIAL GREEN BUILDING ARCHITECT
--- OUTSIDE RECORDS SUMMARY | 2024-08-22 07:44 | XMS_ITS ---
Author Organization [facility] Address [address] [place] [address] Care Team Providers Care Well Site Drilling Engineer Name Role Phone Wayne Carrillo Primary Care Provider [phone] Encounters Encounter Location Date Provider Diagnosis [facility] [address] [place] [address] 06/10/2024 Wayne Carrillo Plan Of Treatment Next Appt Details Provider Name:Stephanie Ledbetter, 0 11/04/2024 01:30:00 PM, [address] [place], [address], Provider Name:Wayne Carrillo, 11/11/2024 01:00:00 PM, [address] [place], [address], Progress Notes * Ngozi DUFFYDOB: [birth year] (59 yo F)Acc No.[id number]:06/10/2024 Patient:?DUFFYNgozi SALINAS Provider:?ABIGAIL Pulido :1965???Age:58 Y???Sex:Female D ate:06/10/2024 Address:[address] [address] [place]-[id number] Subjective: * Chief Complaints: * ??? * Medical History:? Objective: * Vitals:? Assessment: Plan: * Treatment: * Images: Billing Information: * Visit Code:? * Procedure Codes:? * Electronic signature of Jerry Carrillo on 08/22/2024 at 07:42 AM EYEDOTTER Sign off status: Pending * Provider:?ABIGAIL Pulido Date:?03/2024 Generated for Jeffry leon/Sabrina/Diony on:?08/22/2024 07:42 AM EYEDOTTER
--- OUTSIDE RECORDS SUMMARY | 2024-08-22 07:44 | XMS_ITS | Clinical Summary ---
Author Organization [facility] Address [place], [place] [address] Care Team Providers Care Photoengraving Etcher Name Role Phone Clinic, [facility] Primary Care Pr ovider Allergies No known [...] Department Care Team Description 07/01/2024 Transcribe Orders [facility] [address] [place] [address] Suzan Forte MD 06/27/2024 Lab Requisition [facility] [phone] Suzan Forte MD from Last 3 Months [...] st Contact Info) Description 09/13/2024 1:[address] [facility] [facility] Telemedicine [facility] [address] [place] [address] Mag Mckeon, [place], [facility] [address] [place] [address] Health Maintenance Due Date Last Done Comments [...] CDT Suzan Forte MD LAB BILL ONLY [facility] [address] [place] [address], * PATH TISSUE EXAM (06/27/2024 8:30 AM CDT) Case Report Pathology Report ?Case: [id number] ? Authorizing Provider: ??Suzan Forte MD ??Collected: ? 06/27/2024 0830 ? Ordering Location: ? [facility] ?Received: ?06/28/2024 0808 ? Pathologist: ? Yoni Mccrary, ? MD ? Specimens: ?? A) - Ascending Colon Biopsy ? B) - Hepatic Flexure Biopsy ? C) - Transverse Colon Biopsy ? D) - Splenic Flexure Polyp ? E) - Sigmoid Biopsy ? 06/29/2024 3:20 PM CDT [facility] Final Diagnosis A) [...] c. Retrieval: Complete 06/29/2024 3:20 PM CDT [facility]- N[facility]AL LABORAT[facility] Clinical Information History of colon polyps 06/29/2024 3:20 PM CDT [facility] Gross Description A) Received in [...] 06/28/2024 9:08 AM 06/29/2024 3:20 PM CDT [facility] Microscopic Description The final diagnosis is based on microscopic examination of appropriate sections of all specimens. 06/29/2024 3:20 PM CDT [facility] Additional Information Interpreted at [facility], Central Laboratory - [address] [facility] [address], [place] [address] 06/29/2024 3:20 PM CDT [facility] Other (Ascending Colon Biopsy) 06/27/2024 [...] AM CDT Suzan Forte MD PATHOLOGY/[facility] [address] [place] [address], * (ABNORMAL) LIPID PANEL W REFLEX MEASURED LDL (12/15/2014 2:56 PM CDT) CHOLESTEROL,TOTAL 261(H) 100 - 199 mg/dL 12/15/2014 3:30 PM CDT [facility] TRIGLYCERIDES 152(H) <150 mg/dL 12/15/2014 3:30 PM CDT [facility] HDL CHOLESTEROL 80 >40 mg/dL 5 3:30 PM CDT [facility] NON-HDL CHOLESTEROL 181(H) <145 mg/dl 12/15/2014 3:30 PM CDT [facility] CHOL/HDL RATIO 3.26 <4.50 12/15/2014 3:30 PM CDT [facility] LDL CHOLESTEROL 151(H) <=130 mg/dL 12/15/2014 3:30 PM CDT [facility] PATIENT STATUS FASTING 12/15/2014 3:30 PM CDT [facility] Blood specimen (specimen) BLOOD SPECIMEN / Unknown Venipuncture / Unknown 12/15/2014 2:56 PM CDT 12/15/2014 2:56 PM CDT Lissa Mccollum CHEMISTRY Performing Organization Address City/State/[facility] Co de Phone Number [facility] [address] [place] [address], * XR MAMMO BILAT SCREEN FFDM (12/30/2013 [...] Recently Relevant to Health Maintenance Care Teams Photoengraving Etcher Relationship Specialty Start Date End Date Clinic, [facility] [address] [place] [address] PCP - General 05/16/24
--- OUTSIDE RECORDS SUMMARY | 2024-08-22 07:44 | XMS_ITS | Clinical Summary ---
Author Organization [place] Address [address] [place] [address]. [place] [address] Care Team Providers Care Plasma Processor Name Role Phone Matthias Nunes MD Unavailable [phone] Edwardo Roland Unavailable [phone] [facility]- Primary Care Provider Allergies Active Allergy [...] on file Legal Sex Female 3:27 AM PATCHING MACHINE OPERATOR Gender Identity Not on file Sexual Orientation Not on file Last Filed Vital Signs Vital Sign Reading Time Taken Comments Blood Pressure 131/101 11/25/2022 3:41 PM PATCHING MACHINE OPERATOR Pulse 84 11/25/2022 3:41 PM PATCHING MACHINE OPERATOR Temperature 36.6 ??C (97.9 ??F) 11/25/2022 10:[address] Respiratory Rate 16 11/25/2022 3:41 PM PATCHING MACHINE OPERATOR Oxygen Saturation 98% 11/25/2022 3:41 PM PATCHING MACHINE OPERATOR Inhaled Oxygen Concentration - - Weight - [...] BASIC METABOLIC PANEL STAT 11/25/2022 11:05 AM PATCHING MACHINE OPERATOR from Last 3 Months or Most Recently Relevant to Health Maintenance Results * (ABNORMAL) Basic metabolic panel (BMP) (11/25/2022 11:05 AM PATCHING MACHINE OPERATOR) Sodium 140 136 - 145 mmol/L 11/25/2022 11:50 AM [facility] Potassium 5.1 3.4 - 5.3 mmol/L 11/25/2022 11:50 AM [facility] Comment:Specimen slightly he molyzed, potassium may be falsely elevated. Chloride 100 98 - 107 mmol/L 11/25/2022 11:50 AM [facility] Carbon Dioxide (CO2) 26 22 - 29 mmol/L 11/25/2022 11:50 AM [facility] Anion Gap 14 7 - 15 mmol/L 11/25/2022 11:50 AM [facility] Urea Nitrogen 11.3 6.0 - 20.0 mg/dL 11/25/2022 11:50 AM [facility] Creatinine 0.49(L) 0.51 - 0.95 mg/dL 11/25/2022 11:50 AM [facility] Calcium 9.9 8.6 - 10.0 mg/dL 11/25/2022 11:50 AM [facility] Glucose 94 70 - 99 mg/dL 11/25/2022 11:50 AM [facility] GFR Estimate >90 >60 mL/min/1.7 3m2 11/25/2022 11:50 AM [facility] Comment:eGFR calculated usin g 2020 CKD-EPI equation. Blood BLOOD SPECIMEN / Unknown Venipuncture / Unknown 11/25/2022 11:05 AM PATCHING MACHINE OPERATOR 11/25/2022 11:11 AM PATCHING MACHINE OPERATOR Nisha Caputo MD LAB - BLOOD ORDERABLES F inal Result [facility] [address] Lab (1st floor, no room number) [place] [address], [facility] [phone] from Last 3 Months or Most Recently Relevant to Health Maintenance Insurance [place] OF [place] [facility] Care Teams Plasma Processor Relationship Specialty Start Date End Date [facility] [address] [place] [address] PCP - General 11/25/22 Matthias Nunes MD [address] [place] [id number] Orthopedics 11/07/15 Edwardo Roland [address] [place], [place] [address] Podiatry 11/07/15
[2024-08-22] MEDS: SODIUM CHLORIDE 0.9 % (FLUSH) 10 ML SYRINGE IVF (08:06)
[2024-08-22] MEDS: 0.9 % SODIUM CHLORIDE 500 ML 500 ML 100 ML IV (08:06)
[2024-08-22] MEDS: fentaNYL 100 MCG/2 ML inj IVP (08:37)
[2024-08-22] MEDS: MIDAZOLAM HCL 1 MG/ML inj IVP (08:37)
--- NOTE | 2024-08-22 08:42 | SUR.PREOP ---
TIME?OUT:?0836 PT/RN/MDA?VERIFICATION?OF?SURGICAL?SITE,?PROCEDURE,?AND?CONSENT OBTAINED?PRIOR?TO?INVASIVE?PROCEDURE.
--- NOTE | 2024-08-22 09:18 | W.PM.H&PU ---
History & Physical Update History & Physical Update H&P Reviewed and patient assessed: No changes noted
[2024-08-22] MEDS: CEFAZOLIN 2 GM in 0.9 % SODIUM CHLORIDE Mini-bag 100 ML IVPB (09:35)
--- NOTE | 2024-08-22 09:40 | P.NB_ITS ---
Nerve Block Nerve Block Time Seen by Provider: 08:40 Date Seen: 08/22/24 Type of block requested by surgeon for post-operative analgesia: supraclavicular Side: right Time out performed: Yes Verification of patient name: Yes Verification of date of : Yes Site marking: site marked Name of person performing procedure: Herve Continuous monitoring Was continuous monitoring of O2 sat, B/P, investigator utility bill complaints, recorded every 15 minutes?: Yes Procedure Checklist: sterile prep, needles and gloves Ultrasound guided. Images saved: Yes Medications given in 5ml increments after negative aspiration: Ropivicaine %: 0.5 mL: 15 Needle gauge: 22 Precedex (mcg): 25 Patient tolerated procedure well: Yes Block Charges Block Charge (with Pro Fee): Brachial Plexus Use of Ultrasound Machine for Block: Yes- US Guidance/pain block
--- NOTE | 2024-08-22 09:41 | W.ANESCHARGE ---
Anesthesia Charges Start Date/Time Anesthesia Start Date: 08/22/24 Anesthesia Start Time: 09:15 Stop Date/Time Anesthesia Stop Date: 08/22/24 Anesthesia Stop Time: 12:34
--- NOTE | 2024-08-22 12:36 | W.ANESCHARGE ---
Anesthesia Charges Start Date/Time Anesthesia Start Date: 08/22/24 Anesthesia Start Time: 09:15 Stop Date/Time Anesthesia Stop Date: 08/22/24 Anesthesia Stop Time: 12:34
--- NOTE | 2024-08-22 13:07 | SUR.PHASEI ---
patient met discharge criteria per anesthesia
--- NOTE | 2024-08-22 13:14 | PM.ORPRC ---
Procedure Note Date of procedure: 08/22/24 Procedure: PREOPERATIVE DIAGNOSES: 1. Right shoulder rotator cuff bnoi-kvgq-xievfqiap at the articular edge with footprint still intact. 2. Right shoulder subacromial impingement syndrome. 3. Right shoulder long of the biceps high-grade partial-thickness tear 4. Right shoulder anterior and superior labral tearing POSTOPERATIVE DIAGNOSES: 1. Right shoulder rotator cuff biqm-fcip-tvcujxcob at the articular edge with footprint still intact - with subpar tissue quality for reapproximation with and and tendon repair/marginal convergence warranting dermal allograft augmentation 2. Right shoulder long of the biceps high-grade partial-thickness tear 3. Right shoulder anterior and superior labral tearing 4. Right shoulder subacromial impingement syndrome. 5. Right shoulder chondromalacia anterior humeral head NAME OF OPERATION: 1. Right shoulder arthroscopic rotator cuff repair. 2. Right shoulder arthroscopic dermal allograft augmentation of rotator cuff repair due to subpar tissue quality with end to end repair. 3. Right shoulder arthroscopic extensive glenohumeral debridement 4. Right shoulder arthroscopic bursectomy, subacromial decompression/partial acromioplasty. SURGEON: Popeye Archuleta MD SENIOR INSTRUMENTATION ENGINEER: Konrad Boland PA-C. Of note, a skilled assistant research scientist was critical for this case to aide in patient positioning, suture manipulation, arm positioning, instrument positioning, and closure. ANESTHESIA: General plus preoperative supraclavicular block. EBL: 50 mL IMPLANTS: Arthrex 4.75 mm BioComposite knotless SwiveLock suture anchor (x1); Arthrex 4.75 mm BioComposite standard SwiveLock suture anchor (x2); 20 x 25 mm cuff min and dermal allograft augmentation. Single FiberTak knotless device to help with dermal allograft security to the existing rotator cuff. COMPLICATIONS: None evident INDICATIONS: The patient is a pleasant, 59-year-old female who has experienced right shoulder pain that has been increasing in recent time. Physical exam and imaging were consistent with a rotator cuff tear. Given their findings, as well as the weakness and pain, and inadequate response to nonoperative management, recommendation was made for surgery. FINDINGS: Exam under anesthesia revealed stable shoulder with excellent range of motion. The diagnostic arthroscopy revealed grade 2-3 chondromalacia anterior humeral head near the biceps exit. The Subscapularis tendon was torn from the upper border with mild retraction. The long head of the biceps tendon was intact. The superior rotator cuff tendon was found to be torn full-thickness through the supraspinatus at the articular edge/medial footprint. The entire footprint remained on the greater tuberosity. The labrum was degeneratively frayed in the anterior and superior aspects. No loose bodies were identified within the pouch or subscapularis recess. PROCEDURE: Following a thorough discussion of risks, benefits, and alternatives, consent was obtained and the right shoulder was marked. The patient was brought to the operating room and placed supine on the operating table. Induction of anesthesia was completed after preoperative supraclavicular block was administered in preop holding. Appropriate time out was performed identifying proper patient, site, and procedure. 2 g IV Ancef was administered within 1 hour of incision preoperatively. The right upper extremity was prepped and draped in the appropriate sterile fashion using ChloraPrep prep. This was after the patient was positioned in the beach chair with their head in neutral alignment and all bony prominences well padded. The shoulder was insufflated with 20mL of normal saline via an 18g spinal needle from a posterior approach. An 11 blade skin incision allowed a blunt trochar to be inserted and diagnostic arthroscopy to be performed with the findings as noted above. An anterior portal was established with an outside in technique. This allowed the probe to be inserted and confirm the diagnostic arthroscopic findings. The shaver was then inserted and allowed debridement of the anterior and superior labrum, the long head of the biceps tendon which underwent an arthroscopic tenotomy as was nearly in that state already, and the anterior humeral chondral tissue of the loose chondral flaps. Following this, the upper border subscapularis was repaired after debriding the lesser tuberosity with the shaver and Concord cautery. Subscapularis was captured in horizontal mattress fashion with a fiber tape suture. The tails were brought to a single anchor in the lesser tuberosity with excellent reapproximation of the subscap tendon and good excursion/tension. Thereafter, the subacromial space was entered. Here, a complete bursectomy and partial acromioplasty/subacromial decompression was performed with a combination of radiofrequency ablator, the shaver, and a 5.5 mm bur. Further inspection of the supraspinatus and infraspinatus rotator cuff was performed. This identified the tear as noted above. The margins of the tear were debrided, and the greater tuberosity was debrided with a combination of the apollo cautery, shaver, and bur on reverse setting. After gentle decortication, a single medial 4.75 mm knotless SwiveLock suture anchor was placed at the medial footprint. Again the majority of the footprint remained in place for the supraspinatus. This anchor allowed us to pass 2 FiberTapes in independent fashion as well as the knotless mechanism into a 3rd anchor. Each of these tapes was eventually blot to a single lateral row anchor. However, given the dxdw-fs-gfgm repair of the supraspinatus tendon tissue and the subpar tissue quality, it was felt that a dermal allograft augmentation was prudent to improve the biology and tissue quality potential. Thus, a 20 x 25 mm cuff mend dermal allograft was placed on top of the mvqs-wl-nnah rotator cuff repair. It was secured by passing tapes and the knotless mechanism through the dermal allograft. The knotless mechanism was engaged in lot to cinch down that graft on the posterior medial aspect. To help secure the anterior medial aspect, a single FiberTak knotless suture repair device was utilized passing it from the superficial to the deep through the dermal allograft and rotator cuff. Finally, the lateral row of the dermal allograft was secured with fiber links in each corner to the lateral row fixation which also secured the FiberTape sutures. The rotator cuff showed excellent reapproximation of the greater tuberosity with good security upon probing. Prior to anchor straddle bug driver removal, the eyelet sutures were tugged on for each anchor and found that the anchor had excellent stability within the bone. The shoulder was placed through range of motion and found to be stable. The rotator cuff was re-probed and found to be stable. Instruments were removed. Excess fluid was drained, closure performed with 4-0 Monocryl and Steri-Strips. Dressings were applied. Sling was applied. The patient was awoken from anesthesia and transferred to the PACU in stable condition. A skilled assistant research scientist was critical for this case to aid in patient positioning, limb positioning, skill to manipulate arthroscopic instruments and camera, suture management, patient safety, and closure. PLAN: 1. Elbow, forearm, wrist and digit range of motion as tolerated. 2. Encouraged ice. 3. Oxycodone for pain as needed. 4. Sling at all times except for ROM and showering. 5. Follow up with PA visit in 1-2 weeks for wound check. Initiate physical therapy following that visit for passive range of motion. Initiate active assisted range of motion at 6 weeks. May do pendulums now.
== END 2024-08-22 14:17 | disposition home or self-care (01) ==
LOC: OR 07:22
PROVIDERS: PCP Emergency Medicine; Visit Provider Orthopaedic Surgery Sports Medicine
PROC: (CPT 29805; principal; 2024-08-22 09:15)
DX: M75.121 Complete rotator cuff tear or rupture of right shoulder, not specified as traumatic (principal); M75.41 Impingement syndrome of right shoulder; S46.111A Strain of muscle, fascia and tendon of long head of biceps, right arm, initial encounter; S43.431A Superior glenoid labrum lesion of right shoulder, initial encounter; M94.211 Chondromalacia, right shoulder; G89.18 Other acute postprocedural pain
CPT/HCPCS: 29827; 15272; 15271; 29826; 29823; 29828; 01630; 64415; 76942; C1713; J0171; J0330; J0690; J1100; J2250; J2371; J2405; J2704; J2710; J2795; J3010; J7030; L3670; Q4125

== ENCOUNTER 2024-09-20 10:38 | Outpatient (CLI) | payer BC, SELFPAY | END 2024-09-20 10:39 | disposition home or self-care (01) | LOC: LKVREF 10:39 | PROVIDERS: PCP Emergency Medicine; Visit Provider Emergency Medicine | DX: I10 Essential (primary) hypertension (principal) | CPT/HCPCS: 80048 ==

== ENCOUNTER 2024-09-23 10:26 | Day surgery (SDC) | payer BC, SELFPAY ==
--- OUTSIDE RECORDS SUMMARY | 2024-09-15 04:14 | XMS_ITS ---
Author Organization [facility] Address [address] [place] [address] Care Team Providers Care Electric Motor Assembler And Tester Name Role Phone Wayne Carrillo Primary Care Provider Stephanie Ledbetter Unavailable [phone] Allergies Allergen (clinical drug ingredient) Drug/Non Drug Allergy documented on EMR Reaction Allergy Type Onset Date Status lisinopril Lisinopril Swelling Drug Allergy Activ e Substance with 5-jusyjim-7-methylgluta ryl-coenzyme A reductase inhibitor mechanism of action [...] Interpretation Negative Vital Signs Height 70 in 08/17/2024 Weight 173.2 lbs 08/17/2024 Blood pressure systolic 124 mm Hg 08/17/20 24 Blood pressure diastolic 68 mm Hg 024 BMI 24.85 kg/m2 08/17/2024 Encounters Encounter Location Date Provider Diagnosis [facility] [place] [address] [place] [address] 08/17/2024 Stephanie Ledbetter Menopausal and femal e climacteric states N95.1 Assessments Encounter Date Diagnosis (ICD Code) Assessment Notes Treatment Notes Treatment Clinical Notes Section Notes 08/17/2024 Menopausal and female climacteric states [...] Follow Up: 3 Months, Reason: Provider Name:Stephanie Anatoly, 0 11/04/2024 01:30:00 PM, [address] [place], [address], Provider Name:Wayne Carrillo, 11/17/2024 01:00:00 PM, [address] [place], [address], Progress Notes * Ngozi DUFFYDOB: [birth year] (59 yo F)Acc No.[id number]:08/17/2024 Patient: Ngozi PICHARDO Provider: Murphy Ledbetter DNP :1965 A ge:59 Y S ex:Female Date:08/17/2024 Address:[facility] [address] [place] Pcp:Wayne Carrillo Subjective: * Chief Complaints: * 1 . HRT Insert- right side. 2. Mammo: 12/11/23. 3. BC: Hysterectomy. 4. LABS: estradiol 98, fsh 8.3, testosterone 154. 5. SARAN DUKES. * HPI: H ormone Replacement Therapy: Hormone Replacement Therapy P atient presents today for r epeat pellet insertion. D ate of last pellet insert 0 06/03/2024 E stradiol (mg) dose received at last pellet insertion: 1 8 T estosterone (mg) dose received at last pellet insertion: 8 7.5 S ite of last insertion was l eft hip. P rimary indications for HRT: m oderate to severe hot flashes,prevention of bone loss or fracture,low libido T shantanu patient reports: h er main concern has improved. S he is m enopausal. H er menstrual cycles are A bsent, patient does not have a uterus. U PT today was N /A, status post hysterectomy. M ammogram date: 0 12/11/2023 M ammogram result: A CR BI-RADs Category 1: Negative. H er uterus is s urgically absent, patient has history of hysterectomy. H er current form of endometrial protection is?N/A, status post hysterectomy H er current form of contraception includes:?N/A, status post hysterectomy * Medical History: A rthritis, Cancer, HTN. * Cash Clerk History: D ate of Last Period: H ysterectomy. B irth Control: H ysterectomy. S exual Activity C urrently sexually active. S exually Tranmitted Disease (STD) N one. * OB History: G PAL: G 0. * Surgical History: P artial hysterectomy 1993, Ankle fusion 02/2016. * Family History: M other: diagnosed with Hypertension. * Social History: T obacco Use: T obacco Use/Smoking A re you a c urrent smoker H ow often do you smoke cigarettes? e very day D rugs/Alcohol: D rugs H ave you used drugs other than those for medical reasons in the past 12 months? N o Alcohol Screen (Audit-C) D id you have a drink containing alcohol in the past year? Y es H ow often did you have a drink containing alcohol in the past year? M onthly or less (1 point) P oints 1 I nterpretation N egative * Medications: T aking Estrogen Pellets , Taking Testosterone Pellets , Taking Vitamin D , Taking Plaquenil , Taking CeleXA , Medication List reviewed and reconciled with the patient * Allergies: L isinopril: Swelling, Statins: Swelling. Objective: * Vitals: H t: 70 in, Wt:173.2lbs, BP:124/68mm Hg, BMI:24.85Index. * P ast Orders: L ab:ESTRADIOL (Order Date - 08/10/2024) (Collection Date & Time - 08/10/2024 04:05 PM) Value Reference Range ESTRADIOL 98 - pg/mL L ab:TESTOSTERONE, TOTAL, LC/MS/MS (Order Date - 08/10/2024) (Collection Date & Time - 08/10/2024 04:05 PM) Value Reference Range TESTOSTERONE, TOTAL, 154 H 2-45 - ng/dL L ab:FSH (Order Date - 08/10/2024) (Collection Date & Time - 08/10/2024 04:05 PM) Value Reference Range FSH 8.3 - mIU/mL * Examination: * General Examination: GENERAL APPEARANCE: i n no acute distress, well developed, well nourished. T he patient was positioned left lateral and the [...] _x___ R Hip __x___Superficial Deep ___0_ degrees SOTTOPEBERTHA LOT# E: See [facility] EMR for lot # T: See [facility] EMR for lot #. Assessment: * Assessment: 1. M enopausal and female climacteric states - N95.1 (Primary) Plan: * Treatment: * Procedure Codes: [facility] * Preventive Medicine: YOUR PREVENTIVE WELLNESS PLAN: B reast Cancer Screening (Mammogram): My last mammogram was done on: 0 12/11/2023 Negative C ervical Cancer Screening (Pap Smear): My last Pap smear was done on: 0 10/05/2014 O steoporosis Screening (Bone Density Measurement): My last bone density was done on: N ever C olorectal Cancer Screening: Last Done Colonoscopy 0 10/05/2018 * Follow Up: 3 Months * Images: Billing Information: * Visit Code: * Procedure Codes: 1012 [facility] Membership No Charge Fee. * DEVELOPER OPERATOR Sign off status: Completed true * Provider: Murphy Ledbetter DNP Date: 10/17/2023 Generated for Jeffry dukes/Sabrina/Diony on: 11/16/2023 04:14 AM OPEN DEVELOPER OPERATOR History and Physical Notes * HPI (History of Present Illness) Category Sub-Category Detail Notes Category Not es Hormone Replacement Therapy Hormone Replacement Therapy Consult Patient presents today for: repeat pellet insertion. Date of last pellet insert: 06/03/2024 Estradiol (mg) [...] post hysterectomy Examination Category Sub-Category Detail Notes Category Not es *General Examination GENERAL APPEARANCE: in no acute distress, well developed, well nourished The patient was positioned left lateral and the [...] _x___ R Hip __x___Superficial Deep ___0_ degrees MARTY LOT# E: See [facility] EMR for lot # T: See [facility] EMR for lot #
--- OUTSIDE RECORDS SUMMARY | 2024-09-15 04:14 | XMS_ITS ---
Author Organization [facility] Address [address] [place] [address] Care Team Providers Care Reach Lift Truck Driver Name Role Phone Wayne Carrillo Primary Care Provider REASON FOR VISIT HRT Insert Encounters Encounter Location Date Provider Diagnosis [facility] [address] [place] [address] 08/26/2024 Wayne Carrillo Plan Of Treatment Next Appt Details Provider Name:Stephanie Ledbetter, 0 11/04/2024 01:30:00 PM, [address] [place], [address], Provider Name:Wayne Carrillo, 11/17/2024 01:00:00 PM, [address] [place], [address], Progress Notes * DUFFY, NgoziDOB: [birth year] (59 yo F)Acc No.[id number]:08/26/2024 Patient: Ngozi PICHARDO Provider: ABIGAIL Jimenez :1965 A ge:59 Y S ex:Female Date:08/26/2024 Address:[phone] Subjective: * Chief Complaints: * 1 . HRT Insert. * Medical History: Objective: * Vitals: Assessment: Plan: * Treatment: * Images: Billing Information: * Visit Code: * Procedure Codes: * Electronic signature of Andmarco Carrillo on 09/15/2024 at 04:14 AM PUBLIC SAFETY POLICE Sign off status: Pending * Provider: ABIGAIL Jimenez Date: 10/26/2023 Generated for Jeffry leon/Sabrina/Diony on: 11/16/2023 04:14 AM PUBLIC SAFETY POLICE
--- OUTSIDE RECORDS SUMMARY | 2024-09-15 04:14 | XMS_ITS ---
Author Organization [facility] Address [address] [place] [address] Care Team Providers Care Aerospace Technician Name Role Phone Wayne Carrillo Primary Care Provider REASON FOR VISIT 09/13 Scheduled - r/s HRT Insert Encounters Encounter Location Date Provider Diagnosis [facility] [address] [place] [address] 09/08/2024 Wayne Carrillo Plan Of Treatment Next Appt Details Provider Name:Stephanie Ledbetter, 0 11/04/2024 01:30:00 PM, [address] [place], [address], Provider Name:Wayne Carrillo, 11/17/2024 01:00:00 PM, [address] [place], [address], Progress Notes * Ngozi DUFFYDOB: [birth year] (59 yo F)Acc No.[id number]:09/08/2024 Patient: Ngozi PICHARDO :1965 A ge:59 Y S ex:Female Address:[address] [place], [address] * true * Date: Generated for Suzannei ng/Fadennyg/eTransmitting on: 11/16/2023 04:14 AM LOADING SHOVEL OILER
[2024-09-23] VITALS (10 sets, daily range): BP systolic 91–130; BP diastolic 60–88; PULSE 56–82; RESP 14–16; TEMP 36.2–37.1; O2SAT 94–98; BMI 24.6
--- OUTSIDE RECORDS SUMMARY | 2024-09-23 10:29 | XMS_ITS ---
Author Organization [facility] Address [address] [place] [address] Care Team Providers Care Personnel Specialist Name Role Phone Wayne Carrillo Primary Care Provider REASON FOR VISIT 09/13 Scheduled - r/s HRT Insert Encounters Encounter Location Date Provider Diagnosis [facility] [address] [place] [address] 09/08/2024 Wayne Carrillo Plan Of Treatment Next Appt Details Provider Name:Stephanie Ledbetter, 0 11/04/2024 01:30:00 PM, [address] [place], [address], Provider Name:Wayne Carrillo, 11/17/2024 01:00:00 PM, [address] [place], [address], Progress Notes * Ngozi DUFFYDOB: [birth year] (59 yo F)Acc No.[id number]:09/08/2024 Patient: Ngozi PICHARDO :1965 A ge:59 Y S ex:Female Address:[address] [place], [address] * true * Date: Generated for Suzannei ng/Fadennyg/eTransmitting on: 11/24/2023 10:28 AM BREAD 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
--- OUTSIDE RECORDS SUMMARY | 2024-09-23 10:29 | XMS_ITS ---
Author Organization [facility] Address [address] [place] [address] Care Team Providers Care Cytogenetic Technician Name Role Phone Wayne Carrillo Primary Care Provider REASON FOR VISIT HRT Insert Encounters Encounter Location Date Provider Diagnosis [facility] [address] [place] [address] 08/26/2024 Wayne Carrillo Plan Of Treatment Next Appt Details Provider Name:Stephanie Ledbetter, 0 11/04/2024 01:30:00 PM, [address] [place], [address], Provider Name:Wayne Carrillo, 11/17/2024 01:00:00 PM, [address] [place], [address], Progress Notes * DUFFY, NgoziDOB: [birth year] (59 yo F)Acc No.[id number]:08/26/2024 Patient: Ngozi PICHARDO Provider: ABIGAIL Jimenez :1965 A ge:59 Y S ex:Female Date:08/26/2024 Address:[phone] Subjective: * Chief Complaints: * 1 . HRT Insert. * Medical History: Objective: * Vitals: Assessment: Plan: * Treatment: * Images: Billing Information: * Visit Code: * Procedure Codes: * Electronic signature of Andr gricelda Carrillo on 09/23/2024 at 10:28 AM LICENSING REPRESENTATIVE Sign off status: Pending * Provider: ABIGAIL Jimenez Date: 10/26/2023 Generated for Jeffry leon/Sabrina/Diony on: 11/24/2023 10:28 AM LICENSING REPRESENTATIVE
--- OUTSIDE RECORDS SUMMARY | 2024-09-23 10:29 | XMS_ITS | Patient Health Record ---
Author Organization [facility] Address [address] [place] [address] Care Team Providers Care Arc Trimmer Name Role Phone Wayne Carrillo Primary Care Provider Stephanie Ledbetter Unavailable [phone] Allergies Allergen (clinical drug ingredient) Drug/Non Drug Allergy documented on EMR Reaction Allergy Type Onset Date Status lisinopril Lisinopril Swelling Drug Allergy Activ e Substance with 1-bdqrial-7-methylgluta ryl-coenzyme A reductase inhibitor mechanism of action (substance) Statins Swelling Drug Allergy Active Results Component Value Reference Range Notes TESTOSTERONE, TOTAL, LC/MS/M S Reviewed date:08/16/2024 09:31:59 AM Interpretation: Performing Lab:[facility] [place] [address], [address]tk[facility]xmokkJB[address] Keri Hartley MD,PhD Notes/Report: 0; 0; 0 TESTOSTERONE, TOTAL, MS 154 2-45 ng/dL For additional information, please refer to https://education.[employer] .[facility]/faq/TotalTestosteroneLCMSMS (This link is being provided for informational/educational purposes only.) (Note) This test was developed and its analytical performance characteristics have been determined by [employer]. It has not been cleared or approved by the FDA. This assay has been validated pursuant to the CLIA regulations and is used for clinical purposes. [facility] [address] [address],[address] [facility] [address] Keri Hartley MD, PhD [facility] Reviewed date:08/12/2024 08:57:17 AM Interpretation: Performing Lab:[facility], [place] TctjUC[address] Jimmy Gonzalez Notes/Report: 0; 0; 0 FSH 8.3 Reference Range Follicular Phase 2.5-10.2 Mid-cycle Peak 3.1-17.7 Luteal Phase 1.5- 9.1 Postmenopausal 23.0-116.3 ESTRADIOL Reviewed date:08/12/2024 08:57:17 AM Interpretation: Performing Lab:[facility], [place] [id number] Jimmy Gonzalez Notes/Report: 0; 0; 0 ESTRADIOL 98 Reference Range Follicular Phase: 19-144 Mid-Cycle: 64-357 Luteal Phase: 56-214 Postmenopausal: < or = 31 Reference range established on post-pubertal patient population. No pre-pubertal reference range established using this assay. For any patients for whom low Estradiol levels are anticipated (e.g. males, pre-pubertal children and hypogonadal/post-menopausal females), the [facility] Estradiol, Ultrasensitive, LCMSMS assay is recommended (order code 47799). Please note: patients being treated with the drug fulvestrant (Faslodex(R)) have demonstrated significant interference in immunoassay methods for estradiol measurement. The cross reactivity could lead to falsely elevated estradiol test results leading to an inappropriate clinical assessment of estrogen status. [facility] [facility] order code [id number], Ultrasensitive LC/MS/MS demonstrates negligible cross reactivity with fulvestrant. Sensitive Estradiol (IH) Reviewed date:05/31/2024 09:19:38 AM Interpretation: Performing Lab: Notes/Report: Access 2 ([id number]), [facility] Testosterone, Total () Reviewed date:05/31/2024 09:19:38 AM Interpretation: Performing Lab: Notes/Report: Access 2 ([id number]), [facility] FSH (IH) Reviewed date:05/31/2024 09:19:38 AM Interpretation: Performing Lab: Notes/Report: Access 2 ([id number]), [facility] Sensitive Estradiol (IH) Reviewed date:12/15/2023 04:25:42 PM Interpretation: Performing Lab: Notes/Report: Access 2 ([id number]), Access 2 [facility] Testosterone, Total (IH) Reviewed date:12/15/2023 04:25:42 PM Interpretation: Performing Lab: Notes/Report: Access 2 ([id number]), Access 2 [facility] FSH (IH) Reviewed date:12/15/2023 04:25:42 PM Interpretation: Performing Lab: Notes/Report: Access 2 ([id number]), Access 2 [facility] Sensitive Estradiol (IH) Reviewed date:03/15/2024 01:07:12 PM Interpretation: Performing Lab: Notes/Report: Access 2 ([id number]), [facility] Testosterone, Total (IH) Reviewed date:03/15/2024 01:07:12 PM Interpretation: Performing Lab: Notes/Report: Access 2 ([id number]), [facility] FSH (IH) Reviewed date:03/15/2024 01:07:12 PM Interpretation: Performing Lab: Notes/Report: Access 2 ([id number]), [facility] Reason For Referral No Information Medications Medication [...] Problem Status W/U Status Risk Notes Problem 363933617 Menopausal and female climacteric states (N95.1) Active confirmed Problem 44285198 Chronic hypertension (I10) Active confirmed Problem Female climacteric state (557705287) Female climacteric state (N95.1) Active confirmed Problem 609774701 Climacteric (N95.1) Active confirmed Problem Menopause (581579899) 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 Vital Signs Blood pressure diastolic 68 mm Hg 08/17/2024 Height 70 in 08/17/2024 Blood pressure systolic 124 mm Hg 08/17/2024 Weight 173.2 lbs 08/17/2024 BMI 24.85 kg/m2 08/17/2024 Encounters Encounter Location Date Provider Diagnosis [facility] [address] [place] [address] 12/21/2023 Wayne Carrillo Menopausal and femal e climacteric states N95.1 [facility] [address] [place] [address] 03/18/2024 Wayne Carrillo Menopausal and femal e climacteric states N95.1 [facility] [address] [place] [address] 06/03/2024 Wayne Carrillo Menopausal and femal e climacteric states N95.1 [facility] [address] [place] [address] 08/17/2024 Stephanie Tank Menopausal and femal e climacteric states N95.1 [facility] [address] [place] [address] 12/14/2023 Wayne Carrillo Menopausal and femal e climacteric states N95.1 [facility] [address] [place] [address] 03/11/2024 Wayne Carrillo Menopausal and femal e climacteric states N95.1 [facility] [address] [place] [address] 05/27/2024 Wayne Carrillo Menopausal and femal e climacteric states N95.1 [facility] [address] [place] [address] 08/10/2024 Stephanie Tank Menopausal and femal e climacteric states N95.1 [facility] [address] [facility] [place], [place] [id number] 11/21/2023 Wayne Carrillo [facility] [address] [place] [address] 09/08/2024 Wayne Carrillo Assessments Encounter Date Diagnosis (ICD Code) Assessment Notes Treatment Notes Treatment Clinical Notes Section Notes 12/14/2023 Menopausal and female climacteric states (ICD-10 [...] before next insertion if any concerns 06/03/2024 Menopausal and female climacteric states (ICD-10 - N95.1) 05/27/2024 Menopausal and female climacteric states (ICD-10 - N95.1) 12/21/2023 Other -HRT pellet inserted as documented [...] Provider Name:Stephanie Ledbetter, 0 11/04/2024 01:30:00 PM, [address], [place], [address], Provider Name:Wayne Carrillo, 11/17/2024 01:00:00 PM, [address], [place], [address], Insurance Providers Payer Name Payer Address Payer Phone Subscriber Number Group Number Insured Name Patient Relationship to Insured Coverage Start Date Coverage End Date BCBS - (Client Bill) [address] [place] [id number] Ngozi Paez Self - patient is the insured Medical (General) History Medical History History ICD Code Arthritis Cancer HTN Surgical History Surgery Date(Month/Year) Partial hysterectomy 1993 Ankle fusion 02/2016
--- OUTSIDE RECORDS SUMMARY | 2024-09-23 10:29 | XMS_ITS ---
Author Organization [facility] Address [address] [place] [address] Care Team Providers Care Beer Cooler Name Role Phone Wayne Carrillo Primary Care Provider Stephanie Ledbetter Unavailable [phone] Allergies Allergen (clinical drug ingredient) Drug/Non Drug Allergy documented on EMR Reaction Allergy Type Onset Date Status lisinopril Lisinopril Swelling Drug Allergy Activ e Substance with 6-ljmmejk-3-methylgluta ryl-coenzyme A reductase inhibitor mechanism of action [...] 08/17/2024 Encounters Encounter Location Date Provider Diagnosis [facility] [address] [place] [address] 08/17/2024 Stephanie Ledbetter Menopausal and femal e [...] Provider Name:Stephanie Anatoly, 0 11/04/2024 01:30:00 PM, [address] [place], [address], Provider Name:Wayne Carrillo, 11/17/2024 01:00:00 PM, [address] [place], [address], Progress Notes * Ngozi DUFFYDOB: [birth year] (59 yo F)Acc No.[id number]:08/17/2024 Patient: Ngozi PICHARDO Provider: Murphy Ledbetter DNP :1965 A ge:59 Y S ex:Female Date:08/17/2024 Address:[facility] [place] Pcp:Wayne Carrillo [...] Medical History: A rthritis, Cancer, HTN. 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 * F GLUER Sign off status: Completed true * Provider: Murphy Ledbetter DNP Date: 10/17/2023 Generated for Jeffry dukes/Sabrina/Diony on: 11/24/2023 10:28 AM SCARF GLUER History and Physical Notes * HPI (History [...]
[2024-09-23] MEDS: SODIUM CHLORIDE 0.9 % (FLUSH) 10 ML SYRINGE IVF (11:19)
[2024-09-23] MEDS: 0.9 % SODIUM CHLORIDE 500 ML 500 ML 100 ML IV (11:19)
--- NOTE | 2024-09-23 11:50 | W.PM.H&PU ---
History & Physical Update History & Physical Update H&P Reviewed and patient assessed: No changes noted
[2024-09-23] MEDS: CEFAZOLIN 2 GM in 0.9 % SODIUM CHLORIDE Mini-bag 100 ML IVPB (11:55)
--- NOTE | 2024-09-23 12:47 | PM.ORPRC ---
Procedure Note Date of procedure: 09/23/24 Procedure: PREOPERATIVE DIAGNOSIS: 1. Left knee lateral meniscus tear 2. Left knee parameniscal cyst POSTOPERATIVE DIAGNOSIS: 1. Left knee lateral meniscus tear PROCEDURE: 1. Left knee arthroscopic partial lateral meniscectomy SURGEON: Popeye Archuleta M.D. COMMERCIAL FINANCE MANAGER: Juan M RUDOLPH. Of note, an fish hatchery assistant was critical for this case to aid in patient positioning, knee manipulation, instrument exchange, and closure. ANESTHESIA: Spinal EBL: 2ml TOURNIQUET: 20 minutes at 300 torr COMPLICATIONS: None evident INDICATIONS: The patient is a pleasant 59-year-old female who has experienced left knee pain particularly with any twisting or turning. Physical exam was concerning for medial meniscus tear, this was confirmed on MRI. Additionally, attempted nonoperative management has been tried, and failed. Thus, surgery was recommended. FINDINGS: Complex tearing lateral meniscus extending from the posterior horn/midbody junction all the way around to the anterior horn. The anterior root was intact. The tearing was complex pattern. No clear cyst was visualized or encountered. DESCRIPTION OF PROCEDURE: After a thorough discussion of risks, benefits, and alternatives, the patient was brought to the operating room and placed upon the operating table. Induction of anesthesia was undertaken as previously noted. 1 g IV Ancef was administered within 1 hr of incision preoperatively. Appropriate time-out was performed identifying proper patient, site, and procedure. The left lower extremity was prepped and draped in the appropriate sterile fashion using ChloraPrep. The limb was exsanguinated and tourniquet inflated. Anterolateral and anteromedial portals were established with an 11 blade, and a diagnostic arthroscopy was performed. This identified the findings as noted above. Following the diagnostic arthroscopy, a partial lateral menisectomy was performed with the combination of basket forceps, apollo cautery, and a motorized shaver. Following this, the meniscus was re-probed and found to be stable. Approximately 20-25% of the overall meniscus required resection. At this stage, the shaver was reinserted into the suprapatellar pouch and all remaining meniscal debris was evacuated. Instruments were removed, excess fluid was drained, and closure performed with 4-0 Monocryl with Steri-Strips. Dressings were applied, the tourniquet deflated, and the patient was awoken from anesthesia and transferred to the PACU in stable condition. PLAN: 1. Weightbear as tolerated operative extremity. Crutch / walker ambulation assistance PRN. Straight leg raise to be initiated starting tomorrow by the patient. 2. Ice, acetominophen and/or ibuprofen, and Oxycodone for pain as needed. 3. Knee range of motion and quad sets/straight leg raise regularly 4. Follow up with PA visit in 7-10 days. for a wound check. Initiate physical therapy at that time
--- NOTE | 2024-09-23 12:56 | W.ANESCHARGE ---
Anesthesia Charges Start Date/Time Anesthesia Start Date: 09/23/24 Anesthesia Start Time: 11:52 Stop Date/Time Anesthesia Stop Date: 09/23/24 Anesthesia Stop Time: 12:55
--- NOTE | 2024-09-23 13:07 | W.ANESCHARGE ---
Anesthesia Charges Start Date/Time Anesthesia Start Date: 09/23/24 Anesthesia Start Time: 11:52 Stop Date/Time Anesthesia Stop Date: 09/23/24 Anesthesia Stop Time: 12:55
== END 2024-09-23 14:29 | disposition home or self-care (01) ==
LOC: OR 10:27
PROVIDERS: PCP Emergency Medicine; Visit Provider Orthopaedic Surgery Sports Medicine
PROC: (CPT 29870; principal; 2024-09-23 11:45)
DX: S83.272A Complex tear of lateral meniscus, current injury, left knee, initial encounter (principal)
CPT/HCPCS: 29881; 01400; J0690; J2250; J2704; J3010; J7030

== ENCOUNTER 2024-12-13 08:18 | Outpatient (CLI) | payer BC, SELFPAY ==
--- NOTE | 2024-12-13 08:15 | CRLHL7_ITS ---
For Patients: As a result of the Century Cures Act, medical imaging exams and procedure reports are released immediately into your electronic medical record. You may view this report before your referring provider. If you have questions, please contact your health care provider. BILATERAL SCREENING MAMMOGRAM WITH COMPUTER-AIDED DETECTION AND TOMOSYNTHESIS TECHNIQUE: CC and MLO views were obtained. These mammographic images have been obtained using full-field digital technique. These mammographic images were interpreted with the benefit of computer-aided detection. Breast Tomosynthesis was used in this interpretation. COMPARISON FILM: 12/11/23, 09/24/21, 06/04/20. FINDINGS: The breasts are heterogeneously dense, which may obscure small masses IMPRESSION: There is no radiographic evidence for malignancy. ASSESSMENT: BI-RADS Category 1: Negative RECOMMENDATION: Routine screening mammogram in 1 year. A lay language report of this examination will be provided to the patient. Faisal Lundy M.D. Diagnostic Radiologist [email or web address]/[email or web address] Transcribed: 2:18 p.mReba bautista/Dictated by: Faisal Lundy MD @ 12/13/2024 9:03:00 AM (Electronically Signed)
== END 2024-12-13 08:19 | disposition home or self-care (01) ==
LOC: MAMMO 08:18
PROVIDERS: PCP Emergency Medicine; Referring Provider Nurse Practitioner; Visit Provider Emergency Medicine
DX: Z12.31 Encounter for screening mammogram for malignant neoplasm of breast (principal); R92.333 Mammographic heterogeneous density, bilateral breasts
CPT/HCPCS: 77063; 77067

== ENCOUNTER 2025-02-16 14:33 | Outpatient (CLI) | payer BC, SELFPAY ==
--- NOTE | 2025-02-16 14:45 | MR_ITS ---
[address] [address] Phone:?[phone] Fax:?[phone] Referring Physician Information: Popeye Archuleta M.D. [address] [address] Phone:?[phone] Fax:?[phone] Patient:Tash Drummond D.Jodi.B:?1965 Sex:?Female Phone:?[phone] [facility] MRN:?[id number] Exam Date:?02/16/2025 EXAM: MRI of the RIGHT SHOULDER, without contrast CLINICAL: History of prior rotator cuff repair surgery. Evaluate for rotator cuff tear. COMPARISONS: MRI 05/16/2024. X-rays 05/03/2024. TECHNICAL: Multiplanar multisequence MRI of the right shoulder was obtained. SEDATION: None. CONTRAST: None. FINDINGS: Rotator cuff: Supraspinatus/Infraspinatus: There are postoperative changes of prior rotator cuff repair surgery. There is ill-defined high-grade near full-thickness to full-thickness tearing of the supraspinatus tendon with proximal retraction of torn tendon fibers by up to 19 mm as seen on coronal series 5 image 11-14. There is tendinosis and mild partial interstitial tearing of the distal infraspinatus tendon. No evidence of significant interval increased fatty atrophy of the muscles compared to prior exam. Teres minor: No tendinosis, tear or atrophy. Subscapularis: Postoperative changes of prior tendon repair surgery. Appearance of the tendon likely reflects a combination of tendinosis and postoperative change with minimal partial interstitial tearing of the distal tendon seen on sagittal series 9 image 13. No fatty atrophy of the muscle. Bursae: Subacromial-subdeltoid: Mild bursal fluid. Subcoracoid: No significant bursal fluid. Coracoacromial arch: Acromion morphology: Postoperative changes of prior acromioplasty. Acromiohumeral space: Within normal limits. Coracohumeral space: Within normal limits. Biceps tendon, long head: Intra-articular tendon is not visualized consistent with sequelae of retracted rupture or postoperative change. Imaged proximal extra articular tendon is markedly attenuated. Glenohumeral joint: Small volume of glenohumeral joint fluid is present with synovitis. Articular cartilage: No chondral defects identified. Capsule: There is apparent thickening of the inferior glenohumeral ligament. No capsular disruption. Labrum: No new labral tear identified on this nonarthrogram exam. No perilabral cyst identified. Bones: Postoperative changes of prior rotator cuff repair surgery with associated surgical anchors in place within the proximal humerus. No evidence of bone marrow edema or fracture. Acromioclavicular joint: No acute injury, arthropathy, or inferior hypertrophy. IMPRESSION: 1. Postoperative changes of prior rotator cuff repair surgery. There is ill- defined high-grade near full-thickness to full-thickness tearing of the supraspinatus tendon with proximal retraction of torn tendon fibers by up to 19 mm. Tendinosis and mild partial interstitial tearing of the distal infraspinatus tendon. 2. Appearance of the subscapularis tendon likely reflecting a combination of tendinosis and postoperative change with minimal partial interstitial tearing of the distal tendon. 3. Intra-articular long head biceps tendon is not visualized which may reflect sequelae of retracted rupture or postoperative change. 4. Apparent thickening of the inferior glenohumeral ligament which can be seen in patients with adhesive capsulitis, recommend close clinical correlation. JCZ Electronically signed on 02/17/2025 8:42:00 AM by oNlan Gama D.O.
== END 2025-02-16 14:34 | disposition home or self-care (01) ==
LOC: MRI 14:34
PROVIDERS: PCP Emergency Medicine; Visit Provider Orthopaedic Surgery Sports Medicine
DX: M25.511 Pain in right shoulder (principal); M75.101 Unspecified rotator cuff tear or rupture of right shoulder, not specified as traumatic; S46.211A Strain of muscle, fascia and tendon of other parts of biceps, right arm, initial encounter; M75.01 Adhesive capsulitis of right shoulder; Z98.890 Other specified postprocedural states
CPT/HCPCS: 73221

== ENCOUNTER 2025-02-23 14:44 | Outpatient (CLI) | payer BC, SELFPAY | END 2025-02-23 14:45 | disposition home or self-care (01) | LOC: LKVREF 14:45 | PROVIDERS: PCP Emergency Medicine; Visit Provider Emergency Medicine | DX: I10 Essential (primary) hypertension (principal) | CPT/HCPCS: 80048 ==

== ENCOUNTER 2025-03-15 06:59 | Day surgery (SDC) | payer BC, SELFPAY ==
[2025-03-15] VITALS (17 sets, daily range): BP systolic 111–155; BP diastolic 76–91; PULSE 75–96; RESP 12–16; TEMP 36.6–36.9; O2SAT 92–98; BMI 26.6
[2025-03-15] MEDS: SODIUM CHLORIDE 0.9 % (FLUSH) 10 ML SYRINGE IVF (07:17)
[2025-03-15] MEDS: LACTATED RINGERS 1000 ML 1,000 ML 100 ML IV ×2 (07:17→10:45)
--- NOTE | 2025-03-15 07:24 | W.PM.H&PU ---
History & Physical Update History & Physical Update H&P Reviewed and patient assessed: No changes noted
[2025-03-15] MEDS: fentaNYL 100 MCG/2 ML inj IVP (07:47)
[2025-03-15] MEDS: MIDAZOLAM HCL 1 MG/ML inj IVP (07:47)
--- NOTE | 2025-03-15 07:51 | P.NB_ITS ---
Nerve Block Nerve Block Time Seen by Provider: 07:50 Date Seen: 03/15/25 Type of block requested by surgeon for post-operative analgesia: supraclavicular Side: right Time out performed: Yes Verification of patient name: Yes Verification of date of : Yes Site marking: site marked Name of person performing procedure: Herve Continuous monitoring Was continuous monitoring of O2 sat, B/P, environmental monitoring technician, recorded every 15 minutes?: Yes Procedure Checklist: sterile prep, needles and gloves Ultrasound guided. Images saved: Yes Medications given in 5ml increments after negative aspiration: Marcaine %: 0.25 mL: 5 and Exparel mL: 10 Needle gauge: 22 Patient tolerated procedure well: Yes Block Charges Block Charge (with Pro Fee): Brachial Plexus Use of Ultrasound Machine for Block: Yes- US Guidance/pain block
--- NOTE | 2025-03-15 07:52 | P.ANES_ITS ---
Anesthesia Charges Start Date/Time Anesthesia Start Date: 03/15/25 Anesthesia Start Time: 08:21 Stop Date/Time Anesthesia Stop Date: 03/15/25 Anesthesia Stop Time: 11:11 Coding CPT Codes CPT Codes: ANESTH SURGERY OF SHOULDER - 04629 ([id number]) P2 - PATIENT W/MILD SYST DISEASE, QK - POLICE INSPECTOR 2-4 CNCRNT ANES PROC, QX - ACCOUNTS PAYABLE ADMINISTRATOR SVC W/ MD MED DIRECTION
--- NOTE | 2025-03-15 07:52 | W.ANESCHARGE ---
Anesthesia Charges Start Date/Time Anesthesia Start Date: 03/15/25 Anesthesia Start Time: 08:21 Stop Date/Time Anesthesia Stop Date: 03/15/25 Anesthesia Stop Time: 11:11 Coding CPT Codes CPT Codes: ANESTH SURGERY OF SHOULDER - 64391 ([id number]) P2 - PATIENT W/MILD SYST DISEASE, QK - OFFSHORE WIND OPERATIONS MANAGER 2-4 CNCRNT ANES PROC, QX - METER INSTALLER SVC W/ MD MED DIRECTION
--- NOTE | 2025-03-15 07:54 | SUR.PREOP ---
TIME?OUT:?0747 PT/RN/MDA?VERIFICATION?OF?SURGICAL?SITE,?PROCEDURE,?AND?CONSENT OBTAINED?PRIOR?TO?INVASIVE?PROCEDURE.
[2025-03-15] MEDS: CEFAZOLIN 1 GM inj IVP (08:35)
--- NOTE | 2025-03-15 08:56 | P.ANES_ITS ---
Anesthesia Charges Start Date/Time Anesthesia Start Date: 03/15/25 Anesthesia Start Time: 08:21 Stop Date/Time Anesthesia Stop Date: 03/15/25 Anesthesia Stop Time: 11:11 Coding CPT Codes CPT Codes: ANESTH SURGERY OF SHOULDER - 32631 ([id number]) P2 - PATIENT W/MILD SYST DISEASE, QK - MEAT STUFFER 2-4 CNCRNT ANES PROC, QX - GAMMA RAY OPERATOR SVC W/ MD MED DIRECTION
--- NOTE | 2025-03-15 08:56 | W.ANESCHARGE ---
Anesthesia Charges Start Date/Time Anesthesia Start Date: 03/15/25 Anesthesia Start Time: 08:21 Stop Date/Time Anesthesia Stop Date: 03/15/25 Anesthesia Stop Time: 11:11 Coding CPT Codes CPT Codes: ANESTH SURGERY OF SHOULDER - 30257 ([id number]) P2 - PATIENT W/MILD SYST DISEASE, QK - PROJECT MANAGEMENT ENGINEER 2-4 CNCRNT ANES PROC, QX - MRI TECHNICIAN SVC W/ MD MED DIRECTION
[2025-03-15] MEDS: EPINEPHrine 1 MG in SODIUM CHLORIDE IRRIG SOLUTION 3,000 ML 9003 MG IRRIGATION ×8 (09:00→10:40)
[2025-03-15] MEDS: hydrOXYzine pamoate 25 MG CAPSULE PO (09:58)
--- NOTE | 2025-03-15 11:03 | P.ORPRC_ITS ---
Procedure Note Date of procedure: 03/15/25 Procedure: PREOPERATIVE DIAGNOSES: 1. Right shoulder rotator cuff re-tear(Supraspinatus) 2. Right shoulder retained sutures from previous repair POSTOPERATIVE DIAGNOSES: 1. Right shoulder rotator cuff re-tear(Supraspinatus) 2. Right shoulder retained sutures from previous repair NAME OF OPERATION: 1. Right shoulder arthroscopic rotator cuff re-repair with allograft augmentation due to poor tissue quality - 33% added difficulty for this case due to the revision nature. Scar tissue was abundant within the subacromial space. Previous sutures required extra work to remove these torn suture materials. And also required more excursion improvement of the rotator cuff tissue to allow a re repair. SURGEON: Popeye Archuleta MD MEDICAL I D SALES: Konrad Boland PA-C. Of note, a skilled engineering assistant was critical for this case to aide in patient positioning, suture manipulation, arm positioning, instrument positioning, and closure. ANESTHESIA: General plus preoperative supraclavicular block. EBL: 25ml IMPLANTS: Arthrex 4.75 mm BioComposite SwiveLock suture anchor (x4 - 2 of which 4 standard and 2 of which were knotless) 20 x 25 mm Dermaflex allograft patch augmentation on the surface rotator. COMPLICATIONS: None evident INDICATIONS: The patient is a pleasant, 59-year-old female who has experienced right shoulder pain that has been increasing in recent time. Physical exam and imaging were consistent with a rotator cuff re-tear. Given their findings, as well as the weakness and pain, and inadequate response to nonoperative management, recommendation was made for surgery. FINDINGS: Exam under anesthesia revealed stable shoulder with excellent range of motion. The diagnostic arthroscopy revealed healthy chondral surfaces of the glenohumeral joint. The Subscapularis tendon was intact and with a healthy attachment. The long head of the biceps tendon was absent consistent with previous tenotomy/tenodesis. The superior rotator cuff tendon was found to be torn full-thickness of the supraspinatus with a slight reverse L-shaped type tear causing some posterior retraction this was worthy marginal convergence repair. The labrum was relatively healthy or unchanged from previous surgery 08/2024. No loose bodies were identified within the pouch or subscapularis recess. PROCEDURE: Following a thorough discussion of risks, benefits, and alternatives, consent was obtained and the right shoulder was marked. The patient was brought to the operating room and placed supine on the operating table. Induction of anesthesia was completed after preoperative supraclavicular block was administered in preop holding. Appropriate time out was performed identifying proper patient, site, and procedure. 2 g IV Ancef was administered within 1 hour of incision preoperatively. The right upper extremity was prepped and draped in the appropriate sterile fashion using ChloraPrep prep. This was after the patient was positioned in the beach chair with their head in neutral alignment and all bony prominences well padded. The shoulder was insufflated with 20mL of normal saline via an 18g spinal needle from a posterior approach. An 11 blade skin incision allowed a blunt trochar to be inserted and diagnostic arthroscopy to be performed with the findings as noted above. An anterior portal was established with an outside in technique. This allowed the probe to be inserted and confirm the diagnostic arthroscopic findings. Thereafter, the subacromial space was entered. Here, a complete bursectomy was performed with an additional lysis of adhesions to our increased tissue excursion given the revision nature. Suture material from the previous anchors also had to be removed with a laparoscopic needle over the road driver. Thereafter, the rotator cuff was further assessed and found to have retorn through the midportion of the supraspinatus. Initially showed have a full- thickness small hole tear, but with further debridement the tissue was of poor quality and had a reverse 'L' shaped tear. After further debridement of the rotator cuff tissue hand finding that the tear had retracted posteriorly as well as to some degree medially, it was discovered that marginal convergence sutures will be needed due to this split medially. The greater tuberosity was repaired in a small section as majority the footprint was still connected to the greater tuberosity and not taken down. However, we were able to place a 4.75 mm BioComposite SwiveLock suture anchor on the greater tuberosity immediately lateral/adjacent to the articular cartilage on the mid humeral head. Fiber tapes that were pre-loaded were passed independently mostly through the posterior leaflet. The 2 separate eyelet sutures were also passed for marginal convergence purposes on either side of the medial split. Then, 2 more marginal convergence sutures were used free from any anchors used to reapproximate the supraspinatus split medially. The 4 tails from the medial anchor were brought to 2 separate lateral row anchors. These were placed far lateral and either anterior or posterior. These were knotless 4.75 mm BioComposite SwiveLock suture anchors. A dermal allograft augmentation was elected over the top of the rotator cuff repair given the revision scenario and the poor tissue quality. Thus, the allograft was selected, placed, and secured to the medial rotator cuff with 2 separate fiber stitch anchors. These were placed in horizontal mattress type configuration along the medial border. The lateral corners of this dermal allograft were then secured with the knotless mechanism from the lateral row anchors. This had good covering to the rotator cuff repair region for added biology and structural support. The rotator cuff showed excellent reapproximation of the greater tuberosity with good security upon probing. Prior to anchor over the road driver removal, the eyelet sutures were tugged on for each anchor and found that the anchor had excellent stability within the bone. The shoulder was placed through range of motion and found to be stable. The rotator cuff was re-probed and found to be stable. Instruments were removed. Excess fluid was drained, closure performed with 4-0 Monocryl and Steri-Strips. Dressings were applied. Sling was applied. The patient was awoken from anesthesia and transferred to the PACU in stable condition. A skilled engineering assistant was critical for this case to aid in patient positioning, limb positioning, skill to manipulate arthroscopic instruments and camera, suture management, patient safety, and closure. *Again, 33% added difficulty for this case due to the revision nature. Scar tissue was abundant within the subacromial space. Previous sutures required extra work to remove these torn suture materials. And also required more excursion improvement of the rotator cuff tissue to allow a re repair. PLAN: 1. Elbow, forearm, wrist and digit range of motion as tolerated. 2. Encouraged ice. 3. Oxycodone for pain as needed. 4. Sling at all times except for ROM and showering. 5. Follow up with PA visit in 1-2 weeks for wound check. Rehab will be slow overall. Initiate physical therapy following that visit for passive range of motion. Initiate active assisted range of motion at 6 weeks. May do pendulums now.
[2025-03-15] MEDS: OXYCODONE 5 MG TABLET PO (12:05)
== END 2025-03-15 13:19 | disposition home or self-care (01) ==
LOC: OR 06:59
PROVIDERS: PCP Emergency Medicine; Visit Provider Orthopaedic Surgery Sports Medicine
PROC: (CPT 29805; principal; 2025-03-15 08:15)
DX: M75.121 Complete rotator cuff tear or rupture of right shoulder, not specified as traumatic (principal); G89.18 Other acute postprocedural pain; I10 Essential (primary) hypertension; E78.5 Hyperlipidemia, unspecified
CPT/HCPCS: 29827; 01630; 64415; 76942; A9270; C1713; J0171; J0665; J0666; J0690; J1100; J2250; J2371; J2405; J2704; J3010; J3490; J7120; L3670; Q4125

== ENCOUNTER 2025-06-23 12:45 | Outpatient (CLI) | payer OTHER, SELFPAY ==
--- NOTE | 2025-06-23 13:00 | CRLHL7_ITS ---
For Patients: As a result of the Cures Act, medical imaging exams and procedure reports are released immediately into your electronic medical record. You may view this report before your referring provider. If you have questions, please contact your health care provider. INDICATION: Lung cancer screening. History of smoking. TECHNIQUE: Low-dose lung cancer screening non-contrast CT chest. Dose reduction techniques were used. COMPARISON: 06/20/2024 FINDINGS: NODULES: Tiny right upper lobe pulmonary nodule measures 2 millimeters, 359, unchanged. Tiny subpleural nodule within the anterior left lobe, 362, unchanged. LUNGS AND PLEURA: Emphysema. MEDIASTINUM: No adenopathy. CORONARY ARTERY CALCIFICATION: Mild. LIMITED UPPER ABDOMEN: Similar appearance of the left adrenal gland. MUSCULOSKELETAL: Unchanged appearance of the T3 vertebral body. IMPRESSION: Negative for lung cancer screening purposes. LUNG-RADS CATEGORY: 2: Benign. RADIOLOGIST RECOMMENDATION: Continue annual screening, if eligible, with low-dose CT chest in 12 months. Please note that all CT scans at this facility use dose modulation, iterative reconstruction, and/or weight-based dosing when appropriate to reduce radiation dose to as low as reasonably achievable. Dictated by Faisal Lundy MD @ 06/23/2025 1:27:33 PM (Electronically Signed)
== END 2025-06-23 12:46 | disposition home or self-care (01) ==
LOC: CT 12:47
PROVIDERS: Visit Provider Physician Assistant Medical
DX: Z12.2 Encounter for screening for malignant neoplasm of respiratory organs (principal); Z87.891 Personal history of nicotine dependence
CPT/HCPCS: 71271

== ENCOUNTER 2025-09-06 08:49 | Outpatient (CLI) | payer OTHER, SELFPAY | END 2025-09-06 08:50 | disposition home or self-care (01) | LOC: NFLDREF 09-08 14:28 | PROVIDERS: PCP Physician Assistant Medical; Visit Provider Physician Assistant Medical | DX: Z78.0 Asymptomatic menopausal state (principal) | CPT/HCPCS: 80061; 84443 ==